=== PATIENT | female | born 1960 | race Caucasian/White ===

== ENCOUNTER 2018-10-31 18:18 | Inpatient (IN) | payer OTHER ==
--- OUTSIDE RECORDS SUMMARY | 2018-10-31 18:20 | XMS REPORT | Continuity of Care Document ---
:1960 Author Organization Interface Problems Problem Status Onset Classification Date Comments Source Date Reported INCISIONAL Active [facility] H[facility] Crohn's Active Problem 09/23/2016 [facility] disease [facility] Hernia, Active Problem 09/23/2016 [facility] incisional [facility] Medications Medication Details Route Status Patient Ordering Order Source Instructions Provider Date Hydromorphone 0.5 mg, Route: Inactive 09/21[facility] Radha IVP, Q5Min, 2015 Medical Dosing Weight Center 51.364, kg, PRN Pain Score 7-10, Start date: 09/20/16 18:30:00 CELLULAR EQUIPMENT REPAIRER, Duration: 4 doses or times, Stop date: Limited # of times Flumazenil 0.2 mg, Route: Inactive 09/21[facility] Radha IVP, PRN, Dosing 2015 Medical Weight 51.364, Center kg, PRN Benzodiazepine Reversal, Initial dose, Start date: 09/20/16 18:30:00 CELLULAR EQUIPMENT REPAIRER, Duration: 30 day, Stop date: 10/20/16 18:29:00 CELLULAR EQUIPMENT REPAIRER Albuterol 0.83 2.49 mg, Route: Inactive 09/21[facility] Radha MG/ML Inhalant NEB, Q20Min, 2015 Medical Solution Dosing Weight Center 51.364, kg, PRN Wheezing, Priority: STAT, Start date: 09/20/16 18:30:00 CELLULAR EQUIPMENT REPAIRER, Duration: 30 day, Stop date: 10/20/16 18:29:00 CELLULAR EQUIPMENT REPAIRER Naloxone 0.4 mg, Route: Inactive 09/21[facility] Radha IVP, Q2MIN, 2015 Medical Dosing Weight Center 51.364, kg, PRN Narcotic Reversal, Start date: 09/20/16 18:30:00 CELLULAR EQUIPMENT REPAIRER, Duration: 8 doses or times, Stop date: Limited # of times Promethazine 6.25 mg, Route: Inactive 09/21[facility] Radha IVPB, ONCE, 2015 Medical Dosing Weight Center 51.364, kg, PRN Nausea & Vomiting, Start date: 09/20/16 18:30:00 CELLULAR EQUIPMENT REPAIRER Ondansetron 4 mg, Route: Inactive [facility] IVP, ONCE, 2016 Medical Dosing Weight Center 51.364, kg, PRN Nausea & Vomiting, Start date: 09/20/16 18:30:00 CELLULAR EQUIPMENT REPAIRER Oxycodone 5 mg, Route: PO, Inactive [facility] Drug form: TAB, 2016 Medical Q4H, Dosing Center Weight 51.364, kg, PRN Pain Score 4-6, Start date: 09/20/16 18:30:00 CELLULAR EQUIPMENT REPAIRER, Duration: 30 day, Stop date: 10/20/16 18:29:00 CELLULAR EQUIPMENT REPAIRER Hydralazine 10 mg, Route: Inactive [facility] IVP, Q20Min, 2016 Medical Dosing Weight Center 51.364, kg, PRN Elevated BP, Start date: 09/20/16 18:30:00 CELLULAR EQUIPMENT REPAIRER, Duration: 2 doses or times, Stop date: Limited # of times Sodium Chloride 500 mL, Infuse Inactive [facility] 0.154 MEQ/ML Over: 20 2015 Medical Injectable minutes, Route: Center Solution IV, ONCE, Dosing Weight 51.364 kg, Start date: 09/20/16 18:30:00 CELLULAR EQUIPMENT REPAIRER, Stop date: 09/20/16 18:30:00 CELLULAR EQUIPMENT REPAIRER Acetaminophen 325 2 tab, PO, Q4H, Active [facility] MG / Hydrocodone PRN Pain Score 2016 Medical Bitartrate 5 MG 4-6, 0 Refill(s) Center Oral Tablet [[place] 5/325] Acetaminophen 325 2 tab, Route: No Longer [place] MG / Hydrocodone PO, Drug Form: Active 2016 Medical Bitartrate 5 MG TAB, Dosing Center Oral Tablet Weight 51.364, [[place] 5/325] kg, Q4H, PRN Pain Score 4-6, Start date: 09/20/16 17:58:00 CELLULAR EQUIPMENT REPAIRER, Duration: 30 day, Stop date: 10/20/16 17:57:00 CELLULAR EQUIPMENT REPAIRER Zofran 4 mg, 2 mL, Inactive [facility] Route: IVP, Drug 2016 Medical form: INJ, ONCE, Center Dosing Weight 51.364, kg, Start date: 09/20/16 17:58:00 CELLULAR EQUIPMENT REPAIRER, Stop date: 09/20/16 17:58:00 CSTNotes: (Same as: Zofran) MEDICATION WASTE Product Size: 4 mg Product Wasted: ___ mg Acetaminophen 325 1 tab, Route: No Longer Radha MG / Hydrocodone PO, Drug Form: Active 2015 Medical Bitartrate 5 MG TAB, Dosing Center Oral Tablet Weight 51.364, [[place] 5/325] kg, Q4H, PRN Pain Score 1-3, Start date: 09/20/16 17:57:00 CELLULAR EQUIPMENT REPAIRER, Duration: 30 day, Stop date: 10/20/16 17:56:00 CELLULAR EQUIPMENT REPAIRER bupivacaine 20 mL, Route: No Longer [place] liposome InFILtration(loc Active 2015 Medical al), Drug Form: Center INJ, ONCALL, Start date: 09/20/16 16:00:00 CELLULAR EQUIPMENT REPAIRER, Duration: 1 doses or timesNotes: (Same as: Exparel) NOT FOR IV use Postoperative analgesia: Infiltration (local): Dose is based on surgical site and volume required to cover the area (in general, the maximum total dose is 266 mg). Bunionectomy: 7 mL into the tissues surrounding the osteotomy and 1 mL into the subcutaneous tissue of the surgical site (total dose=8 mL [106 mg]) Hemorrhoidectomy : 30 mL (20 mL vial diluted with 10 mL NS) divided and administered as 6 injections of 5 mL each (total dose=30 mL [266 mg]) vancomycin 1 gm, Route: Inactive [place] IVPB, Drug form: 2015 Medical INJ, PRE OP, Center Priority: NOW, Start date: 09/20/16 14:44:00 CELLULAR EQUIPMENT REPAIRER, Duration: 1 doses or times, Stop date: 09/21/16 0:00:00 CSTNotes: TIME CRITICAL MEDICATION (Same As: Vancocin) Infusion rate 2001 mg: infuse over 2.5 hours MEDICATION WASTE Product Size: 1000 mg Product Wasted: ___ mg Ibuprofen 200 MG 400 mg=2 tab, Active Radha Oral Tablet PO, Q4H, PRN 2016 Medical [Advil] Pain, # 120 tab, Center 0 Refill(s) dexlansoprazole 60 mg=1 cap, PO, Active Radha 60 MG Enteric Daily, # 30 day, 2016 Medical Coated Capsule 1 Refill(s) Center [Dexilant] Dexilant PO, Daily, 0 Active 09/16/ [facility] Refill(s) [address] [place] [address] Pentasa 1,000 mg, PO, Active [facility] QID, 0 Refill(s) [address] [place] [address] Imuran Daily, 0 Active [facility] Refill(s) [address] [place] [address] Allergies, Adverse Reactions, Alerts Substance Category Reaction Severity Reaction Status Date Comments Source type Reported penicillins Assertion Drug Active [facility] Immunizations Immunization Date Given Site Status Last Updated Comments Source Results Order Name Results Value Reference Date Interpretation Comments Source Range BLOOD BANK Antibody Negative [facility] RESULTS Scrn 2016 [facility] (09/20/16 2:30 PM) [place] BLOOD BANK ABO/Rh O NEG [facility] RESULTS [address] [place] [address] Vital Signs Vital Sign Value Date Comments Source Respitory Rate 12 09/21/2016 [facility] Systolic (mm Hg) 125 09/21/2016 [facility] Diastolic (mm Hg) 58 09/21/2016 [facility] Respitory Rate 15 09/21/2016 [facility] Systolic (mm Hg) 119 09/21/2016 [facility] Diastolic (mm Hg) 57 09/21/2016 [facility] Systolic (mm Hg) 118 09/21/2016 [facility] Diastolic (mm Hg) 57 09/21/2016 [facility] Respitory Rate 12 09/21/2016 [facility] Heart Rate 62 09/20/2016 [facility] Heart Rate 65 09/16/2016 [facility] Height 154.94 cm 09/16/2016 [facility] Weight 51.364 09/16/2016 [facility] BMI Calculated 21.4 09/16/2016 [facility] Encounters Location Location Encounter Encounter Reason Attending ADM DC Status Source Details Type Number For Provider Date Date Visit [id number] Kostas Leon 09/20 09/21 [facility] [place] /[address] [facility] Procedures Procedure Code Date Perfomer Comments Source Resection<sup>1< [id number] of the colon [facility] /sup> 11/[address] [place] [address]
--- OUTSIDE RECORDS SUMMARY | 2018-10-31 18:21 | XMS REPORT | Summary of Care ---
:1960 Author Organization [facility] Address [address] [place], [place] [address]- Encounter [facility] Kanika(JONATHON) [id number] Date(s): 09/20/16 - 09/20/[address] [address]- [place] Discharge Disposition: Home or Self Care Attending Physician: Kostas Call MD Referring Physician: Kostas Call MD Vital Signs Most recent to oldest 1 2 3 [Reference Range]: Height 154.94 cm (09/16/16 10:41 AM) Blood Pressure [90-140/60-90 125/58 mmHg 119/57 mmHg 118/57 mmHg mmHg] (09/20/16 8:30 PM) (09/20/16 7:45 PM) (09/20/16 7:30 PM) Respiratory Rate [14-20 12 BRMIN 15 BRMIN 12 BRMIN BRMIN] *LOW* (09/20/16 7:45 PM) *LOW* (09/20/16 8:30 PM) (09/20/16 7:30 PM) Peripheral Pulse Rate 62 bpm 65 bpm [60-100 bpm] (09/20/16 2:04 PM) (09/16/16 10:41 AM) Weight 51.364 kg (09/16/16 10:41 AM) Body Mass Index 21.4 m2 (09/16/16 10:41 AM) Problem List Condition Effective Dates Status Health Status Informant Crohn's disease(Confirmed) Active Hernia, incisional(Confirmed) Active Allergies, Adverse Reactions, Alerts Substance Reaction Severity Status penicillins Active Medications Advil 200 mg oral tablet 400 mg=2 tab, PO, Q4H, PRN Pain, # 120 tab, 0 Refill(s) Start Date: 09/16/16 Stop Date: 09/26/16 Status: OrderedANES albuterol 0.083% inhalation solution 2.49 mg, Route: NEB, Q20Min, Dosing Weight 51.364, kg, PRN Wheezing, Priority: STAT, Start date: 09/20/16 18:30:00 NEURODIAGNOSTIC TECHNICIAN, Duration: 30 day, Stop date: 10/20/16 18:29:00 NEURODIAGNOSTIC TECHNICIAN Start Date: 09/20/16 Stop Date: 09/20/16 Status: DiscontinuedANES flumazenil 0.2 mg, Route: IVP, PRN, Dosing Weight 51.364, kg, PRN Benzodiazepine Reversal, Initial dose, Start date: 09/20/16 18:30:00 NEURODIAGNOSTIC TECHNICIAN, Duration: 30 day, Stop date: 18:29:00 NEURODIAGNOSTIC TECHNICIAN Start Date: 09/20/16 Stop Date: 09/20/16 Status: DiscontinuedANES hydrALAZINE 10 mg, Route: IVP, Q20Min, Dosing Weight 51.364, kg, PRN Elevated BP, Start date : 09/20/16 18:30:00 NEURODIAGNOSTIC TECHNICIAN, Duration: 2 doses or times, Stop date: Limited # of times Start Date: 09/20/16 Stop Date: 09/20/16 Status: DiscontinuedANES HYDROmorphone 0.5 mg, Route: IVP, Q5Min, Dosing Weight 51.364, kg, PRN Pain Score 7-10, Start date: 09/20/16 18:30:00 NEURODIAGNOSTIC TECHNICIAN, Duration: 4 doses or times, Stop date: Limited # of times Start Date: 09/20/16 Stop Date: 09/20/16 Status: CompletedANES naloxone 0.4 mg, Route: IVP, Q2MIN, Dosing Weight 51.364, kg, PRN Narcotic Reversal, Start date: 09/20/16 18:30:00 NEURODIAGNOSTIC TECHNICIAN, Duration: 8 doses or times, Stop date: Limited # of times Start Date: 09/20/16 Stop Date: 09/20/16 Status: DiscontinuedANES ondansetron 4 mg, Route: IVP, ONCE, Dosing Weight 51.364, kg, PRN Nausea & Vomiting, Start date: 09/20/16 18:30:00 NEURODIAGNOSTIC TECHNICIAN Start Date: 09/20/16 Stop Date: 09/20/16 Status: CompletedANES oxyCODONE 5 mg, Route: PO, Drug form: TAB, Q4H, Dosing Weight 51.364, kg, PRN Pain Score 4 -6, Start date: 09/20/16 18:30:00 NEURODIAGNOSTIC TECHNICIAN, Duration: 30 day, Stop date: 10/20/16 18: 29:00 NEURODIAGNOSTIC TECHNICIAN Start Date: 09/20/16 Stop Date: 09/20/16 Status: DiscontinuedANES oxyCODONE 10 mg, Route: PO, Drug form: TAB, Q4H, Dosing Weight 51.364, kg, PRN Pain Score 7-10, Start date: 09/20/16 18:30:00 NEURODIAGNOSTIC TECHNICIAN, Duration: 30 day, Stop date: 10/20/16 18:29:00 NEURODIAGNOSTIC TECHNICIAN Start Date: 09/20/16 Stop Date: 09/20/16 Status: DiscontinuedANES promethazine 6.25 mg, Route: IVPB, ONCE, Dosing Weight 51.364, kg, PRN Nausea & Vomiting , Start date: 09/20/16 18:30:00 NEURODIAGNOSTIC TECHNICIAN Start Date: 09/20/16 Stop Date: 09/20/16 Status: Discontinuedbupivacaine liposome 20 mL, Route: InFILtration(local), Drug Form: INJ, ONCALL, Start date: 09/20/16 16:00:00 NEURODIAGNOSTIC TECHNICIAN, Duration: 1 doses or times Notes: (Same as: Dengl) NOT FOR IV use Postoperative analgesia: Infiltration (local): Dose is based on surgical site and volume required to cover the area (in general, the maximum total dose is 266 mg).Bunionectomy: 7 mL into the tissues surrounding the osteotomy and 1 mL into the subcutaneous tissue of the surgical site (total dose=8 mL [106 mg])Hemorrhoidectomy: 30 mL ( 20 mL vial diluted with 10 mL NS) divided and administered as 6 injections of 5 mL each (total dose=30 mL [266 mg]) Start Date: 09/20/16 Stop Date: 09/21/16 Status: DiscontinuedDexilant PO, Daily, 0 Refill(s) Start Date: 09/16/16 Status: OrderedDexilant 60 mg oral delayed release capsule 60 mg=1 cap, PO, Daily, # 30 day, 1 Refill(s) Start Date: 09/16/16 Status: OrderedImuran Daily, 0 Refill(s) Start Date: 09/16/16 Status: OrderedNorco 5/325 oral tablet 2 tab, Route: PO, Drug Form: TAB, Dosing Weight 51.364, kg, Q4H, PRN Pain Score 4-6, Start date: 09/20/16 17:58:00 NEURODIAGNOSTIC TECHNICIAN, Duration: 30 day, Stop date: 10/20/16 17 :57:00 NEURODIAGNOSTIC TECHNICIAN Start Date: 09/20/16 Stop Date: 09/21/16 Status: DiscontinuedNorco 5/325 oral tablet 1 tab, Route: PO, Drug Form: TAB, Dosing Weight 51.364, kg, Q4H, PRN Pain Score 1-3, Start date: 09/20/16 17:57:00 NEURODIAGNOSTIC TECHNICIAN, Duration: 30 day, Stop date: 10/20/16 17 :56:00 NEURODIAGNOSTIC TECHNICIAN Start Date: 09/20/16 Stop Date: 09/21/16 Status: DiscontinuedNorco 5/325 oral tablet 2 tab, PO, Q4H, PRN Pain Score 4-6, 0 Refill(s) Start Date: 09/20/16 Status: OrderedPentasa 1,000 mg, PO, QID, 0 Refill(s) Start Date: 09/16/16 Status: OrderedSodium Chloride 0.9% (Bolus) IV 500 mL, Infuse Over: 20 minutes, Route: IV, ONCE, Dosing Weight 51.364 kg, Start date: 09/20/16 18:30:00 NEURODIAGNOSTIC TECHNICIAN, Stop date: 09/20/16 18:30:00 NEURODIAGNOSTIC TECHNICIAN Start Date: 09/20/16 Stop Date: 09/20/16 Status: Discontinuedvancomycin 1 gm, Route: IVPB, Drug form: INJ, PRE OP, Priority: NOW, Start date: 09/20/16 14:44:00 NEURODIAGNOSTIC TECHNICIAN, Duration: 1 doses or times, Stop date: 09/21/16 0:00:00 NEURODIAGNOSTIC TECHNICIAN Notes: TIME CRITICAL MEDICATION(Same As: Vancocin)Infusion rate< 1000 mg: infuse over 1 [id number] - 1500 mg: infuse over 1.5 [id number] - 2000 mg: infuse over 2 hours> 2001 mg: infuse over 2.5 hours MEDICATION WASTE Product Size: 1000 mgProduct Wasted: ___ mg Start Date: 09/20/16 Stop Date: 09/20/16 Status: CompletedZofran 4 mg, 2 mL, Route: IVP, Drug form: INJ, ONCE, Dosing Weight 51.364, kg, Start date: 09/20/16 17:58:00 NEURODIAGNOSTIC TECHNICIAN, Stop date: 09/20/16 17:58:00 NEURODIAGNOSTIC TECHNICIAN Notes: (Same as: Zofran) MEDICATION WASTE Product Size: 4 mgProduct Wasted: ___ mg Start Date: 09/20/16 Stop Date: 09/20/16 Status: Ordered Results BLOOD BANK RESULTS Most recent to oldest [Reference Range]: 1 ABO/Rh O NEG *Unknown* (09/20/16 2:30 PM) Antibody Scrn Negative (09/20/16 2:30 PM) Immunizations No data available for this section Procedures Procedure Date Related Diagnosis Body Site Resection1 1of the colon 11/2015 Social History Social History Type Response Smoking Status Never smoker; Exposure to Tobacco Smoke None; Cigarette Smoking Last 365 Days No; Reg Smoking Cessation Counseling No Assessment and Plan No data available for this section
[2018-10-31 19:14] LABS: Absolute Monocytes 0.5 K/uL (0.1-1.3); Basophils % 0.7 % (0-1.3); Eosinophils % 3.1 % (0-4.4); Hematocrit 39.4 % (36.0-45.0); MPV 8.6 fL (7.6-11.3); Monocytes % 7.8 % (3.3-12.3); RBC Red Blood Cell Count 4.28 M/uL (3.86-4.86)
[2018-10-31 19:15] LABS: Protime INR 1.02
[2018-10-31 19:28] LABS: ALT/SGPT 11 U/L (12-78); AST/SGOT 22 U/L (15-37); Albumin 3.9 g/dL (3.4-5.0); Alkaline Phosphatase 36 U/L (45-117); BUN Blood Urea Nitrogen 15 mg/dL (7-18); Bicarbonate 27 mmol/L (21-32); Bilirubin Direct < 0.1 mg/dL (0-0.2); Bilirubin Total 0.2 mg/dL (0.2-1.0); Glucose Level 104 mg/dL (74-106); Magnesium 2.3 mg/dL (1.8-2.4); NT PRO-BNP 2659 pg/mL (<125); Potassium 3.4 mmol/L (3.5-5.1); Protein, Total 7.5 g/dL (6.4-8.2); Sodium Level 141 mmol/L (136-145)
[2018-10-31 19:32] LABS: Troponin (Emerg Dept Use Only) 0.53 ng/mL (0.0-0.045)
[2018-10-31] MEDS ORDERED: ASPIRIN 81 MG CHEWABLE TABLET ONE (19:58)
[2018-10-31] MEDS ORDERED: POTASSIUM 25 MEQ EFFERV TAB ONE (19:58)
--- NOTE | 2018-10-31 19:58 | EDPHYS ---
Physician Documentation [facility] Name: Lola Elliott Age: 58 yrs Sex: Female : 1960 Arrival Date: 10/31/2018 Time: 18:19 Bed 5 Private MD: Praful Pardo ED Physician César Robert HPI: 10/31 19:00 This 58 yrs old Female presents to ER via Ambulatory with complaints of Chest pm1 Pain, Back Pain. 19:00 The patient or guardian reports chest pain that is located primarily in the mid-sternal pm1 area. Onset: 2 day(s) ago. The pain radiates to back. Associated signs and symptoms: Pertinent positives: shortness of breath, Pertinent negatives: abdominal pain, cough, dizziness, headache, nausea, palpitations, vomiting. The chest pain is described as sharp. Duration: The patient or guardian reports multiple episodes, the episodes last approximately 30 minute(s), with exertion. Modifying factors: the symptoms are aggravated by exertion. Modifying factors: the symptoms are aggravated by eating. The patient has not experienced similar symptoms in the past. The patient has not recently seen a physician, the patient's primary care provider is Dr. Pardo. Chest pain midsternal with radiation to mid back with exertion. Shortness of breath with exertion. Historical: - Allergies: 18:44 PENICILLINS; jl7 - Home Meds: 18:44 Pentasa Oral [Active]; Dexilant oral oral [Active]; jl7 - PMHx: 18:44 Crohn's; jl7 - Immunization history:: Adult Immunizations not up to date. - Social history:: Smoking status: Patient/guardian denies using tobacco. - Ebola Screening: : No symptoms or risks identified at this time. ROS: 19:00 Constitutional: Negative for fever, chills, and weight loss, Eyes: Negative for injury, pm1 pain, redness, and discharge, ENT: Negative for injury, pain, and discharge, Neck: Negative for injury, pain, and swelling. 19:00 Abdomen/GI: Negative for abdominal pain, nausea, vomiting, diarrhea, and constipation, Back: Negative for injury and pain, : Negative for injury, bleeding, discharge, and swelling, MS/Extremity: Negative for injury and deformity, Skin: Negative for injury, rash, and discoloration, Neuro: Negative for headache, weakness, numbness, tingling, and seizure. 19:00 Cardiovascular: Positive for chest pain, Negative for edema, orthopnea, palpitations. 19:00 Respiratory: Positive for shortness of breath, on exertion. Negative for cough, sputum production, wheezing. Exam: 19:00 Constitutional: This is a well developed, well nourished patient who is awake, alert, pm1 and in no acute distress. Head/Face: Normocephalic, atraumatic. Eyes: Pupils equal round and reactive to light, extra-ocular motions intact. Lids and lashes normal. Conjunctiva and sclera are non-icteric and not injected. Cornea within normal limits. Periorbital areas with no swelling, redness, or edema. ENT: Nares patent. No nasal discharge, no septal abnormalities noted. Tympanic membranes are normal and external auditory canals are clear. Oropharynx with no redness, swelling, or masses, exudates, or evidence of obstruction, uvula midline. Mucous membranes moist. Neck: Trachea midline, no thyromegaly or masses palpated, and no cervical lymphadenopathy. Supple, full range of motion without nuchal rigidity, or vertebral point tenderness. No Meningismus. Chest/axilla: Normal chest wall appearance and motion. Nontender with no deformity. No lesions are appreciated. Cardiovascular: Regular rate and rhythm with a normal S1 and S2. No gallops, murmurs, or rubs. Normal PMI, no JVD. No pulse deficits. Respiratory: Lungs have equal breath sounds bilaterally, clear to auscultation and percussion. No rales, rhonchi or wheezes noted. No increased work of breathing, no retractions or nasal flaring. Abdomen/GI: Soft, non-tender, with normal bowel sounds. No distension or tympany. No guarding or rebound. No evidence of tenderness throughout. Back: No spinal tenderness. No costovertebral tenderness. Full range of motion. Skin: Warm, dry with normal turgor. Normal color with no rashes, no lesions, and no evidence of cellulitis. MS/ Extremity: Pulses equal, no cyanosis. Neurovascular intact. Full, normal range of motion. 19:00 NSR, ST depression present V1 to V4 19:00 Neuro: Orientation: is normal, Motor: moves all fours. Vital Signs: 18:44 BP 113 / 75; Pulse 71; Resp 16 S; Temp 99.1(O); Pulse Ox 100% on R/A; Pain 0/10; jl7 19:24 BP 102 / 68; Pulse 81; Resp 18; Pulse Ox 99% ; ea 19:44 Weight 51.26 kg; ea 20:03 BP 106 / 76; Pulse 73; Resp 18; Pulse Ox 98% on R/A; ea 21:03 BP 128 / 81; Pulse 75; Resp 18; Pulse Ox 100% ; ea 21:51 Pain 0/10; ea 22:00 BP 116 / 71; Pulse 70; Resp 18; Pulse Ox 98% on R/A; ea MDM: 18:28 Patient medically screened. pm1 19:56 Data reviewed: vital signs. Data interpreted: Pulse oximetry: on room air is 99 %. pm1 Interpretation: normal. Counseling: I had a detailed discussion with the patient and/or guardian regarding: the historical points, exam findings, and any diagnostic results supporting the discharge/admit diagnosis, lab results, radiology results, the need for further work-up and treatment in the hospital. 19:58 ED course: 0/10 chest pain. pm1 20:20 Physician consultation: Robyn El MD was contacted at 20:15, regarding admission, pm1 patient's condition, and will see patient. 21:05 ED course: Patient reports chest pain. Will repeat EKG and administered nitro. pm1 21:30 ED course: Chest pain 0/10 from nitro x 1. pm1 10/31 18:39 Order name: Basic Metabolic Panel; Complete Time: 19:38 pm1 10/31 18:39 Order name: CBC with Diff; Complete Time: 19:38 pm1 10/31 18:39 Order name: LFT's; Complete Time: 19:38 pm1 10/31 18:39 Order name: Magnesium; Complete Time: 19:38 pm1 10/31 18:39 Order name: NT PRO-BNP; Complete Time: 19:38 pm1 10/31 18:39 Order name: PT-INR; Complete Time: 19:38 pm1 10/31 18:39 Order name: Troponin (emerg Dept Use Only); Complete Time: 19:38 pm1 10/31 21:06 Order name: CBC with Automated Diff EDMS 10/31 21:06 Order name: CBC with Automated Diff EDMS 10/31 21:06 Order name: Comprehensive Metabolic Panel EDMS 10/31 21:06 Order name: Comprehensive Metabolic Panel EDMS 10/31 21:06 Order name: Lipid Profile EDMS 10/31 21:06 Order name: Lipid Profile EDMS 10/31 21:06 Order name: Magnesium EDMS 10/31 18:39 Order name: XRAY Chest (1 view); Complete Time: 20:02 pm1 10/31 21:06 Order name: Echo with Doppler EDMS 10/31 21:06 Order name: Magnesium EDMS 10/31 21:06 Order name: Phosphorus EDMS 10/31 21:06 Order name: Phosphorus EDWI 10/31 21:06 Order name: NT PRO-BNP EDWI 10/31 21:06 Order name: NT PRO-BNP EDWI 10/31 21:06 Order name: Troponin I EDWI 10/31 21:06 Order name: Troponin I EDWI 10/31 21:06 Order name: Troponin I EDWI 10/31 18:39 Order name: EKG; Complete Time: 18:40 pm1 10/31 18:39 Order name: Cardiac monitoring; Complete Time: 18:48 pm1 10/31 18:39 Order name: EKG - Nurse/Tech; Complete Time: 18:48 pm1 10/31 18:39 Order name: IV Saline Lock; Complete Time: 18:48 pm1 10/31 18:39 Order name: Labs collected and sent; Complete Time: 18:48 pm1 10/31 18:39 Order name: O2 Per Protocol; Complete Time: 18:48 pm1 10/31 18:39 Order name: O2 Sat Monitoring; Complete Time: 18:48 pm1 10/31 21:06 Order name: CONS Physician Consult EDWI 10/31 21:06 Order name: Heart Healthy EDWI 10/31 21:07 Order name: EKG; Complete Time: 21:07 pm1 10/31 21:07 Order name: EKG - Nurse/Tech; Complete Time: 21:18 pm1 Administered Medications: 20:00 Drug: Aspirin Chewable Tablet 324 mg Route: PO; ea 20:30 Follow up: Response: No adverse reaction ea 20:01 Drug: Lovenox 1 mg/kg Route: Sub-Q; Site: left lower abdomen; ea 20:30 Follow up: Response: No adverse reaction ea 20: Drug: Potassium Effervescent Tablet 50 mEq Route: PO; ea 20:30 Follow up: Response: No adverse reaction ea 20: Drug: Metoprolol 25 mg Route: PO; ea 20:30 Follow up: Response: No adverse reaction ea 20: CANCELLED (Duplicate Order): Metoprolol 25 mg PO once ea 21:08 Drug: Nitroglycerin 0.4 mg Route: Sublingual; ea 21:51 Follow up: Pain 0/10 Adult; Response: No adverse reaction; Pain is decreased ea Disposition: 10/31/18 19:57 Hospitalization ordered by Robyn El for Inpatient Admission. Preliminary diagnosis is Non-ST elevation (NSTEMI) myocardial infarction. - Bed requested for Telemetry/MedSurg (Inpatient). - Status is Inpatient Admission. ea - Condition is Stable. - Problem is new. - Symptoms have improved. UTI on Admission? No Addendum: 11/12/2018 15:23 Co-signature as Attending Physician, César Robert MD Available for consultation at p s1 all times. . Signatures: Dispatcher [employer] EDMS Yaritza Townsend RN RN cg Chau Saavedra, WENDIE ELECTRICAL SYSTEMS DESIGNER pm1 Arline Maza RN RN jl7 [place] RN RN ea Singer, Phillip, MD MD ps1 Corrections: (The following items were deleted from the chart) 10/31 20: 20:00 Metoprolol 25 mg PO once ordered. ea ea 21:30 19:57 Hospitalization Ordered by Robyn lE MD for Inpatient Admission. Preliminary cg diagnosis is Non-ST elevation (NSTEMI) myocardial infarction. Bed requested for Telemetry/MedSurg (Inpatient). Status is Inpatient Admission. Condition is Stable. Problem is new. Symptoms have improved. UTI on Admission? No. pm1 22:23 21:30 10/31/2018 19:57 Hospitalization Ordered by Robyn El MD for Inpatient ea Admission. Preliminary diagnosis is Non-ST elevation (NSTEMI) myocardial infarction. Bed requested for Telemetry/MedSurg (Inpatient). Status is Inpatient Admission. Condition is Stable. Problem is new. Symptoms have improved. UTI on Admission? No. cg
--- NOTE | 2018-10-31 19:58 | ER ---
Nurse's Notes [facility] Name: Lola Elliott Age: 58 yrs Sex: Female : 1960 Arrival Date: 10/31/2018 Time: 18:19 Bed 5 Private MD: Praful Pardo Diagnosis: Non-ST elevation (NSTEMI) myocardial infarction Presentation: 10/31 18:41 Presenting complaint: Patient states: Chest pain radiating to back x 2 days, reports jl7 SOB, denies nausea. Transition of care: patient was not received from another setting of care. Onset of symptoms was October 30, 2018. Risk Assessment: Do you want to hurt yourself or someone else? Patient reports no desire to harm self or others. Initial Sepsis Screen: Does the patient meet any 2 criteria? No. Patient's initial sepsis screen is negative. Does the patient have a suspected source of infection? No. Patient's initial sepsis screen is negative. Care prior to arrival: None. 18:41 Method Of Arrival: Ambulatory jl7 18:41 Acuity: NATHAN 3 jl7 Triage Assessment: 18:44 General: Appears in no apparent distress. uncomfortable, Behavior is calm, cooperative, jl7 appropriate for age. Pain: Complains of pain in anterior aspect of right upper chest, anterior aspect of left upper chest and mid-sternal area Pain radiates to back Pain currently is 0 out of 10 on a pain scale. at worst was 10 out of 10 on a pain scale. Quality of pain is described as sharp, shooting, Pain began 2-3 days ago. Is intermittent. EENT: No signs and/or symptoms were reported regarding the EENT system. Neuro: Level of Consciousness is awake, alert, obeys commands, Oriented to person, place, time, situation. Cardiovascular: Heart tones present Patient's skin is warm and dry. Rhythm is sinus rhythm. Respiratory: Reports shortness of breath on exertion Airway is patent Respiratory effort is even, unlabored, Respiratory pattern is regular, symmetrical, Breath sounds are clear bilaterally. GI: No signs and/or symptoms were reported involving the gastrointestinal system. : No signs and/or symptoms were reported regarding the genitourinary system. Derm: Skin is pink, warm \T\ dry. Musculoskeletal: No signs and/or symptoms reported regarding the musculoskeletal system. Historical: - Allergies: 18:44 PENICILLINS; jl7 - Home Meds: 18:44 Pentasa Oral [Active]; Dexilant oral oral [Active]; jl7 - PMHx: 18:44 Crohn's; jl7 - Immunization history:: Adult Immunizations not up to date. - Social history:: Smoking status: Patient/guardian denies using tobacco. - Ebola Screening: : No symptoms or risks identified at this time. Screenin:47 Abuse screen: Denies threats or abuse. Denies injuries from another. Nutritional jl7 screening: No deficits noted. Tuberculosis screening: No symptoms or risk factors identified. Fall Risk IV access (20 points). Total Guevara Fall Scale indicates No Risk (0-24 pts). Assessment: 18:47 General: See triage assessment. jl7 19:21 General: Appears in no apparent distress. Behavior is calm, cooperative, appropriate ea for age. Pain: Denies pain. Neuro: Level of Consciousness is awake, alert, obeys commands, Oriented to person, place, time, situation. Cardiovascular: Patient's skin is warm and dry. Respiratory: Airway is patent Respiratory effort is even, unlabored, Respiratory pattern is regular, symmetrical. GI: No signs and/or symptoms were reported involving the gastrointestinal system. : No signs and/or symptoms were reported regarding the genitourinary system. EENT: No signs and/or symptoms were reported regarding the EENT system. Derm: Skin is pink, warm \T\ dry. 20:30 Reassessment: Patient and/or family updated on plan of care and expected duration. Pain ea level reassessed. Patient is alert, oriented x 3, equal unlabored respirations, skin warm/dry/pink. 21:15 Reassessment: Patient and/or family updated on plan of care and expected duration. Pain ea level reassessed. Pt complaining of chest pain, provider notified, medication ordered. 22:19 Reassessment: Patient and/or family updated on plan of care and expected duration. Pain ea level reassessed. Patient is alert, oriented x 3, equal unlabored respirations, skin warm/dry/pink. Pt taken to second floor via wheelchair per tech, pt tolerating well. Patient states feeling better. Vital Signs: 18:44 BP 113 / 75; Pulse 71; Resp 16 S; Temp 99.1(O); Pulse Ox 100% on R/A; Pain 0/10; jl7 19:24 BP 102 / 68; Pulse 81; Resp 18; Pulse Ox 99% ; ea 19:44 Weight 51.26 kg; ea 20:03 BP 106 / 76; Pulse 73; Resp 18; Pulse Ox 98% on R/A; ea 21:03 BP 128 / 81; Pulse 75; Resp 18; Pulse Ox 100% ; ea 21:51 Pain 0/10; ea 22:00 BP 116 / 71; Pulse 70; Resp 18; Pulse Ox 98% on R/A; ea ED Course: 18:19 Patient arrived in ED. mr 18:20 Praful Pardo MD is Private Physician. mr 18:28 Chau Saavedra NP is PHCP. pm1 18:28 César Robert MD is Attending Physician. pm1 18:40 Arline Maza RN is Primary Nurse. jl7 18:42 Triage completed. jl7 18:44 Arm band placed on right wrist. jl7 18:47 Patient has correct armband on for positive identification. Placed in gown. Bed in low jl7 position. Call light in reach. Side rails up X 1. monitoring analyst on. Pulse ox on. NIBP on. Warm blanket given. 18:47 Patient maintains SpO2 saturation greater than 95% on room air. jl7 18:55 Initial lab(s) drawn, by me, sent to lab. EKG done, by ED staff, reviewed by Chau Saavedra NP. Inserted saline lock: 22 gauge in left antecubital area, using aseptic technique. Blood collected. 19:22 XRAY Chest (1 view) In Process Unspecified. EDMS 19:57 Robyn El MD is Hospitalizing Provider. pm1 21:24 No provider procedures requiring assistance completed. Patient admitted, IV remains in ea place. Administered Medications: 20:00 Drug: Aspirin Chewable Tablet 324 mg Route: PO; ea 20:30 Follow up: Response: No adverse reaction ea 20:01 Drug: Lovenox 1 mg/kg Route: Sub-Q; Site: left lower abdomen; ea 20:30 Follow up: Response: No adverse reaction ea 20:01 Drug: Potassium Effervescent Tablet 50 mEq Route: PO; ea 20:30 Follow up: Response: No adverse reaction ea 20:01 Drug: Metoprolol 25 mg Route: PO; maryam 20:30 Follow up: Response: No adverse reaction ea 20:01 CANCELLED (Duplicate Order): Metoprolol 25 mg PO once ea 21:08 Drug: Nitroglycerin 0.4 mg Route: Sublingual; ea 21:51 Follow up: Pain 0/10 Adult; Response: No adverse reaction; Pain is decreased maryam Outcome: 19:57 Decision to Hospitalize by Provider. pm1 20:15 Instructed on the need for admit. ea 22:18 Admitted to Med/surg accompanied by tech, via wheelchair, with chart, Report called to maryam Womack RN 22:18 Condition: stable 22:23 Patient left the ED. ea Signatures: Dispatcher [employer] EDMS Bradford Arora jb1 Lea Moreira Patrick, WENDIE [employer] TRAFFIC CONTROLLER pm1 Arline Maza RN RN giorgio7 [place] RN RN ea
[2018-10-31] MEDS ORDERED: ENOXAPARIN 60 MG/0.6 ML SQ ONE (19:59)
--- NOTE | 2018-10-31 20:00 | RAD REPORT ---
EXAM DESCRIPTION: RAD - Chest Single View - 10/31/2018 7:21 pm CLINICAL HISTORY: Chest pain radiating to the back COMPARISON: November 2015 TECHNIQUE: AP portable chest image was obtained 1911 hours . FINDINGS: Lungs are clear. Heart and vasculature are normal. No measurable pleural effusion and no p neumothorax. No acute bony abnormality seen. No acute aortic findings suspected. IMPRESSION: No acute cardiopulmonary process. No significant change from comparison.
[2018-10-31] MEDS ORDERED: METOPROLOL TAR 25 MG TAB ONE (20:03)
[2018-10-31] MEDS ORDERED: ONDANSETRON 4 MG/2 ML VIAL IV PRN (20:57)
[2018-10-31] MEDS ORDERED: ACETAMINOPHEN 500 MG TAB PO PRN (20:57)
[2018-10-31] MEDS ORDERED: ALPRAZOLAM 0.25 MG TABLET PO PRN (20:57)
[2018-10-31] MEDS: METOPROLOL TAR 50 MG TAB PO SCH (21:00)
[2018-10-31] MEDS ORDERED: NITROGLYCERIN 0.4 MG/TAB SL ONE (21:13)
[2018-10-31] MEDS: ATORVASTATIN 20 MG TAB PO SCH (23:23)
[2018-11-01 02:41] LABS: Urine Appearance CLEAR; Urine Bilirubin NEGATIVE (NEG); Urine Blood NEGATIVE (NEG); Urine Color YELLOW; Urine Glucose NEGATIVE (NEG); Urine Protein NEGATIVE (NEG); Urine Urobilinogen 0.2 mg/dL (0.2-1.0)
[2018-11-01 03:10] LABS: Urine Microscopic Reflex NO UMIC
[2018-11-01 05:45] LABS: Absolute Lymphocytes (CBC) 1.7 K/uL (0.7-4.9); Absolute Monocytes 0.5 K/uL (0.1-1.3); Absolute Neutrophil 5.7 K/uL (1.8-8.0); Basophils % 0.3 % (0-1.3); Eosinophils % 2.8 % (0-4.4); Hematocrit 38.4 % (36.0-45.0); Lymphocytes % 20.8 % (15.3-44.8); MPV 7.9 fL (7.6-11.3); Monocytes % 5.8 % (3.3-12.3)
[2018-11-01 06:08] LABS: ALT/SGPT 10 U/L (12-78); AST/SGOT 16 U/L (15-37); Alkaline Phosphatase 30 U/L (45-117); BUN Blood Urea Nitrogen 16 mg/dL (7-18); Bicarbonate 27 mmol/L (21-32); Bilirubin Total 0.3 mg/dL (0.2-1.0); Glucose Level 90 mg/dL (74-106); Sodium Level 141 mmol/L (136-145)
[2018-11-01 06:09] LABS: Albumin 3.4 g/dL (3.4-5.0); HDL Cholesterol 54 mg/dL (40-60); LDL Cholesterol, Calculated 131 (<130); Magnesium 2.1 mg/dL (1.8-2.4); NT PRO-BNP 2521 pg/mL (<125); Phosphorus 3.6 mg/dL (2.5-4.9); Protein, Total 6.6 g/dL (6.4-8.2)
[2018-11-01] MEDS: MORPHINE 4 MG/ML SYR IV PRN (07:49)
--- NOTE | 2018-11-01 07:57 | P.HP ---
Certification for Inpatient Patient admitted to: Inpatient With expected LOS: >2 Midnights Patient will require the following post-hospital care: None Practitioner: I am a practitioner with admitting privileges, knowledge of patient current condition, hospital course, and medical plan of care. Services: Services provided to patient in accordance with Admission requirements found in Title 42 Section 412.3 of the Code of Federal Regulations Patient History Date of Service: 10/31/18 Reason for admission: Chest pain rule out acute coronary syndrome History of Present Illness: Patient is a very healthy 58-year-old female who only has a history of Crohn's disease. She takes very good care of herself and walks about 3 miles daily. She has never had any cardiac issues. She is Ali been in the hospital on 1 occasion and that was related to her Crohn's disease flaring. She required a partial colectomy. She has done fine since that time. Yesterday she states she was noticing that she was suddenly feeling more short of breath. She was also having chest pain. This chest pain felt like pressure. She decided a go see her GI doctor(uLlu) who told her she needed to go into the ER immediately. In the ER, her workup revealed that she had mildly elevated troponins. She also had an elevated BNP. She is given nitroglycerin in the ER and her chest pain improved. She has not had any chest pain since that time. Because of her symptomatology and her elevated troponins will go ahead and admit her to the hospital and treated with anti coagulation. Will get Cardiology consultation as well. Allergies Penicillins Allergy (Verified 10/31/18 22:00) Shortness of breath Home Medications: Dexlansoprazole [Kapidex] 1 cap PO DAILY 10/31/18 Linaclotide [Linzess] 1 cap PO DAILY 10/31/18 Mesalamine [Pentasa*] 4 cap PO DAILY 10/31/18 azaTHIOprine [Azathioprine] 2 tab PO DAILY 10/31/18 - Past Medical/Surgical History Has patient received pneumonia vaccine in the past: No Diabetic: No -: crohn's disease -: hernia sx -: Partial colectomy-3ft colon removed - Family History Father Family History: Reviewed- Non-Contributory - Social History Smoking Status: Never smoker Alcohol use: Yes CD- Drugs: No Caffeine use: No Place of Residence: Home Review of Systems 10-point ROS is otherwise unremarkable Physical Examination - Vital Signs Temperature: 97.3 F Blood Pressure: 98/58 Pulse: 67 Respirations: 18 Pulse Ox (%): 98 - Physical Exam General: Alert, In no apparent distress, Oriented x3 HEENT: Atraumatic, PERRLA, Mucous membr. moist/pink, EOMI, Sclerae nonicteric Neck: Supple, 2+ carotid pulse no bruit, No LAD, Without JVD or thyroid abnormality Respiratory: Clear to auscultation bilaterally, Normal air movement Cardiovascular: Regular rate/rhythm, Normal S1 S2, No murmurs Gastrointestinal: Normal bowel sounds, Soft and benign, Non-distended, No tenderness Musculoskeletal: No clubbing, No swelling, No tenderness Integumentary: No rashes Neurological: Normal gait, Normal speech, Normal strength at 5/5 x4 extr, Normal tone, Sensation intact, Cranial nerves 3-12 intact, Normal affect Lymphatics: No axilla or inguinal lymphadenopathy - Studies Laboratory Data (last 24 hrs) 10/31/18 18:45: PT 12.0, INR 1.02 10/31/18 18:45: WBC 6.8, Hgb 13.4, Hct 39.4, Plt Count 467 H 10/31/18 18:45: Sodium 141, Potassium 3.4 L, BUN 15, Creatinine 0.84, Glucose 104, Magnesium 2.3, Total Bilirubin 0.2, AST 22, ALT 11 L, Alkaline Phosphatase 36 L Assessment & Plan - Problems (Diagnosis) (1) Non-ST elevation (NSTEMI) myocardial infarction Current Visit: Yes Status: Acute (2) Elevated brain natriuretic peptide (BNP) level Current Visit: Yes Status: Acute (3) Elevated troponin Current Visit: Yes Status: Acute (4) History of Crohn's disease Current Visit: Yes Status: Acute - Plan 1. Serial troponins and EKG repeat in the morning 2. Cardiology consultation 3. Echocardiogram and further intervention as recommended per Cardiology 4. Anti-platelet therapy, anti coagulation, beta-dao, statin, and O2 as needed 5. IV morphine for pain 6. Nitro p.r.n. 7. NPO after midnight 8. GI and DVT prophylaxis Discharge Plan: Home Plan to discharge in: Greater than 2 days - Advance Directives Does patient have a Living Will: No Does patient have a Durable POA for Healthcare: No - Code Status/Comfort Care Code Status Assessed: Yes Code Status: Full Code Critical Care: No Time Spent Managing PTS Care (In Minutes): 50
[2018-11-01] MEDS: METOPROLOL TAR 50 MG TAB PO SCH ×2 (09:50→21:03)
[2018-11-01] MEDS: CLOPIDOGREL 75 MG TABLET PO SCH (09:51)
[2018-11-01] MEDS: ENOXAPARIN 60 MG/0.6 ML SQ SCH ×2 (09:52→21:03)
[2018-11-01] MEDS: ASPIRIN 325 MG TAB PO SCH (09:52)
--- NOTE | 2018-11-01 11:08 | P.PN ---
Subjective Date of Service: 11/01/18 Chief Complaint: Chest pain rule out acute coronary syndrome Subjective: No C/O voiced, Tolerating diet, Improving Patient seen and examined at bedside. No family at bedside. Chart reviewed and case discussed with nursing staff. Chest pain has resolved this morning. No new complaints or concerns Review of Systems 10-point ROS is otherwise unremarkable Physical Examination - Vital Signs Temperature: 97.9 F Blood Pressure: 112/66 Pulse: 68 Respirations: 14 Pulse Ox (%): 96 - Physical Exam General: Alert, In no apparent distress, Oriented x3 HEENT: Atraumatic, PERRLA, EOMI Neck: Supple, JVD not distended Respiratory: Clear to auscultation bilaterally, Normal air movement Cardiovascular: Regular rate/rhythm, Normal S1 S2 Gastrointestinal: Normal bowel sounds, No tenderness Musculoskeletal: No tenderness Integumentary: No rashes Neurological: Normal speech, Normal tone, Normal affect Lymphatics: No axilla or inguinal lymphadenopathy - Studies Laboratory Data (last 24 hrs) 10/31/18 18:45: PT 12.0, INR 1.02 10/31/18 18:45: WBC 6.8, Hgb 13.4, Hct 39.4, Plt Count 467 H 10/31/18 18:45: Sodium 141, Potassium 3.4 L, BUN 15, Creatinine 0.84, Glucose 104, Magnesium 2.3, Total Bilirubin 0.2, AST 22, ALT 11 L, Alkaline Phosphatase 36 L Assessment And Plan - Current Problems (Diagnosis) (1) Chest pain Current Visit: Yes Status: Acute Qualifiers: Chest pain type: unspecified Qualified Code(s): R07.9 - Chest pain, unspecified (2) Elevated brain natriuretic peptide (BNP) level Current Visit: Yes Status: Acute (3) Elevated troponin Current Visit: Yes Status: Acute (4) History of Crohn's disease Current Visit: Yes Status: Acute (5) Non-ST elevation (NSTEMI) myocardial infarction Current Visit: Yes Status: Acute - Plan 1. Serial troponins trending down 2. Cardiology consultation, pending 3. Echocardiogram and further intervention as recommended per Cardiology 4. Anti-platelet therapy, anti coagulation, beta-dao, statin, and O2 as needed 5. IV morphine for pain 6. Nitro p.r.n. DVT prophylaxis: Lovenox GI prophylaxis: Not needed Diet: Heart healthy, NPO after midnight Disposition: Pending symptomatic improvement and cardiology consultation.
--- NOTE | 2018-11-01 17:27 | EKG ---
Test Date: 2018-11-01 Test Time: 07:49:35 Grounds Person: MEASUREMENT RESULTS: Intervals: Rate: 60 ND: 152 QRSD: 70 QT: 534 QTc: 534 [place]: P: 47 ND: 152 QRS: 49 T: 222 INTERPRETIVE STATEMENTS: Normal sinus rhythm ST & Marked T wave abnormality, consider anterolateral ischemia Prolonged QT Abnormal ECG Compared to ECG 10/31/2018 21:12:26 Possible ischemia now present Prolonged QT interval now present T-wave abnormality still present Electronically Signed On 11-01-18 17:17:54 ENGINEERING PRODUCTION LIAISON by Bebeto Lockett
--- NOTE | 2018-11-01 17:28 | EKG ---
Test Date: 2018-10-31 Test Time: 21:12:26 Welder Tech: ARLET MEASUREMENT RESULTS: Intervals: Rate: 85 SD: 168 QRSD: 68 QT: 418 QTc: 497 [place]: P: 66 SD: 168 QRS: 39 T: 77 INTERPRETIVE STATEMENTS: Normal sinus rhythm Nonspecific T wave abnormality Abnormal ECG Compared to ECG 10/31/2018 18:33:41 Possible ischemia no longer present Prolonged QT interval no longer present T-wave abnormality still present Electronically Signed On 11-01-18 17:18:06 STOCK CONTROL CLERK by Bebeto Lockett
--- NOTE | 2018-11-01 17:28 | EKG ---
Test Date: 2018-10-31 Test Time: 18:33:41 Conveyor Monitor: JUAN F MEASUREMENT RESULTS: Intervals: Rate: 76 PA: 160 QRSD: 82 QT: 444 QTc: 499 [place]: P: 53 PA: 160 QRS: 43 T: 154 INTERPRETIVE STATEMENTS: Normal sinus rhythm T wave abnormality, consider anterolateral ischemia Prolonged QT Abnormal ECG No previous ECG available for comparison Electronically Signed On 11-01-18 17:18:11 UNIVERSITY DEMONSTRATOR by Bebeto Lockett
[2018-11-01] MEDS: ATORVASTATIN 20 MG TAB PO SCH (21:03)
--- NOTE | 2018-11-02 02:31 | CON ---
Date of Consultation: 11/01/[address] Foy's service on 11/01/2018. I saw the patient on 11/01/2018. Reason For Consultation: Non-ST elevation myocardial infarction. History Of Present Illness: Ms. Elliott is a 58-year-old woman with history of Crohn disease only. No previous cardiac history. Came in with exertional chest pain, some nausea and shortness of breath. No diaphoresis. Denied PND, orthopnea, pedal edema, palpitations, or syncope. EKG showed nonspecif ic changes but her troponin was 0.53. She has an LDL of 131, otherwise normal blood work. BNP was 2 521. She is asymptomatic now. Past Medical History: Crohn disease. Medications: Pentasa and Dexilant. Review of Systems: Negative. Social History: Negative. Family History: Noncontributory. Physical Examination: Vital Signs: Stable, afebrile. HEENT: Negative. Neck: Supple without any bruit, lymphadenopathy, JVD, or thyromegaly. Chest: Clear to auscultation and percussion. Cardiac: Revealed a regular rhythm and rate without any murmurs, gallops, or rubs. Abdomen: Benign. Extremities: Revealed no clubbing, cyanosis, or edema. Diagnostic Data: As stated earlier. Impression And Plan: Non-ST elevation myocardial infarction. No EKG changes. The patient needs to b e on aspirin, statin, beta-blockers. She needs to have nitroglycerin p.r.n. She can be observed for another 24 hours and hopefully send her home. She was instructed to limit her physical activities. We will call her early next week to get her set up for a heart catheterization. She understands the risk and the benefit of the procedure. She agrees to proceed. TOSHIA/LEXI Voice ID: [id number] Report ID: [id number]
[2018-11-02] MEDS ORDERED: NITROGLYCERIN 0.4 MG/TAB SL ONE ×2 (05:47→06:01)
--- NOTE | 2018-11-02 06:59 | P.PN ---
Date of Service: 11/02/18 The patient start complaining of pressure like chest pain at about 5:30 AM, 8/ 10 of intensity, EKG shows T wave pseudo-normalization in V2-V3. Pain improved with Nitro SL. Continue Full anticoagulation, ASA, statins, plavix, beta dao. Will keep her NPO for potential cardiac work up. Dr Lockett was notified by charge nurse.
[2018-11-02] MEDS: MORPHINE 4 MG/ML SYR IV PRN (07:24)
--- NOTE | 2018-11-02 07:54 | EKG ---
Test Date: 2018-11-02 Test Time: 05:31:33 Rib Cutter: HB MEASUREMENT RESULTS: Intervals: Rate: 62 MA: 174 QRSD: 82 QT: 486 QTc: 493 [place]: P: 57 MA: 174 QRS: 64 T: 249 INTERPRETIVE STATEMENTS: Normal sinus rhythm Septal infarct, age undetermined ST & T wave abnormality, consider inferolateral ischemia Abnormal ECG Compared to ECG 11/01/2018 07:49:35 Myocardial infarct finding now present ST (T wave) deviation now present T-wave abnormality no longer present Prolonged QT interval no longer present Possible ischemia still present Electronically Signed On 11-02-18 07:53:42 TRAFFIC RECORDER by Bebeto Lockett
[2018-11-02] MEDS: ENOXAPARIN 60 MG/0.6 ML SQ SCH (09:00)
[2018-11-02] MEDS: CLOPIDOGREL 75 MG TABLET PO SCH (09:00)
[2018-11-02] MEDS: METOPROLOL TAR 50 MG TAB PO SCH (09:09)
[2018-11-02] MEDS: ASPIRIN 325 MG TAB PO SCH (09:10)
--- NOTE | 2018-11-02 14:15 | P.DS ---
Admission Date: 10/31/18 Discharge Date: 11/02/18 Disposition: TRANSFER TO [facility] Reason for Admission: Chest pain rule out acute coronary syndrome - Problems (1) Chest pain Onset Date: 11/01/18 Status: Acute Qualifiers: Chest pain type: unspecified Qualified Code(s): R07.9 - Chest pain, unspecified (2) Elevated brain natriuretic peptide (BNP) level Onset Date: 11/01/18 Status: Acute (3) Elevated troponin Onset Date: 11/01/18 Status: Acute (4) History of Crohn's disease Onset Date: 11/01/18 Status: Acute (5) Non-ST elevation (NSTEMI) myocardial infarction Onset Date: 11/01/18 Status: Acute Brief History of Present Illness: Patient is a very healthy 58-year-old female who only has a history of Crohn's disease. She takes very good care of herself and walks about 3 miles daily. She has never had any cardiac issues. She is Ali been in the hospital on 1 occasion and that was related to her Crohn's disease flaring. She required a partial colectomy. She has done fine since that time. Yesterday she states she was noticing that she was suddenly feeling more short of breath. She was also having chest pain. This chest pain felt like pressure. She decided a go see her GI doctor(Lulu) who told her she needed to go into the ER immediately. In the ER, her workup revealed that she had mildly elevated troponins. She also had an elevated BNP. She is given nitroglycerin in the ER and her chest pain improved. She has not had any chest pain since that time. Because of her symptomatology and her elevated troponins will go ahead and admit her to the hospital and treated with anti coagulation. Will get Cardiology consultation as well. Allergies Hospital Course: Patient was admitted for non Stamey and chest pain. IV fluids were started, aspirin, statin, Plavix, beta-blockers were started on patient. Morphine and nitro ordered for pain control. Cardiology was consulted. Initially, Cardiology recommended outpatient cath. Patient continued to have pressure- like chest pain overnight,8/10 intensity, EKG with T-wave pseudonormalization in V2 and V3. Pain did improve with nitro though it did return a few hr later. Cardiology was notified and per cardiology recommendations, patient was transferred to [facility] in [place] for cardiac catheterization today as he did not have the resources available today. Vital Signs/Physical Exam: Temp Pulse Resp BP Pulse Ox 97.9 F 56 16 94/57 L 100 11/02/18 12:00 11/02/18 12:00 11/02/18 12:00 11/02/18 12:00 11/02/18 12:00 General: Alert, In no apparent distress, Oriented x3 HEENT: Atraumatic, PERRLA, EOMI Neck: Supple, JVD not distended Respiratory: Clear to auscultation bilaterally, Normal air movement Cardiovascular: Regular rate/rhythm, Normal S1 S2 Gastrointestinal: Normal bowel sounds, No tenderness Musculoskeletal: No tenderness Integumentary: No rashes Neurological: Normal speech, Normal tone, Normal affect Lymphatics: No axilla or inguinal lymphadenopathy Laboratory Data at Discharge: WBC 8.1 K/uL (4.3-10.9) D 11/01/18 05:24 Hgb 13.0 g/dL (12.0-15.0) 11/01/18 05:24 Hct 38.4 % (36.0-45.0) 11/01/18 05:24 Plt Count 415 K/uL (152-406) H 11/01/18 05:24 PT 12.0 SECONDS (9.5-12.5) 10/31/18 18:45 INR 1.02 10/31/18 18:45 Sodium 141 mmol/L (136-145) 11/01/18 05:24 Potassium 4.0 mmol/L (3.5-5.1) 11/01/18 05:24 BUN 16 mg/dL (7-18) 11/01/18 05:24 Creatinine 0.66 mg/dL (0.55-1.3) 11/01/18 05:24 Glucose 90 mg/dL (74-106) 11/01/18 05:24 Phosphorus 3.6 mg/dL (2.5-4.9) 11/01/18 05:24 Magnesium 2.1 mg/dL (1.8-2.4) 11/01/18 05:24 Total Bilirubin 0.3 mg/dL (0.2-1.0) 11/01/18 05:24 AST 16 U/L (15-37) 11/01/18 05:24 ALT 10 U/L (12-78) L 11/01/18 05:24 Alkaline Phosphatase 30 U/L (45-117) L 11/01/18 05:24 Troponin I 0.27 ng/mL (0.0-0.045) H 11/01/18 05:24 Triglycerides 70 mg/dL (<150) 11/01/18 05:24 Cholesterol 199 mg/dL (<200) 11/01/18 05:24 HDL Cholesterol 54 mg/dL (40-60) 11/01/18 05:24 Cholesterol/HDL Ratio 3.69 11/01/18 05:24 Home Medications: Dexlansoprazole [Kapidex] 1 cap PO DAILY 10/31/18 Linaclotide [Linzess] 1 cap PO DAILY 10/31/18 Mesalamine [Pentasa*] 4 cap PO DAILY 10/31/18 azaTHIOprine [Azathioprine] 2 tab PO DAILY 10/31/18 ALPRAZolam [Xanax*] 0.25 mg PO TIDP PRN tab 11/02/18 Aspirin Tab [Zion Aspirin*] 325 mg PO DAILY tab 11/02/18 Atorvastatin Calcium [Lipitor*] 40 mg PO BEDTIME tab 11/02/18 Clopidogrel Bisulfate [Plavix*] 75 mg PO DAILY tablet 11/02/18 Enoxaparin Sodium [Lovenox 60 MG INJ*] 50 mg SQ Q12H syr 11/02/18 Metoprolol Tartrate [Lopressor*] 50 mg PO BID tab 11/02/18 Morphine [Morphine Sulfate*] 4 mg IV Q4HP PRN syr 11/02/18 Ondansetron [Zofran*] 4 mg IV Q6HP PRN vial 11/02/18 Pharmacy Consult 1 ea XX DAILYPRN PRN each 11/02/18 Followup: Bebeto Lockett MD [ACTIVE - CAN ADMIT] - Physician Review: Patient Assessed, Agree with Above Assessment and Plan Time spent managing pt's care (in minutes): 55
--- NOTE | 2018-11-02 14:46 | EKG ---
Test Date: 2018-11-02 Test Time: 06:27:24 Semiautomatic Stitcher Operator: RT MEASUREMENT RESULTS: Intervals: Rate: 65 [place]: 176 QRSD: 80 QT: 488 QTc: 507 [place]: P: 58 [place]: 176 QRS: 51 T: 223 INTERPRETIVE STATEMENTS: Normal sinus rhythm T wave abnormality, consider inferior ischemia T wave abnormality, consider anterolateral ischemia Prolonged QT Abnormal ECG Compared to ECG 11/02/2018 05:31:33 T-wave abnormality now present Prolonged QT interval now present Myocardial infarct finding no longer present ST (T wave) deviation no longer present Possible ischemia still present Electronically Signed On 11-02-18 14:44:19 MEDICAL MASSAGE THERAPIST by Bebeto Lockett
--- NOTE | 2018-11-02 19:31 | PN ---
Date of Progress Note: 11/02/2018 Subjective: Mrs. Elliott was seen yesterday on 11/01/2018 with a non-ST elevation myocardial infarctio n. She had been pain free since admission, on beta-blockers, aspirin, statin, and Lovenox. 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 EKG showed T-wave inversion laterally. C hest pain lasted approximately an hour, was relieved with nitroglycerin. The patient continues to be on aspirin, beta blockers, Lovenox, and statin. The case was discussed with her in detail. I felt very uncomfortable sending Mrs. Elliott home. The patient was recommended to be [facility] She will be transferred today to Dr. Agusto Olson for a heart catheterization with p ossible intervention. She understands the risk and the benefit of the procedure. She agreed to proc eed. I discussed the case personally with Dr. Olson. The patient will get clear liquid breakfas t and then stays n.p.o. after that. Case was discussed with Dr. Foy. TOSHIA/LEXI Voice ID: [id number] Report ID: [id number]
== END 2018-11-02 13:07 | disposition short-term general hospital (02) | DRG 281 ==
LOC: ER 18:18 → ERHOLD 20:58 → 2ND 22:08
PROVIDERS: ADMIT Hospitalist; ATTEND Family Medicine
DX: I21.4 Non-ST elevation (NSTEMI) myocardial infarction (principal); K50.90 Crohn's disease, unspecified, without complications; R07.9 Chest pain, unspecified; R79.89 Other specified abnormal findings of blood chemistry; Z88.0 Allergy status to penicillin; Z90.49 Acquired absence of other specified parts of digestive tract
CPT/HCPCS: 36415; 71045; 80048; 80053; 80061; 80076; 81003; 83735; 83880; 84100; 84484; 85025; 85610; 93005; 96372; 99285; J1650

== ENCOUNTER 2019-03-10 18:21 | Emergency (ER) | payer OTHER ==
--- OUTSIDE RECORDS SUMMARY | 2019-03-10 18:23 | XMS REPORT | Clinical Summary ---
:[address] [facility] Address [address] [place] [address] Care Team Providers Name Role Phone Unavailable Primary Care Provider Unavailable Allergies Active Allergy Reactions Severity Noted Date Comments Penicillins Swelling 11/02/2018 Medications Medication Sig Dispensed Refills Start Date End Date Status azaTHIOprine (IMURAN) Take 100 mg by 0 Active 50 mg tablet mouth daily. mesalamine (PENTASA) Take 2,000 mg 0 Active 500 MG CR capsule by mouth daily. dexlansoprazole 60 mg Take 60 mg by 0 Active capsule mouth daily. linaclotide 145 mcg Cap Take 145 mcg 0 Active by mouth daily. aspirin 81 MG chewable Take 1 tablet 30 tablet 11 11/04/2018 11/04/2019 Active tablet (81 mg total) by mouth daily. atorvastatin (LIPITOR) Take 1 tablet 30 tablet 0 11/03/2018 11/03/2019 Active 80 MG tablet (80 mg total) by mouth nightly. metoprolol (LOPRESSOR) Take 1 tablet 60 tablet 0 11/03/2018 11/03/2019 Active 25 MG tablet (25 mg total) by mouth 2 (two) times daily. ticagrelor (BRILINTA) Take 1 tablet 60 tablet 0 11/03/2018 Active 90 mg Tab tablet (90 mg total) by mouth 2 (two) times daily. HYDROcodone-acetaminoph Take 1 tablet 20 tablet 0 11/03/2018 11/13/2018 en (NORCO 5-325) 5-325 by mouth every mg per tablet 4 (four) hours as needed for up to 10 days. Max Daily Amount: 6 tablets Active Problems Problem Noted Date Hematoma 11/06/2018 Crohn's colitis 11/03/2018 HLD (hyperlipidemia) 11/03/2018 GERD (gastroesophageal reflux disease) 11/03/2018 NSTEMI (non-ST elevated myocardial infarction) 11/02/2018 Encounters Date Type Specialty Care Team Description 11/02/2018 Surgery Pauline Olson CATH & PCI Agusot Cortes MD 11/02/2018 - Hospital Encounter Cardiology [facility] Crohn's disease of 11/05/2018 Agusto Cortes colon with MD complication (HCC) 11/02/2018 Orders Only General Internal Medicine 11/02/2018 Travel after 03/09/2018 Social History Tobacco Use Types Packs/Day Years Used Date Never Assessed Sex Assigned at Date Recorded Not on file Job Start Date Occupation Industry Not on file Not on file Not on file Travel History Travel Start Travel End No recent travel history available. Last Filed Vital Signs Vital Sign Reading Time Taken Blood Pressure 117/63 11/05/2018 12:41 PM [employer] Pulse 103 11/05/2018 12:41 PM [employer] Temperature 36.3 C (97.4 F) 11/05/2018 12:41 PM [employer] Respiratory Rate 18 11/05/2018 12:41 PM [employer] Oxygen Saturation 100% 11/05/2018 12:41 PM [employer] Inhaled Oxygen Concentration - - Weight 49.4 kg (109 lb) 11/03/2018 7:30 AM [employer] Height 154.9 cm (5' 1") 11/02/2018 2:40 PM [employer] Body Mass Index 20.6 11/03/2018 7:30 AM [employer] Plan of Treatment Not on file Implants Implanted Type Area Fibre Composite Technician Device Shelf Model / Identifier Expiration Serial / Date Lot Synergy Cardiovascular N/A: [place] [id number] 06/07/2020 [id number] / Implanted: Qty: 1 on 11/02/2018 by Agusto Olson MD [employer] / [id number] Procedures Procedure Name Priority Date/Time Associated Comments Diagnosis VASCULAR DIAGRAM -SCAN 12/31/2018 4:41 PM [employer] VASCULAR DIAGRAM -SCAN 12/31/2018 4:41 PM [employer] VASCULAR DIAGRAM -SCAN 12/08/2018 8:51 AM [employer] RHYTHM STRIP - SCAN 11/20/2018 3:20 PM [employer] CARDIAC CATH REPORT - 11/20/2018 3:20 SCAN PM [employer] CARDIAC CATH REPORT - 11/13/2018 5:41 SCAN PM [employer] CBC W/PLT COUNT & AUTO STAT 11/05/2018 12:17 Results for this DIFFERENTIAL PM [employer] procedure are in the results section. CBC W/PLT COUNT & AUTO STAT 11/05/2018 12:17 Results for this DIFFERENTIAL PM [employer] procedure are in the results section. ECHOCARDIOGRAM REPORT - 11/04/2018 9:30 SCAN AM [employer] PROTHROMBIN TIME/INR STAT 11/04/2018 9:08 Results for this AM [employer] procedure are in the results section. CBC W/PLT COUNT & AUTO STAT 11/04/2018 5:27 Results for this DIFFERENTIAL AM [employer] procedure are in the results section. CBC W/PLT COUNT & AUTO STAT 11/04/2018 5:27 Results for this DIFFERENTIAL AM [employer] procedure are in the results section. CBC W/PLT COUNT & AUTO Routine 11/03/2018 9:01 Results for this DIFFERENTIAL PM [employer] procedure are in the results section. CBC W/PLT COUNT & AUTO Routine 11/03/2018 9:01 Results for this DIFFERENTIAL PM [employer] procedure are in the results section. TRANSFUSION SERVICE 11/03/2018 6:00 REPORT - SCAN PM [employer] ECG 12-LEAD Routine 11/03/2018 1:13 PM [employer] Procedure Note - Interface, External Ris In - 11/03/2018 1:16 PM [employer] Ventricular Rate 69 BPM Atrial Rate 69 BPM P-R Interval 174 ms QRS Duration 88 ms Q-T Interval 454 ms QTC Calculation(Bazett) 486 ms P [place] 59 degrees R [place] 58 degrees T [place] 252 degrees Normal sinus rhythm ST & Marked T wave abnormality, consider anterolateral ischemia Prolonged QT Abnormal ECG When compared with ECG of 02-NOV-2018 15:21, No significant change was found ECG 12-LEAD Routine 11/03/2018 1:13 Results for this PM [employer] procedure are in the results section. 2D ECHO W/ DOPPLER MICHAEL 11/03/2018 11:20 Results for this (CW/PW/COLOR) AM [employer] procedure are in the results section. ARTERIAL DOPPLER LEG, Routine 11/03/2018 10:44 Results for this RIGHT AM [employer] procedure are in the results section. CBC W/PLT COUNT & Routine 11/03/2018 4:24 Results for this AUTO DIFFERENTIAL AM [employer] procedure are in the results section. MAGNESIUM Routine 11/03/2018 4:24 Results for this AM [employer] procedure are in the results section. BASIC METABOLIC PANEL Routine 11/03/2018 4:24 Results for this (7) AM [employer] procedure are in the results section. CBC W/PLT COUNT & Routine 11/03/2018 4:24 Results for this AUTO DIFFERENTIAL AM [employer] procedure are in the results section. TROPONIN I STAT 11/03/2018 4:24 Results for this AM [employer] procedure are in the results section. POCT-ACT Routine 11/02/2018 11:38 Results for this PM [employer] procedure are in the results section. TROPONIN I STAT 11/02/2018 10:22 Results for this PM [employer] procedure are in the results section. POCT-ACT Routine 11/02/2018 10:16 Results for this PM [employer] procedure are in the results section. POCT-ACT Routine 11/02/2018 9:16 Results for this PM [employer] procedure are in the results section. POCT-ACT Routine 11/02/2018 5:38 Results for this PM [employer] procedure are in the results section. POCT-ACT Routine 11/02/2018 5:13 Results for this PM [employer] procedure are in the results section. TYPE AND SCREEN, Routine 11/02/2018 4:06 Results for this AUTOMATED PM [employer] procedure are in the results section. HEMOGLOBIN A1C AP Routine 11/02/2018 4:06 Results for this PM [employer] procedure are in the results section. LIPID PANEL Routine 11/02/2018 4:06 Results for this PM [employer] procedure are in the results section. APTT Routine 11/02/2018 4:06 Results for this PM [employer] procedure are in the results section. PROTHROMBIN TIME/INR Routine 11/02/2018 4:06 Results for this PM [employer] procedure are in the results section. B-TYPE NATRIURETIC Routine 11/02/2018 4:06 Results for this FACTOR (BNP) PM [employer] procedure are in the results section. TROPONIN I STAT 11/02/2018 4:06 Results for this PM [employer] procedure are in the results section. TSH/FREE T4 IF Routine 11/02/2018 4:06 Results for this INDICATED PM [employer] procedure are in the results section. MAGNESIUM Routine 11/02/2018 4:06 Results for this PM [employer] procedure are in the results section. COMPREHENSIVE Routine 11/02/2018 4:06 Results for this METABOLIC PANEL PM [employer] procedure are in the results section. L CATH & PCI 11/02/2018 4:00 Non-STEMI (non-ST PM [employer] elevated myocardial infarction) (HCC) ECG 12-LEAD Routine 11/02/2018 3:21 PM [employer] Procedure Note - Interface, External Ris In - 11/02/2018 3:29 PM [employer] Ventricular Rate 57 BPM Atrial Rate 57 BPM P-R Interval 172 ms QRS Duration 86 ms Q-T Interval 504 ms QTC Calculation(Bazett) 490 ms P [place] 51 degrees R [place] 50 degrees T [place] [address] & T wave abnormality, consider inferior ischemia ST & T wave abnormality, consider anterolateral ischemia Prolonged QT Abnormal ECG No previous ECGs available ECG 12-LEAD STAT 11/02/2018 3:21 PM [employer] after 03/09/2018 Results VASCULAR DIAGRAM -SCAN (12/31/2018 4:41 PM [employer])Only the most recent of3 resultswithin the time period is included. Narrative Performed At RHYTHM STRIP - SCAN (11/20/2018 3:20 PM [employer]) Narrative Performed At CARDIAC CATH REPORT - SCAN (11/20/2018 3:20 PM [employer]) Narrative Performed At CARDIAC CATH REPORT - SCAN (11/13/2018 5:41 PM [employer]) Narrative Performed At CBC with platelet count + automated diff (11/05/2018 12:17 PM [employer])Only the most recent of4 resultswithin the time period is included. WBC 11.4 (H) 3.5 - 10.5 K/L [facility] RBC 3.20 (L) 3.93 - 5.22 M/L [facility] Hemoglobin 9.8 (L) 11.2 - 15.7 GM/DL [facility] Hematocrit 31.1 (L) 34.1 - 44.9 % [facility] MCV 97.2 (H) 79.4 - 94.8 fL [facility] MCH 30.6 25.6 - 32.2 pg [facility] MCHC 31.5 (L) 32.2 - 35.5 GM/DL [facility] RDW 14.9 (H) 11.7 - 14.4 % [facility] Platelets 410 150 - 450 K/CU MM [facility] MPV 9.9 9.4 - 12.3 fL [facility] nRBC 0 0 - 0 /100 WBC [facility] % Neutros 83 % [facility] % Lymphs 10 % [facility] % Monos 5 % [facility] % Eos 1 % [facility] % Baso 0 % [facility] # Neutros 9.42 (H) 1.56 - 6.13 K/L [facility] # Lymphs 1.14 (L) 1.18 - 3.74 K/L [facility] # Monos 0.62 (H) 0.24 - 0.36 K/L [facility] # Eos 0.09 0.04 - 0.36 K/L [facility] # Baso 0.03 0.01 - 0.08 K/L [facility] Immature Granulocytes-Relative 1 0 - 1 % [facility] Specimen Blood Performing Organization Address City/State/Zipcode Phone Number [facility] [address] [place] [address] CENTER ECHOCARDIOGRAM REPORT - SCAN (11/04/2018 9:30 AM [employer]) Narrative Performed At Prothrombin time/INR (11/04/2018 9:08 AM [employer])Only the most recent of2 resultswithin the time period is included. Protime 14.8 (H) 11.7 - 14.7 seconds [facility] INR 1.2 <=5.9 [facility] Specimen Blood Narrative Performed At RECOMMENDED COUMADIN/WARFARIN INR THERAPY [facility] RANGES STANDARD DOSE: 2.0 - 3.0 Includes: PROPHYLAXIS for venous thrombosis, systemic embolization; TREATMENT for venous thrombosis and/or pulmonary embolus. HIGH RISK: Target INR is 2.5-3.5 for patients with mechanical heart valves. Performing Organization Address City/State/[facility] Phone Number [facility] [address] [place] [address] CENTER TRANSFUSION SERVICE REPORT - SCAN (11/03/2018 6:00 PM [employer]) Narrative Performed At ECG 12 lead (11/03/2018 1:13 PM [employer])Only the most recent of2 resultswithin the time period is included. Specimen Narrative Performed At Ventricular Rate 69 BPM GE MUSE Atrial Rate 69 BPM P-R Interval 174 ms QRS Duration 88 ms Q-T Interval 454 ms QTC Calculation(Bazett) 486 ms P [place] 59 degrees R [place] 58 degrees T [place] 252 degrees Normal sinus rhythm ST & Marked T wave abnormality, consider anterolateral ischemia Prolonged QT Abnormal ECG When compared with ECG of 02-NOV-2018 15:21, No significant change was found Confirmed by MD BERNARDO JOSEPH P ([id number]) on 11/04/2018 6:58:00 AM Procedure Note Interface, External Ris In - 11/04/2018 6:58 AM [employer] Ventricular Rate 69 BPM Atrial Rate 69 BPM P-R Interval 174 ms QRS Duration 88 ms Q-T Interval 454 ms QTC Calculation(Bazett) 486 ms P [place] 59 degrees R [place] 58 degrees T [place] 252 degrees Normal sinus rhythm ST & Marked T wave abnormality, consider anterolateral ischemia Prolonged QT Abnormal ECG When compared with ECG of 02-NOV-2018 15:21, No significant change was found Confirmed by MD BERNARDO JOSEPH P ([id number]) on 11/04/2018 6:58:00 AM Performing Organization Address [facility] Center[facility] Phone Number [employer] Transthoracic 2D echo w/ doppler (cw/pw/color) (11/03/2018 11:20 AM [employer]) Ejection Fraction [facility] Specimen Narrative Performed At Transthoracic Echocardiography Report (TTE) [facility] Demographics Patient NameGLENN, LOLA Date of Study11/03/2018 MOUNIKA Gender Female Visit [id number] Race Unknown [id number] Number Date of 1960 Steven Akins Physician Age 58 year(s) SonographerJane Velazquez RDCS [employer] Workerfrancesca Thomas Interpreting Herminia May, PhysicianMD Procedure Type of Study TTE procedure:2DECHO W DOPPLER(CW/PW/COLOR) (Pending Discharge) Indications:Evaluation of LV Function Post AMI. Clinical History NSTEMI, Hyperlipidemia, Shortness of breath, Chest pain, Abnormal EKG, Elevated troponin HGB 11.7 HCT 37.9 % Height: 61 inches Weight: 49.44 kg (109 lbs) BSA: 1.46 m^2 BMI: 20.6 kg/m^2 HR: 72 bpm BP: 105/56 mmHg Summary 1. The following segment(s) appear hypokinetic: apical anterior . The other segments contract normally. LVEF by Colin's method of disk assessment is normal (55-60%) . 2. Grade 1 diastolic dysfunction (impaired relaxation and low-normal LA pressure) 3. Estimated peak systolic PA pressure is 20-25 mmHg Previous Study No prior exam available for comparison. Signature Findings Technical Quality: Technically adequate exam. Left Ventricle The left ventricle is chamber size (by PSLAX di mension) is normal (female - LVIDd 3.8-5.2cm) . No rmal LV wall thickness. The following segment(s) ap pear hypokinetic: apical anterior . The other se gments contract normally. LVEF by Colin's me thod of disk assessment is normal (55-60%) . The LV EF was measured using Colin's bi-plane method of disk . Grade 1 diastolic dysfunction (impaired re laxation and low-normal LA pressure). Normal (c ardiac index 2-3 L/min/m2) cardiac output state at rest is noted. Left AtriumLA size is normal (16-34 ml/m2) . Right VentricleThe right ventricular chamber size and systolic fu nction are within normal limits. Right Atrium RA cavity size is normal . Aortic Valve Mild AoV cusp thickening. Ao V cusp mobility is normal . No evidence of aortic stenosis. Mitral Valve Mild MV leaflet thickening. Tricuspid ValveA trace of tricuspid regurgitation. Es timated peak systolic PA pressure is 20-25 mmHg . Pulmonic Valve Normal PV structure and function by limited views an d Doppler. AortaAortic root size (SInus of Valsalva diameter) is no rmal . PericardiumNo significant pericardial effusion is visualized. IVC/SVC/PA/PV/PleuralThe right upper pulmonary vein (RUPV) is normal . Th e estimated RA pressure by IVC dynamics 0-5mmHg . Chambers/Structures Left Atrium LA Volume: 28.22 ml LA Area: 12.84 cm^2 LA Vol. Index: 19 ml/m^2 Left Ventricle LVIDd: 4.48 cm LV Septum Diastolic: 0.85 cm LV PW Diastolic: 0.83 cm LVEDV Colin's:78.34 ml LVESV Colin's:31.68 ml LVEF Colin's: 59.6 %LVEDV I: 54 ml/m^2 LVESVI: 22 ml/m^2 LVOT Diameter: 1.98 cm Right Atrium RA Vol. (Sngl Plane): 23.47 ml Right Ventricle TAPSE: 1.76 cm Aorta Ao Root S of Janell.: 2.88 cm Doppler/Quantitative Measurements Mitral Valve MV Peak E-Wave: 0.47 m/sMV Peak A-Wave: 0.61 m/s E/A Ratio: 0.78 Peak Gradient: 0.9 mmHg Deceleration Time: 246.6 msec MV Bertrand. Peak: Tissue Doppler E' Lateral Velocity: 0.09 m/s E/E': 5.33 Aortic Valve Peak Velocity: 1.13 m/sMean Velocity: 0.83 m/s Peak Gradient: 5.1 mmHgMean Gradient: 3.04 mmHg AV Area (continuity): 2.51 cm^2 AV VTI: 22.35 cm AV DVI: 0.82 LVOT Peak Velocity: 0.94 m/s Peak Gradient: 3.62 mmHg Mean Velocity: 0.68 m/s Mean Gradient: 2.11 mmHg LVOT Diameter: 1.98 cmLVOT VTI: 18.23 cm LVOT Area: 3.08 cm^2LVOT SV:56.1 ml LVOT CO: 4.04 l/min LVOT CI: 2.77 l/min/m^2 Tricuspid Valve TR Velocity: 2.18 m/s TR Gradient: 19.02 mmHg Procedure Note Interface, External Ris In - 11/04/2018 8:39 AM [employer] Transthoracic Echocardiography Report (TTE) Demographics Patient Name LOLA OSCAR Date of Study 11/03/2018 MOUNIKA Gender Female Visit Number [id number] Race Unknown Room Number C620 Number Date of 1960 Referring Georges Akins Physician Age 58 year(s) [employer] Jane Velazquez, [facility] Vegetable Harvest Worker Brigida Thomas Interpreting Physician JHONATAN Roth Procedure Type of Study TTE procedure:2DECHO W DOPPLER(CW/PW/COLOR) (Pending Discharge) Indications:Evaluation of LV Function Post AMI. Clinical History NSTEMI, Hyperlipidemia, Shortness of breath, Chest pain, Abnormal EKG, Elevated troponin HGB 11.7 HCT 37.9 % Height: 61 inches Weight: 49.44 kg (109 lbs) BSA: 1.46 m^2 BMI: 20.6 kg/m^2 HR: 72 bpm BP: 105/56 mmHg Summary 1. The following segment(s) appear hypokinetic: apical anterior . The other segments contract normally. LVEF by Colin's method of disk assessment is normal (55-60%) . 2. Grade 1 diastolic dysfunction (impaired relaxation and low-normal LA pressure) 3. Estimated peak systolic PA pressure is 20-25 mmHg Previous Study No prior exam available for comparison. Signature Findings Technical Quality: Technically adequate exam. Left Ventricle The left ventricle is chamber size (by PSLAX dimension) is normal (female - LVIDd 3.8-5.2cm) . Normal LV wall thickness. The following segment(s) appear hypokinetic: apical anterior . The other segments contract normally. LVEF by Colin's method of disk assessment is normal (55-60%) . The LVEF was measured using Colin's bi-plane method of disk . Grade 1 diastolic dysfunction (impaired relaxation and low-normal LA pressure). Normal (cardiac index 2-3 L/min/m2) cardiac output state at rest is noted. Left Atrium LA size is normal (16-34 ml/m2) . Right Ventricle The right ventricular chamber size and systolic function are within normal limits. Right Atrium RA cavity size is normal . Aortic Valve Mild AoV cusp thickening. AoV cusp mobility is normal . No evidence of aortic stenosis. Mitral Valve Mild MV leaflet thickening. Tricuspid Valve A trace of tricuspid regurgitation. Estimated peak systolic PA pressure is 20-25 mmHg . Pulmonic Valve Normal PV structure and function by limited views and Doppler. Aorta Aortic root size (SInus of Valsalva diameter) is normal . Pericardium No significant pericardial effusion is visualized. IVC/SVC/PA/PV/Pleural The right upper pulmonary vein (RUPV) is normal . The estimated RA pressure by IVC dynamics 0-5mmHg . Chambers/Structures Left Atrium LA Volume: 28.22 ml LA Area: 12.84 cm^2 LA Vol. Index: 19 ml/m^2 Left Ventricle LVIDd: 4.48 cm LV Septum Diastolic: 0.85 cm LV PW Diastolic: 0.83 cm LVEDV Colin's:78.34 ml LVESV Colin's:31.68 ml LVEF Colin's: 59.6 % LVEDVI: 54 ml/m^2 LVESVI: 22 ml/m^2 LVOT Diameter: 1.98 cm Right Atrium RA Vol. (Sngl Plane): 23.47 ml Right Ventricle TAPSE: 1.76 cm Aorta Ao Root S of Janell.: 2.88 cm Doppler/Quantitative Measurements Mitral Valve MV Peak E-Wave: 0.47 m/s MV Peak A-Wave: 0.61 m/s E/A Ratio: 0.78 Peak Gradient: 0.9 mmHg Deceleration Time: 246.6 msec MV Bertrand. Peak: Tissue Doppler E' Lateral Velocity: 0.09 m/s E/E': 5.33 Aortic Valve Peak Velocity: 1.13 m/s Mean Velocity: 0.83 m/s Peak Gradient: 5.1 mmHg Mean Gradient: 3.04 mmHg AV Area (continuity): 2.51 cm^2 AV VTI: 22.35 cm AV DVI: 0.82 LVOT Peak Velocity: 0.94 m/s Peak Gradient: 3.62 mmHg Mean Velocity: 0.68 m/s Mean Gradient: 2.11 mmHg LVOT Diameter: 1.98 cm LVOT VTI: 18.23 cm LVOT Area: 3.08 cm^2 LVOT SV:56.1 ml LVOT CO: 4.04 l/min LVOT CI: 2.77 l/min/m^2 Tricuspid Valve TR Velocity: 2.18 m/s TR Gradient: 19.02 mmHg Performing Organization Address City/State/Zipcode Phone Number [facility] Arterial doppler leg, right (11/03/2018 10:44 AM [employer]) Ejection Fraction [facility] Specimen Impressions Performed At Right Impression [facility] 1. 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 with the following dimensions 4.5 cm x 2.1 cm x 4.2 cm with partial thrombus. 2. There is no hematoma visualized. 3. There is no venous obstruction or arteriovenous fistula visualized. 4. The common femoral artery flow is triphasic with a velocity of 162 cm/sec. (within normal range). Left Impression Not ordered. Conclusions Summary Duplex imaging of the right groin area was performed. The vessels were adequately visualized. There was no evidence of a venous obstruction or arteriovenous fistula in the right groin area. There was a pseudoaneurysm with partial thrombus. Signature Velocities are measured in cm/s ; Diameters are measured in cm Narrative Performed At PV LAB - Pseudoaneurysm Survey [facility] MKCKESSON [facility] Demographics Patient Name LOLA OSCAR Date of Study 11/03/2018 MOUNIKA [id number] Age 58 Visit Number [id number] GenderFemale Accession Number [id number] Date of 1960 Steven ISRAEL CamakRoom Number 1439 Physician SonographGeorge Stephenson.InterpretingElisa Carmen RVT, ARS Physician Procedure Type of Study: Pseudoaneurysm: PSEUDOANEURYSM, GROIN DOPPLER RIGHT. Indications for Study:Pseudoaneurysm. Patient Status:Routine. Study Location:Vascular Lab. Technical Quality:Adequate visualization. - Results were reported to:Georges on 11/03/2018 at 10:50.. Risk Factors History of Disease + + + + !Diagnosis !Date !Comments ! + + + + !Other ! !hld! + + + + Procedure Note Interface, External Ris In - 11/03/2018 2:06 PM [employer] PV LAB - Pseudoaneurysm Survey Demographics Patient Name LOLA OSCAR Date of Study 11/03/2018 MOUNIKA Age 58 Visit Number [id number] Gender Female Accession Number [id number] Date of 1960 Referring Georges Akins Room Number 1430 Physician [employer] Jason Stephenson. Interpreting Elisa Carmen, RVT, ARDMS Physician Procedure Type of Study: Pseudoaneurysm: PSEUDOANEURYSM, GROIN DOPPLER RIGHT. Indications for Study:Pseudoaneurysm. Patient Status:Routine. Study Location:Vascular Lab. Technical Quality:Adequate visualization. - Results were reported to:Georges on 11/03/2018 at 10:50.. Risk Factors History of Disease + + + + !Diagnosis !Date !Comments ! + + + + !Other ! !hld ! + + + + Impressions Right Impression 1. 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 with the following dimensions 4.5 cm x 2.1 cm x 4.2 cm with partial thrombus. 2. There is no hematoma visualized. 3. There is no venous obstruction or arteriovenous fistula visualized. 4. The common femoral artery flow is triphasic with a velocity of 162 cm/sec. (within normal range). Left Impression Not ordered. Conclusions Summary Duplex imaging of the right groin area was performed. The vessels were adequately visualized. There was no evidence of a venous obstruction or arteriovenous fistula in the right groin area. There was a pseudoaneurysm with partial thrombus. Signature Velocities are measured in cm/s ; Diameters are measured in cm Performing Organization Address City/[facility] Cent[facility] Phone Number [facility] MK[facility] CP[facility] Troponin I (11/03/2018 4:24 AM [employer])Only the most recent of3 resultswithin the time period is included. Troponin I 0.06 (H) 0.00 - 0.03 ng/mL [facility] Specimen Blood Narrative Performed At Troponin I (TnI) levels must be interpreted [facility] in the context of the presenting symptoms and the clinical findings. Elevated TnI levels indicate myocardial damage, but are not specific for ischemic heart disease. Elevated TnI levels are seen in patients with other cardiac conditions (including myocarditis and congestive heart failure), and slight TnI elevations occur in patients with other conditions, including sepsis, renal failure, acidosis, acute neurological disease, and persistent tachyarrhythmia. Performing Organization Address City/State/Zipcode Phone Number [facility] [address] [place] [address] CENTER Magnesium (11/03/2018 4:24 AM [employer])Only the most recent of2 resultswithin the time period is included. Magnesium 1.9 1.6 - 2.6 mg/dL [facility] Specimen Blood Performing Organization Address City/[facility] Centercode Phone Number [address] [address] [place] Basic Metabolic Panel (11/03/2018 4:24 AM [employer]) Sodium 141 136 - 145 meq/L [facility] Potassium 4.0 3.5 - 5.1 meq/L [facility] Chloride 111 (H) 98 - 107 meq/L [facility] CO2 24 22 - 29 meq/L [facility] BUN 11 7 - 21 mg/dL [facility] Creatinine 0.66 0.57 - 1.25 mg/dL [facility] Glucose 91 70 - 105 mg/dL [facility] Calcium 8.8 8.4 - 10.2 mg/dL [facility] EGFR 92Comment: ESTIMATED GFR IS mL/min/1.73 sq m [facility] NOT ACCURATE CREATININE [facility] CENTER CLEARANCE IN PREDICTING GLOMERULAR FILTRATION RATE. ESTIMATED GFR IS NOT APPLICABLE FOR DIALYSIS PATIENTS. Specimen Blood Performing Organization Address [facility] Centercode Phone Number [address] [address] [phone] CENTER POC ACTIVATED CLOTTING TIME (11/02/2018 11:38 PM [employer])Only the most recent of5 resultswithin the time period is included. Activated Clotting Time 142Comment: TESTED AT sec [facility] [address] [place] [id number] Specimen Blood Performing Organization Address City/[facility]/Zipcode Phone Number [address] [address] CENTER Type and screen, automated (11/02/2018 4:06 PM [employer]) ABO/RH AUTOMATED (BEAKER) O NEGATIVE [facility] Ab Scrn NEGATIVE [facility] Specimen Blood Performing Organization Address City/[facility] Centercode Phone Number [address] [address] TSH/T4 if indicated (11/02/2018 4:06 PM [employer]) TSH 1.01 0.35 - 4.94 uIU/mL [facility] Specimen Blood Performing Organization Address City/[facility] Centercoal Phone Number [address] [address] CENTER aPTT (11/02/2018 4:06 PM [employer]) PTT 35.6 22.5 - 36.0 seconds [facility] Specimen Blood Performing Organization Address City/[facility]coal Phone Number [address] [address] [place] B-type natriuretic peptide (11/02/2018 4:06 PM [employer]) BNP 92 0 - 100 pg/mL [facility] Specimen Blood Performing Organization Address [facility] Center[facility] Phone Number [address] [address] [phone] [place] Hemoglobin A1c (11/02/2018 4:06 PM [employer]) Hemoglobin A1C 5.9 4.3 - 6.1 % [facility] Specimen Blood Performing Organization Address [facility] Centercode Phone Number [address] [address] CENTER Lipid panel (11/02/2018 4:06 PM [employer]) Triglycerides 96 mg/dL [facility] Cholesterol 188 mg/dL [facility] HDL 53 mg/dL [facility] LDL Calculated 116 mg/dL [facility] Specimen Blood Narrative Performed At Triglyceride Reference Range: [facility] Low Risk <150 [id number] High Risk 200-499 Very High Risk>=500 Cholesterol Reference Range: Low Risk <200 [id number] High Risk>240 HDL Cholesterol Reference Range: Low Risk >=60 High Risk <40 LDL Cholesterol Reference Range: Optimal<100 Near [id number] Very High >=190 Performing Organization Address City/State/Zipcode Phone Number [facility] [address] [place] [address] CENTER Comprehensive metabolic panel (11/02/2018 4:06 PM [employer]) Protein, Total 6.7 6.0 - 8.3 gm/dL [facility] Albumin 4.0 3.5 - 5.0 g/dL [facility] Alkaline Phosphatase 23 (L) 40 - 150 U/L [facility] Total Bilirubin 0.6 0.2 - 1.2 mg/dL [facility] Sodium 141 136 - 145 meq/L [facility] Potassium 3.8 3.5 - 5.1 meq/L [facility] Chloride 106 98 - 107 meq/L [facility] CO2 28 22 - 29 meq/L [facility] BUN 11 7 - 21 mg/dL [facility] Creatinine 0.68 0.57 - 1.25 mg/dL [facility] Glucose 87 70 - 105 mg/dL [facility] Calcium 9.3 8.4 - 10.2 mg/dL [facility] AST 18 5 - 34 U/L [facility] ALT <6 (L) 6 - 55 U/L [facility] EGFR 89Comment: ESTIMATED GFR mL/min/1.73 sq m IS NOT ACCURATE [facility] CREATININE CLEARANCE IN PREDICTING GLOMERULAR FILTRATION RATE. ESTIMATED GFR IS NOT APPLICABLE FOR DIALYSIS PATIENTS. Specimen Blood Performing Organization Address City/State/Zipcode Phone Number [facility] [address] [place] [address] CENTER after 03/09/2018 Insurance Payer Benefit Plan / Group Subscriber ID Type Phone Address [employer] - [employer] C[employer] HMO/POS/OPEN ACCESS xxxxxxxxxxx HMO/POS Advance Directives For more information, please contact:[address] [phone] Code Status Date Activated Date Inactivated Comments Full Code 11/02/2018 2:51 PM This code status was determined by: Patient
--- OUTSIDE RECORDS SUMMARY | 2019-03-10 18:24 | XMS REPORT | Continuity of Care Document ---
:1960 Author Organization Interface Problems Problem Status Onset Classification Date Comments Source Date Reported INCISIONAL Active [facility] HERNIA [facility] Crohn's Active Problem 09/23/2016 [facility] disease [facility] Hernia, Active Problem 09/23/2016 [facility] incisional [facility] Medications Medication Details Route Status Patient Ordering Order Source Instructions Provider Date Hydromorphone 0.5 mg, Route: Inactive 09/21[facility] Radha IVP, Q5Min, 2015 Medical Dosing Weight Center 51.364, kg, PRN Pain Score 7-10, Start date: 09/20/16 18:30:00 [employer], Duration: 4 doses or times, Stop date: Limited # of times Flumazenil 0.2 mg, Route: Inactive 09/21[facility] Radha IVP, PRN, Dosing 2015 Medical Weight 51.364, Center kg, PRN Benzodiazepine Reversal, Initial dose, Start date: 09/20/16 18:30:00 [employer], Duration: 30 day, Stop date: 10/20/16 18:29:00 [employer] Albuterol 0.83 2.49 mg, Route: Inactive 09/21[facility] Radha MG/ML Inhalant NEB, Q20Min, 2015 Medical Solution Dosing Weight Center 51.364, kg, PRN Wheezing, Priority: STAT, Start date: 09/20/16 18:30:00 [employer], Duration: 30 day, Stop date: 10/20/16 18:29:00 [employer] Naloxone 0.4 mg, Route: Inactive 09/21[facility] Radha IVP, Q2MIN, 2015 Medical Dosing Weight Center 51.364, kg, PRN Narcotic Reversal, Start date: 09/20/16 18:30:00 [employer], Duration: 8 doses or times, Stop date: Limited # of times Promethazine 6.25 mg, Route: Inactive 09/21[facility] Radha IVPB, ONCE, 2015 Medical Dosing Weight Center 51.364, kg, PRN Nausea & Vomiting, Start date: 09/20/16 18:30:00 [employer] Ondansetron 4 mg, Route: Inactive [facility] IVP, ONCE, 2016 Medical Dosing Weight Center 51.364, kg, PRN Nausea & Vomiting, Start date: 09/20/16 18:30:00 [employer] Oxycodone 5 mg, Route: PO, Inactive [facility] Drug form: TAB, 2016 Medical Q4H, Dosing Center Weight 51.364, kg, PRN Pain Score 4-6, Start date: 09/20/16 18:30:00 [employer], Duration: 30 day, Stop date: 10/20/16 18:29:00 [employer] Hydralazine 10 mg, Route: Inactive [facility] IVP, Q20Min, 2016 Medical Dosing Weight Center 51.364, kg, PRN Elevated BP, Start date: 09/20/16 18:30:00 [employer], Duration: 2 doses or times, Stop date: Limited # of times Sodium Chloride 500 mL, Infuse Inactive [facility] 0.154 MEQ/ML Over: 20 2015 Medical Injectable minutes, Route: Center Solution IV, ONCE, Dosing Weight 51.364 kg, Start date: 09/20/16 18:30:00 [employer], Stop date: 09/20/16 18:30:00 [employer] Acetaminophen 325 2 tab, PO, Q4H, Active [facility] MG / Hydrocodone PRN Pain Score 2016 Medical Bitartrate 5 MG 4-6, 0 Refill(s) Center Oral Tablet [Orient 5/325] Acetaminophen 325 2 tab, Route: No Longer [place] MG / Hydrocodone PO, Drug Form: Active 2016 Medical Bitartrate 5 MG TAB, Dosing Center Oral Tablet Weight 51.364, [Orient 5/325] kg, Q4H, PRN Pain Score 4-6, Start date: 09/20/16 17:58:00 [employer], Duration: 30 day, Stop date: 10/20/16 17:57:00 [employer] Zofran 4 mg, 2 mL, Inactive [facility] Route: IVP, Drug 2016 Medical form: INJ, ONCE, Center Dosing Weight 51.364, kg, Start date: 09/20/16 17:58:00 [employer], Stop date: 09/20/16 17:58:00 CSTNotes: (Same as: Zofran) MEDICATION WASTE Product Size: 4 mg Product Wasted: ___ mg Acetaminophen 325 1 tab, Route: No Longer Radha MG / Hydrocodone PO, Drug Form: Active 2015 Medical Bitartrate 5 MG TAB, Dosing Center Oral Tablet Weight 51.364, [Orient 5/325] kg, Q4H, PRN Pain Score 1-3, Start date: 09/20/16 17:57:00 [employer], Duration: 30 day, Stop date: 10/20/16 17:56:00 [employer] bupivacaine 20 mL, Route: No Longer [place] liposome InFILtration(loc Active 2015 Medical al), Drug Form: Center INJ, ONCALL, Start date: 09/20/16 16:00:00 [employer], Duration: 1 doses or timesNotes: (Same as: [...] [266 mg]) vancomycin 1 gm, Route: Inactive [place] IVPB, Drug form: 2015 Medical INJ, PRE OP, Center Priority: NOW, Start date: 09/20/16 14:44:00 [employer], Duration: 1 doses or times, Stop date: [...] [Dexilant] Dexilant PO, Daily, 0 Active 09/16/ [facility] Refill(s) [address] [place] [address] Pentasa 1,000 mg, PO, Active [facility] QID, 0 Refill(s) [address] [place] [address] Imuran Daily, 0 Active [facility] Refill(s) [address] [place] [address] Allergies, Adverse Reactions, Alerts Substance Category Reaction Severity Reaction Status Date Comments Source type Reported penicillins Assertion Drug Active [facility] Immunizations Immunization Date Given Site Status Last Updated Comments Source Results Order Name Results Value Reference Date Interpretation Comments Source Range BLOOD BANK Antibody Negative [facility] RESULTS Scrn 2016 [facility] (09/20/16 2:30 PM) [place] BLOOD BANK ABO/Rh O NEG [facility] RESULTS [address] [place] [address] Vital Signs Vital Sign Value Date Comments Source Respitory Rate 12 09/21/2016 [facility] Systolic (mm Hg) 125 09/21/2016 [facility] Diastolic (mm Hg) 58 09/21/2016 [facility] Respitory Rate 15 09/21/2016 [facility] Systolic (mm Hg) 119 09/21/2016 [facility] Diastolic (mm Hg) 57 09/21/2016 [facility] Systolic (mm Hg) 118 09/21/2016 [facility] Diastolic (mm Hg) 57 09/21/2016 [facility] Respitory Rate 12 09/21/2016 [facility] Heart Rate 62 09/20/2016 [facility] Heart Rate 65 09/16/2016 [facility] Height 154.94 cm 09/16/2016 [facility] Weight 51.364 09/16/2016 [facility] BMI Calculated 21.4 09/16/2016 [facility] Encounters Location Location Encounter Encounter Reason Attending ADM DC Status Source Details Type Number For Provider Date Date Visit [id number] Kostas Leon 09/20 09/21 [facility] [place] [facility] [place] /2015 [facility] Procedures Procedure Code Date Perfomer Comments Source Resection<sup>1< [id number] of the colon [facility] /sup> 11/[address] [place] [address]
--- OUTSIDE RECORDS SUMMARY | 2019-03-10 18:24 | XMS REPORT ---
:1960 [facility] Prasanna Foote [address] [place] [id number] Care Team Providers Name Role Phone YUNI BIANCHI Unavailable Unavailable Problems This patient has no known problems. Allergies, Adverse Reactions, Alerts This patient has no known allergies or adverse reactions. Medications This patient has no known medications. Results Test Description Test Time Test Comments Text Results Atomic Results Result Comments CBC W/PLT COUNT & AUTO DIFFERENTIAL 2018-11-05 12:28:00 Test Item Value Reference Range Comments WHITE BLOOD CELL COUNT (BEAKER) (test pmyu=168) 11.4 K/ L 3.5-10.5 RED BLOOD CELL COUNT (BEAKER) (test resw=219) 3.20 M/ L 3.93-5.22 HEMOGLOBIN (BEAKER) (test eabj=599) 9.8 GM/DL 11.2-15.7 HEMATOCRIT (BEAKER) (test fhzs=584) 31.1 % 34.1-44.9 MEAN CORPUSCULAR VOLUME (BEAKER) (test fuoa=935) 97.2 fL 79.4-94.8 MEAN CORPUSCULAR HEMOGLOBIN (BEAKER) (test udvb=948) 30.6 pg 25.6-32.2 MEAN CORPUSCULAR HEMOGLOBIN CONC (BEAKER) (test siub=519) 31.5 GM/DL 32.2- 35.5 RED CELL DISTRIBUTION WIDTH (BEAKER) (test qezc=838) 14.9 % 11.7-14.4 PLATELET COUNT (BEAKER) (test dygw=191) 410 K/CU MM 150-450 MEAN PLATELET VOLUME (BEAKER) (test aejt=371) 9.9 fL 9.4-12.3 NUCLEATED RED BLOOD CELLS (BEAKER) (test fwxd=952) 0 /100 WBC 0-0 NEUTROPHILS RELATIVE PERCENT (BEAKER) (test zkcu=496) 83 % LYMPHOCYTES RELATIVE PERCENT (BEAKER) (test bkma=498) 10 % MONOCYTES RELATIVE PERCENT (BEAKER) (test cbpg=216) 5 % EOSINOPHILS RELATIVE PERCENT (BEAKER) (test tzub=620) 1 % BASOPHILS RELATIVE PERCENT (BEAKER) (test lnzr=849) 0 % NEUTROPHILS ABSOLUTE COUNT (BEAKER) (test jfdu=820) 9.42 K/ L 1.56-6.13 LYMPHOCYTES ABSOLUTE COUNT (BEAKER) (test cciu=841) 1.14 K/ L 1.18-3.74 MONOCYTES ABSOLUTE COUNT (BEAKER) (test uedm=320) 0.62 K/ L 0.24-0.36 EOSINOPHILS ABSOLUTE COUNT (BEAKER) (test ueuz=948) 0.09 K/ L 0.04-0.36 BASOPHILS ABSOLUTE COUNT (BEAKER) (test gedo=277) 0.03 K/ L 0.01-0.08 IMMATURE GRANULOCYTES-RELATIVE PERCENT (BEAKER) (test 1 % 0-1 kori=2910) PROTHROMBIN TIME/[id number] 09:30:00 Test Item Value Reference Range Comments PROTIME (BEAKER) (test zqbv=777) 14.8 seconds 11.7-14.7 INR (BEAKER) (test xysd=397) 1.2 <=5.9 RECOMMENDED COUMADIN/WARFARIN INR THERAPY RANGESSTANDARD DOSE: 2.0 - 3.0 Includes: PROPHYLAXIS forvenous thrombosis, systemic embolization; TREATMENT for venous thrombosis and/or pulmonary embolus.HIGH RISK: Target INR is 2.5-3.5 for patients with mechanical heart valves.CBC W/PLT COUNT & AUTO [id number] 05:58:00 Test Item Value Reference Range Comments WHITE BLOOD CELL COUNT (BEAKER) (test jjpc=223) 12.4 K/ L 3.5-10.5 RED BLOOD CELL COUNT (BEAKER) (test dkwj=282) 3.11 M/ L 3.93-5.22 HEMOGLOBIN (BEAKER) (test yaoq=969) 9.3 GM/DL 11.2-15.7 HEMATOCRIT (BEAKER) (test pjhg=182) 29.6 % 34.1-44.9 MEAN CORPUSCULAR VOLUME (BEAKER) (test snze=924) 95.2 fL 79.4-94.8 MEAN CORPUSCULAR HEMOGLOBIN (BEAKER) (test 29.9 pg 25.6-32.2 vypx=669) MEAN CORPUSCULAR HEMOGLOBIN CONC (BEAKER) (test 31.4 GM/DL 32.2-35.5 nirh=621) RED CELL DISTRIBUTION WIDTH (BEAKER) (test 14.9 % 11.7-14.4 rdqb=282) PLATELET COUNT (BEAKER) (test yqdh=465) 324 K/CU MM 150-450 MEAN PLATELET VOLUME (BEAKER) (test yqpt=072) 9.6 fL 9.4-12.3 NUCLEATED RED BLOOD CELLS (BEAKER) (test 0 /100 WBC 0-0 hcrn=787) NEUTROPHILS RELATIVE PERCENT (BEAKER) (test 90 % ozxw=389) LYMPHOCYTES RELATIVE PERCENT (BEAKER) (test 5 % xdmf=497) MONOCYTES RELATIVE PERCENT (BEAKER) (test 4 % fxwr=532) EOSINOPHILS RELATIVE PERCENT (BEAKER) (test 0 % imnw=208) BASOPHILS RELATIVE PERCENT (BEAKER) (test 0 % iawl=426) NEUTROPHILS ABSOLUTE COUNT (BEAKER) (test 11.22 K/ L 1.56-6.13 yhce=292) LYMPHOCYTES ABSOLUTE COUNT (BEAKER) (test 0.60 K/ L 1.18-3.74 cjis=287) MONOCYTES ABSOLUTE COUNT (BEAKER) (test 0.51 K/ L 0.24-0.36 nqef=005) EOSINOPHILS ABSOLUTE COUNT (BEAKER) (test 0.02 K/ L 0.04-0.36 pfue=644) BASOPHILS ABSOLUTE COUNT (BEAKER) (test 0.02 K/ L 0.01-0.08 qolq=593) IMMATURE GRANULOCYTES-RELATIVE PERCENT (BEAKER) 1 % 0-1 (test coxo=3679) CBC W/PLT COUNT & AUTO [id number] 21:19:00 Test Item Value Reference Range Comments WHITE BLOOD CELL COUNT (BEAKER) (test ezks=670) 8.7 K/ L 3.5-10.5 RED BLOOD CELL COUNT (BEAKER) (test npta=904) 3.21 M/ L 3.93-5.22 HEMOGLOBIN (BEAKER) (test rtpx=943) 9.6 GM/DL 11.2-15.7 HEMATOCRIT (BEAKER) (test epue=270) 31.1 % 34.1-44.9 MEAN CORPUSCULAR VOLUME (BEAKER) (test ofeg=165) 96.9 fL 79.4-94.8 MEAN CORPUSCULAR HEMOGLOBIN (BEAKER) (test 29.9 pg 25.6-32.2 rzel=667) MEAN CORPUSCULAR HEMOGLOBIN CONC (BEAKER) (test 30.9 GM/DL 32.2-35.5 ehbi=584) RED CELL DISTRIBUTION WIDTH (BEAKER) (test 14.7 % 11.7-14.4 qpph=735) PLATELET COUNT (BEAKER) (test jpwq=782) 378 K/CU MM 150-450 MEAN PLATELET VOLUME (BEAKER) (test qtvd=255) 9.7 fL 9.4-12.3 NUCLEATED RED BLOOD CELLS (BEAKER) (test 0 /100 WBC 0-0 eaxa=919) NEUTROPHILS RELATIVE PERCENT (BEAKER) (test 69 % nqyk=122) LYMPHOCYTES RELATIVE PERCENT (BEAKER) (test 19 % gxdl=919) MONOCYTES RELATIVE PERCENT (BEAKER) (test 8 % xslw=724) EOSINOPHILS RELATIVE PERCENT (BEAKER) (test 2 % csza=848) BASOPHILS RELATIVE PERCENT (BEAKER) (test 0 % gkhc=887) NEUTROPHILS ABSOLUTE COUNT (BEAKER) (test 6.03 K/ L 1.56-6.13 nncr=252) LYMPHOCYTES ABSOLUTE COUNT (BEAKER) (test 1.69 K/ L 1.18-3.74 gpwe=399) MONOCYTES ABSOLUTE COUNT (BEAKER) (test 0.72 K/ L 0.24-0.36 reee=353) EOSINOPHILS ABSOLUTE COUNT (BEAKER) (test 0.19 K/ L 0.04-0.36 btsc=855) BASOPHILS ABSOLUTE COUNT (BEAKER) (test 0.02 K/ L 0.01-0.08 aqte=155) IMMATURE GRANULOCYTES-RELATIVE PERCENT (BEAKER) 1 % 0-1 (test znke=9026) HEMOGLOBIN [id number] 07:37:00 Test Item Value Reference Range Comments HEMOGLOBIN A1C (BEAKER) (test ehjn=825) 5.9 % 4.3-6.1 TROPONIN [id number] 05:16:00 Test Item Value Reference Range Comments TROPONIN I (BEAKER) (test jtlr=079) 0.06 ng/mL 0.00-0.03 Troponin I (TnI) levels must be interpreted in the context of the presenting symptoms and the clinical findings. Elevated TnI levels indicate myocardial damage, but are not specific for ischemic heart disease. Elevated TnI levels are seen in patients with other cardiac conditions (including myocarditis and congestive heart failure), and slight TnI elevations occur in patients with other conditions, including sepsis, renal failure, acidosis, acute neurological disease, and persistent tachyarrhythmia.[id number] 05:07:00 Test Item Value Reference Range Comments MAGNESIUM (BEAKER) (test bqdb=752) 1.9 mg/dL 1.6-2.6 BASIC METABOLIC [id number] 05:07:00 Test Item Value Reference Range Comments SODIUM (BEAKER) (test 141 meq/L 136-145 qkli=893) POTASSIUM (BEAKER) (test 4.0 meq/L 3.5-5.1 hven=682) CHLORIDE (BEAKER) (test 111 meq/L 98-107 mcjh=620) CO2 (BEAKER) (test 24 meq/L 22-29 frxd=261) BLOOD UREA NITROGEN 11 mg/dL 7-21 (BEAKER) (test zekc=213) CREATININE (BEAKER) (test 0.66 mg/dL 0.57-1.25 adhq=351) GLUCOSE RANDOM (BEAKER) 91 mg/dL 70-105 (test khci=345) CALCIUM (BEAKER) (test 8.8 mg/dL 8.4-10.2 rwgg=442) EGFR (BEAKER) (test 92 mL/min/1.73 sq m ESTIMATED GFR IS NOT oxet=3355) ACCURATE CREATININE CLEARANCE IN PREDICTING GLOMERULAR FILTRATION RATE. ESTIMATED GFR IS NOT APPLICABLE FOR DIALYSIS PATIENTS. CBC W/PLT COUNT & AUTO [id number] 04:51:00 Test Item Value Reference Range Comments WHITE BLOOD CELL COUNT (BEAKER) (test jafz=434) 7.6 K/ L 3.5-10.5 RED BLOOD CELL COUNT (BEAKER) (test xdsw=799) 3.92 M/ L 3.93-5.22 HEMOGLOBIN (BEAKER) (test scqi=727) 11.7 GM/DL 11.2-15.7 HEMATOCRIT (BEAKER) (test sllg=123) 37.9 % 34.1-44.9 MEAN CORPUSCULAR VOLUME (BEAKER) (test owzp=687) 96.7 fL 79.4-94.8 MEAN CORPUSCULAR HEMOGLOBIN (BEAKER) (test 29.8 pg 25.6-32.2 tajq=492) MEAN CORPUSCULAR HEMOGLOBIN CONC (BEAKER) (test 30.9 GM/DL 32.2-35.5 wdvs=637) RED CELL DISTRIBUTION WIDTH (BEAKER) (test 15.0 % 11.7-14.4 scgy=329) PLATELET COUNT (BEAKER) (test bdbu=398) 415 K/CU MM 150-450 MEAN PLATELET VOLUME (BEAKER) (test jfaq=600) 9.7 fL 9.4-12.3 NUCLEATED RED BLOOD CELLS (BEAKER) (test 0 /100 WBC 0-0 qsxi=942) NEUTROPHILS RELATIVE PERCENT (BEAKER) (test 69 % vwqw=794) LYMPHOCYTES RELATIVE PERCENT (BEAKER) (test 20 % wlcv=929) MONOCYTES RELATIVE PERCENT (BEAKER) (test 7 % sqpj=695) EOSINOPHILS RELATIVE PERCENT (BEAKER) (test 3 % psax=033) BASOPHILS RELATIVE PERCENT (BEAKER) (test 0 % tbmr=635) NEUTROPHILS ABSOLUTE COUNT (BEAKER) (test 5.30 K/ L 1.56-6.13 qujo=611) LYMPHOCYTES ABSOLUTE COUNT (BEAKER) (test 1.54 K/ L 1.18-3.74 ymfc=902) MONOCYTES ABSOLUTE COUNT (BEAKER) (test 0.54 K/ L 0.24-0.36 iamd=966) EOSINOPHILS ABSOLUTE COUNT (BEAKER) (test 0.21 K/ L 0.04-0.36 qrjj=548) BASOPHILS ABSOLUTE COUNT (BEAKER) (test 0.03 K/ L 0.01-0.08 wjdx=855) IMMATURE GRANULOCYTES-RELATIVE PERCENT (BEAKER) 0 % 0-1 (test zmjh=1148) [id number] 23:52:00 Test Item Value Reference Range Comments ACTIVATED CLOTTING TIME 142 sec TESTED AT [address] (BEAKER) (test lfcf=109) [place] [address] [id number] 23:52:00 Test Item Value Reference Range Comments ACTIVATED CLOTTING TIME 147 sec TESTED AT [place] [address] [facility] (BEAKER) (test hmcq=976) [place] [address] [id number] 23:52:00 Test Item Value Reference Range Comments ACTIVATED CLOTTING TIME 164 sec TESTED AT [place] [address] [facility] ([employer]) (test mnlf=130) [place] [address] TROPONIN [id number] 23:03:00 Test Item Value Reference Range Comments TROPONIN I ([facility]) (test lqfi=799) 0.08 ng/mL 0.00-0.03 Troponin I (TnI) levels must be interpreted in the context of the presenting symptoms and the clinical findings. Elevated TnI levels indicate myocardial damage, but are not specific for ischemic heart disease. Elevated TnI levels are seen in patients with other cardiac conditions (including myocarditis and congestive heart failure), and slight TnI elevations occur in patients with other conditions, including sepsis, renal failure, acidosis, acute neurological disease, and persistent tachyarrhythmia.[id number] 17:46:00 Test Item Value Reference Range Comments ACTIVATED CLOTTING TIME 263 sec TESTED AT [address] ([employer]) (test wuyr=754) [place] [address] [id number] 17:46:00 Test Item Value Reference Range Comments ACTIVATED CLOTTING TIME 252 sec TESTED AT [address] ([employer]) (test tvtq=048) [place] [address] TSH/FREE T4 IF [id number] 16:53:00 Test Item Value Reference Range Comments THYROID STIMULATING HORMONE ([employer]) (test 1.01 uIU/mL 0.35-4.94 dlej=427) TROPONIN [id number] 16:39:00 Test Item Value Reference Range Comments TROPONIN I ([facility]) (test urtg=855) 0.06 ng/mL 0.00-0.03 Troponin I (TnI) levels must be interpreted in the context of the presenting symptoms and the clinical findings. Elevated TnI levels indicate myocardial damage, but are not specific for ischemic heart disease. Elevated TnI levels are seen in patients with other cardiac conditions (including myocarditis and congestive heart failure), and slight TnI elevations occur in patients with other conditions, including sepsis, renal failure, acidosis, acute neurological disease, and persistent tachyarrhythmia.B-TYPE NATRIURETIC FACTOR (BNP) 16:39:00 Test Item Value Reference Range Comments B-TYPE NATRIURETIC PEPTIDE ([employer]) (test mbcx=498) 92 pg/mL 0-100 LIPID [id number] 16:33:00 Test Item Value Reference Range Comments TRIGLYCERIDES (BEAKER) (test inqk=771) 96 mg/dL CHOLESTEROL (BEAKER) (test amju=574) 188 mg/dL HDL CHOLESTEROL (BEAKER) (test pcyq=188) 53 mg/dL LDL CHOLESTEROL CALCULATED (BEAKER) (test 116 mg/dL pfmy=647) Triglyceride Reference Range: Low Risk <150 Borderline 150- 199 High Risk 200-499 Very High Risk >=500Cholesterol Reference Range: Low Risk <200 Borderline 200-239 High Risk > 240HDL Cholesterol Reference Range: Low Risk >=60 High Risk <40LDL Cholesterol Reference Range: Optimal <100 Near Optimal 100-129 Borderline 130-159 High 160-189 Very High [id number] 16:33:00 Test Item Value Reference Range Comments MAGNESIUM (BEAKER) (test bept=346) 2.0 mg/dL 1.6-2.6 COMPREHENSIVE METABOLIC [id number] 16:33:00 Test Item Value Reference Range Comments TOTAL PROTEIN (BEAKER) 6.7 gm/dL 6.0-8.3 (test ryez=488) ALBUMIN (BEAKER) (test 4.0 g/dL 3.5-5.0 mtyx=2418) ALKALINE PHOSPHATASE 23 U/L 40-150 (BEAKER) (test gapc=048) BILIRUBIN TOTAL (BEAKER) 0.6 mg/dL 0.2-1.2 (test fogs=621) SODIUM (BEAKER) (test 141 meq/L 136-145 ynvz=261) POTASSIUM (BEAKER) (test 3.8 meq/L 3.5-5.1 jcfn=490) CHLORIDE (BEAKER) (test 106 meq/L 98-107 ipuo=661) CO2 (BEAKER) (test 28 meq/L 22-29 xjtz=021) BLOOD UREA NITROGEN 11 mg/dL 7-21 (BEAKER) (test grfb=707) CREATININE (BEAKER) (test 0.68 mg/dL 0.57-1.25 wzrz=455) GLUCOSE RANDOM (BEAKER) 87 mg/dL 70-105 (test yxxj=126) CALCIUM (BEAKER) (test 9.3 mg/dL 8.4-10.2 xgpv=224) AST (SGOT) (BEAKER) (test 18 U/L 5-34 mtko=913) ALT (SGPT) (BEAKER) (test < U/L 6-55 irar=418) EGFR (BEAKER) (test 89 mL/min/1.73 sq m ESTIMATED GFR IS NOT peer=1298) ACCURATE CREATININE CLEARANCE IN PREDICTING GLOMERULAR FILTRATION RATE. ESTIMATED GFR IS NOT APPLICABLE FOR DIALYSIS PATIENTS. [id number] 16:31:00 Test Item Value Reference Range Comments PARTIAL THROMBOPLASTIN TIME (BEAKER) (test 35.6 seconds 22.5-36.0 qsnu=186) PROTHROMBIN [id number] 16:30:00 Test Item Value Reference Range Comments PROTIME (BEAKER) (test rugg=691) 13.5 seconds 11.7-14.7 INR (BEAKER) (test hcej=335) 1.0 <=5.9 RECOMMENDED COUMADIN/WARFARIN INR THERAPY RANGESSTANDARD DOSE: 2.0 - 3.0 Includes: PROPHYLAXIS forvenous thrombosis, systemic embolization; TREATMENT for venous thrombosis and/or pulmonary embolus.HIGH RISK: Target INR is 2.5-3.5 for patients with mechanical heart valves.
[2019-03-10 19:26] LABS: Absolute Lymphocytes (CBC) 2.3 K/uL (0.7-4.9); Absolute Monocytes 0.6 K/uL (0.1-1.3); Absolute Neutrophil 4.6 K/uL (1.8-8.0); Basophils % 0.8 % (0-1.3); Eosinophils % 4.1 % (0-4.4); Hematocrit 40.9 % (36.0-45.0); Lymphocytes % 28.7 % (15.3-44.8); MPV 7.9 fL (7.6-11.3); Monocytes % 7.5 % (3.3-12.3); RBC Red Blood Cell Count 4.43 M/uL (3.86-4.86)
[2019-03-10 19:29] LABS: Protime INR 0.99
--- NOTE | 2019-03-10 19:38 | RAD REPORT ---
EXAM DESCRIPTION: Mariaa Single View03/10/2019 7:16 pm CLINICAL HISTORY: Chest pain COMPARISON: October 2018 FINDINGS: The lungs appear clear of acute infiltrate. The heart is normal size IMPRESSION: No acute abnormalities displayed
[2019-03-10] MEDS ORDERED: ASPIRIN 81 MG CHEWABLE TABLET ONE (19:41)
[2019-03-10 19:59] LABS: ALT/SGPT 17 U/L (12-78); AST/SGOT 35 U/L (15-37); Albumin 4.1 g/dL (3.4-5.0); Alkaline Phosphatase 62 U/L (45-117); BUN Blood Urea Nitrogen 15 mg/dL (7-18); Bicarbonate 31 mmol/L (21-32); Bilirubin Direct < 0.1 mg/dL (0-0.2); Bilirubin Total 0.3 mg/dL (0.2-1.0); Glucose Level 99 mg/dL (74-106); Magnesium 2.1 mg/dL (1.8-2.4); NT PRO-BNP 48 pg/mL (<125); Potassium 4.3 mmol/L (3.5-5.1); Protein, Total 7.8 g/dL (6.4-8.2); Sodium Level 144 mmol/L (136-145); Troponin (Emerg Dept Use Only) < 0.02 ng/mL (0.0-0.045)
--- NOTE | 2019-03-10 20:10 | EDPHYS ---
Physician Documentation [facility] Name: Lola Elliott Age: 59 yrs Sex: Female : 1960 Arrival Date: 03/10/2019 Time: 18:22 Bed 28 Private MD: Praful Pardo ED Physician Emile Stephenson HPI: 03/10 19:13 This 59 yrs old Female presents to ER via Ambulatory with complaints of Neck cp Problem. 19:13 The patient or guardian complains of pain, that is acute. The symptoms are located on cp the left lateral. Onset: The symptoms/episode began/occurred 1 hour(s) ago. Context: The problem was sustained at a doctor's office. Associated signs and symptoms: Pertinent negatives: fever, headache, weakness, chest pain. The pain radiates to the left shoulder. Severity of symptoms: in the emergency department the symptoms have improved, mildly. 19:15 Patient reports pain is similar to "heart attack" pain. Patient reports suffering DE cp October 2018 with cardiac stent times 1 placed at [facility] in the medical center. Historical: - Allergies: 18:27 PENICILLINS; aa5 - PMHx: 18:27 Crohn's; Myocardial infarction; aa5 - PSHx: 18:27 colon resection; Heart stents; aa5 - Social history:: Smoking status: Patient/guardian denies using tobacco. - Ebola Screening: : No symptoms or risks identified at this time. ROS: 19:20 Constitutional: Negative for body aches, chills, fever, poor PO intake. cp 19:20 Eyes: Negative for injury, pain, redness, and discharge. cp 19:20 ENT: Negative for drainage from ear(s), ear pain, sore throat, difficulty swallowing, difficulty handling secretions. 19:20 Neck: Negative for pain with movement, pain at rest, stiffness, bony tenderness. 19:20 Cardiovascular: Negative for chest pain, edema, palpitations. 19:20 Respiratory: Negative for cough, shortness of breath, wheezing. 19:20 Abdomen/GI: Negative for abdominal pain, nausea, vomiting, and diarrhea. 19:20 Back: Positive for pain at rest, of the left trapezius and left scapular area, Negative for injury or acute deformity. 19:20 MS/extremity: Positive for pain, of the left shoulder, Negative for injury or acute deformity, decreased range of motion, paresthesias. 19:20 Skin: Negative for cellulitis, rash. 19:20 Neuro: Negative for altered mental status, headache, syncope, weakness. 19:20 All other systems are negative. Exam: 18:45 ECG was reviewed by the Attending Physician. cp 19:25 Constitutional: The patient appears in no acute distress, alert, awake, cp non-diaphoretic, non-toxic, well developed, well nourished. 19:25 Head/Face: Normocephalic, atraumatic. cp 19:25 Eyes: Periorbital structures: appear normal, Conjunctiva: normal, no exudate, no injection, Sclera: no appreciated abnormality, Lids and lashes: appear normal, bilaterally. 19:25 ENT: External ear(s): are unremarkable, Nose: is normal, Mouth: Lips: moist, Oral mucosa: pink and intact, moist, Posterior pharynx: Airway: no evidence of obstruction, patent. 19:25 Neck: External neck: tenderness, that is mild, left lateral neck, C-spine: vertebral tenderness, is not appreciated, crepitus, is not appreciated, ROM/movement: limited range of motion, is not appreciated, nuchal rigidity, is not appreciated. 19:25 Chest/axilla: Inspection: normal, Palpation: is normal, no crepitus, no tenderness. 19:25 Cardiovascular: Rate: normal, Rhythm: regular, Pulses: Pulses are 2+ in right radial artery and left radial artery. Edema: is not appreciated, JVD: is not appreciated. 19:25 Respiratory: the patient does not display signs of respiratory distress, Respirations: normal, no use of accessory muscles, no retractions, no splinting, no tachypnea, labored breathing, is not present, Breath sounds: are clear throughout, no decreased breath sounds, no stridor, no wheezing. 19:25 Abdomen/GI: Inspection: abdomen appears normal, Palpation: abdomen is soft and non-tender, in all quadrants. 19:25 Back: pain, that is mild, of the left trapezius and left scapular area, ROM is normal. 19:25 Musculoskeletal/extremity: ROM: full active range of motion, in the left shoulder. 19:25 Skin: cellulitis, is not appreciated, no rash present. 19:25 Neuro: Orientation: to person, place \\T\\ time. Mentation: is normal, Cerebellar function: is grossly normal, Motor: moves all fours, strength is normal, Sensation: is normal. Vital Signs: 18:28 BP 126 / 63; Pulse 64; Resp 16 S; Temp 97.9(TE); Pulse Ox 100% on R/A; Weight 50.8 kg aa5 (R); Height 5 ft. 1 in. (154.94 cm) (R); Pain 7/10; 19:10 BP 114 / 52; Pulse 76; Resp 17; Temp 98; Pulse Ox 99% on R/A; Pain 0/10; rr5 20:10 BP 115 / 62; Pulse 75; Resp 17; Temp 98.1; Pulse Ox 99% on R/A; Pain 0/10; rr5 18:28 Body Mass Index 21.16 (50.80 kg, 154.94 cm) aa5 MDM: 19:06 Patient medically screened. cp 19:30 Differential diagnosis: Cervical Disc Herniation cervical strain, muscle strain, acute cp DE. 20:06 Data reviewed: vital signs, nurses notes, lab test result(s), EKG, radiologic studies, cp plain films, I have discussed the patient's presentation/case with the attending Emergency Department Physician;. Response to treatment: the patient's symptoms have resolved after treatment, the patient's pain is gone. Refusal of service: The patient/guardian displays adequate decision making capability and despite a detailed discussion of alternatives, benefits, risks, and consequences refuses: Admission to the hospital for further work-up and treatment, repeat of cardiac enzymes. 03/10 18:42 Order name: Basic Metabolic Panel; Complete Time: 20:00 ma2 03/10 18:42 Order name: CBC with Diff; Complete Time: 19:55 ma2 03/10 19:55 Interpretation: Normal except: PLT 472; RDW 17.1. cp 03/10 18:42 Order name: LFT's; Complete Time: 20:00 ma2 03/10 18:42 Order name: Magnesium; Complete Time: 20:00 ma2 03/10 18:42 Order name: NT PRO-BNP; Complete Time: 20:00 ma2 03/10 18:42 Order name: PT-INR; Complete Time: 19:55 ma2 03/10 18:42 Order name: Troponin (emerg Dept Use Only); Complete Time: 20:00 ma2 03/10 18:42 Order name: XRAY Chest (1 view); Complete Time: 19:55 ma2 03/10 18:42 Order name: EKG; Complete Time: 18:43 ma2 03/10 18:42 Order name: Cardiac monitoring; Complete Time: 19:25 ks2 03/10 18:42 Order name: EKG - Nurse/Tech; Complete Time: 19:25 ks2 03/10 18:42 Order name: IV Saline Lock; Complete Time: 19:25 ma2 03/10 18:42 Order name: Labs collected and sent; Complete Time: 19:25 ma2 03/10 18:42 Order name: O2 Per Protocol; Complete Time: 19:25 ma2 03/10 18:42 Order name: O2 Sat Monitoring; Complete Time: 19:25 ma2 EC:45 Rate is 59 beats/min. Rhythm is regular. LA interval is normal. QRS interval is normal. cp QT interval is normal. T waves are Flattened in lead aVL. Interpreted by me. Reviewed by me. Administered Medications: 19:31 Drug: Aspirin Chewable Tablet 162 mg Route: PO; rr5 20:14 Follow up: Response: No adverse reaction rr5 20:14 Not Given (Patient Refused; pain free): morphine 2 mg IVP once rr5 Disposition: 03/11 07:54 Co-signature as Attending Physician, Emile Stephenson MD I agree with the assessment and eboni plan of care. Disposition: 03/10/19 20:09 Patient has left against medical advice. Impression: Pain in left shoulder, Neck pain. - Patients states they are going to Home. - Condition is Stable. - Discharge Instructions: Shoulder Pain, Aspirin and Your Heart. 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 - Problem is new. - Symptoms are resolved. Signatures: Dispatcher [employer] Emile Mary MD MD cha Calderon, Audri, RN RN aa5 Emile Cruz PA PA cp Alzahri, Mohammad, MD MD ma2 Angel Chavarria RN RN rr5 Corrections: (The following items were deleted from the chart) 03/10 20:15 20:09 03/10/2019 20:09 Patients has left against medical advice. Impression: Pain in rr5 left shoulder; Neck pain. Patient states they are going to Home. Condition is Stable. 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 Problem is new. Symptoms are resolved. cp
--- NOTE | 2019-03-10 20:10 | ER ---
Nurse's Notes [facility] Name: Lola Elliott Age: 59 yrs Sex: Female : 1960 Arrival Date: 03/10/2019 Time: 18:22 Bed 28 Private MD: Praful Pardo Diagnosis: Pain in left shoulder;Neck pain Presentation: 03/10 18:25 Presenting complaint: Patient states: left scapular pain radiating to left shoulder aa5 that began 30 minutes ago. Pt states "It feels like the pain I had when I had my heart attack". Pt denies SOB, denies nausea, denies chest pain. 18:25 Transition of care: patient was not received from another setting of care. Onset of aa5 symptoms was March 10, 2019. Risk Assessment: Do you want to hurt yourself or someone else? Patient reports no desire to harm self or others. Initial Sepsis Screen: Does the patient meet any 2 criteria? No. Patient's initial sepsis screen is negative. Does the patient have a suspected source of infection? No. Patient's initial sepsis screen is negative. Care prior to arrival: None. 18:25 Method Of Arrival: Ambulatory aa5 18:25 Acuity: NATHAN 2 aa5 Historical: - Allergies: 18:27 PENICILLINS; aa5 - PMHx: 18:27 Crohn's; Myocardial infarction; aa5 - PSHx: 18:27 colon resection; Heart stents; aa5 - Social history:: Smoking status: Patient/guardian denies using tobacco. - Ebola Screening: : No symptoms or risks identified at this time. Screenin:52 Abuse screen: Denies threats or abuse. Denies injuries from another. Nutritional rr5 screening: No deficits noted. Tuberculosis screening: No symptoms or risk factors identified. Fall Risk IV access (20 points). Total Guevara Fall Scale indicates No Risk (0-24 pts). Assessment: 19:10 General: Appears in no apparent distress. uncomfortable, Behavior is cooperative, rr5 anxious. 19:10 Pain: Denies pain. Neuro: Level of Consciousness is awake, alert, obeys commands, rr5 Oriented to person, place, time, situation, Appropriate for age. Cardiovascular: Reports episode of jaw radiates to left arm pain Capillary refill < 3 seconds Patient's skin is warm and dry. Rhythm is regular. Respiratory: Airway is patent Respiratory effort is even, unlabored, Respiratory pattern is regular, symmetrical. GI: No signs and/or symptoms were reported involving the gastrointestinal system. : No signs and/or symptoms were reported regarding the genitourinary system. EENT: No signs and/or symptoms were reported regarding the EENT system. Derm: Skin is intact, Skin temperature is warm. Musculoskeletal: Capillary refill < 3 seconds, Range of motion: intact in all extremities. 19:25 Reassessment: Patient appears in no apparent distress at this time. patient refused for rr5 morphine medication as verbalized she pain free now. Patient denies pain at this time. Patient states feeling better. Patient states symptoms have improved. 20:10 Reassessment: Patient appears in no apparent distress at this time. Patient is alert, rr5 oriented x 3, equal unlabored respirations, skin warm/dry/pink. patient does not want to stay for observation ED provider explained the results of the exams. patient is pain free as verbalized. discharge instruction given and explained without complaints made. AMA form signed Patient denies pain at this time. Patient states feeling better. Patient states symptoms have improved. Vital Signs: 18:28 BP 126 / 63; Pulse 64; Resp 16 S; Temp 97.9(TE); Pulse Ox 100% on R/A; Weight 50.8 kg aa5 (R); Height 5 ft. 1 in. (154.94 cm) (R); Pain 7/10; 19:10 BP 114 / 52; Pulse 76; Resp 17; Temp 98; Pulse Ox 99% on R/A; Pain 0/10; rr5 20:10 BP 115 / 62; Pulse 75; Resp 17; Temp 98.1; Pulse Ox 99% on R/A; Pain 0/10; rr5 18:28 Body Mass Index 21.16 (50.80 kg, 154.94 cm) aa5 ED Course: 18:22 Patient arrived in ED. mr 18:23 Praful Pardo MD is Private Physician. mr 18:25 Arm band placed on Patient placed in an exam room, on a stretcher. aa5 18:36 Triage completed. aa5 19:01 XRAY Chest (1 view) In Process Unspecified. EDMS 19:06 Emile Cruz PA is PHCP. cp 19:06 Robyn Hancock MD is Attending Physician. cp 19:15 Patient has correct armband on for positive identification. Bed in low position. Call rr5 light in reach. Side rails up X2. monitor car operator on. Pulse ox on. NIBP on. 19:17 Emile Stephenson MD is Attending Physician. cp 19:20 Inserted saline lock: 20 gauge in left antecubital area, using aseptic technique. Blood rr5 collected. 19:20 Initial lab(s) drawn, by me, sent to lab. rr5 19:30 Angel Chavarria, RN is Primary Nurse. rr5 20:14 IV discontinued, intact, bleeding controlled, No redness/swelling at site. Pressure rr5 dressing applied. 20:14 No provider procedures requiring assistance completed. rr5 Administered Medications: 19:31 Drug: Aspirin Chewable Tablet 162 mg Route: PO; rr5 20:14 Follow up: Response: No adverse reaction rr5 20:14 Not Given (Patient Refused; pain free): morphine 2 mg IVP once rr5 Outcome: 20:14 AMA AMA form signed rr5 20:14 Condition: stable 20:14 Discharge instructions given to patient, Instructed on discharge instructions, follow up and referral plans. Demonstrated understanding of instructions, follow-up care. 20:15 Patient left the ED. rr5 Signatures: Dispatcher [employer] Lea Adams Miguel ABailey, RN RN aa5 Emile Cruz PA PA cp Angel Chavarria, RN RN rr5
--- NOTE | 2019-03-11 07:13 | EKG ---
Test Date: 2019-03-10 Test Time: 18:37:00 Commissary Agent: CLIVE MEASUREMENT RESULTS: Intervals: Rate: 59 NE: 170 QRSD: 82 QT: 456 QTc: 451 [place]dermott: P: 63 NE: 170 QRS: 63 T: 54 INTERPRETIVE STATEMENTS: Sinus bradycardia Otherwise normal ECG Compared to ECG 11/02/2018 06:27:24 Sinus rhythm no longer present T-wave abnormality no longer present Possible ischemia no longer present Prolonged QT interval no longer present Electronically Signed On 03-11-19 07:12:25 CDT by Bebeto Lockett
== END 2019-03-10 20:15 | disposition left against medical advice (07) ==
LOC: ER 18:21
DX: M54.2 Cervicalgia (principal); I25.2 Old myocardial infarction; Z88.0 Allergy status to penicillin; Z95.818 Presence of other cardiac implants and grafts
CPT/HCPCS: 36415; 71045; 80048; 80076; 83735; 83880; 84484; 85025; 85610; 93005

== ENCOUNTER 2019-07-24 16:37 | Inpatient (IN) | payer OTHER ==
--- OUTSIDE RECORDS SUMMARY | 2019-07-24 16:40 | XMS REPORT | Clinical Summary ---
:1960 Author Organization [facility] Address [address] [place] [address] Care Team Providers Name Role Phone Unavailable [...] 11/02/2018 Surgery Pauline Olson CATH & PCI Agusto Cortes MD 11/02/2018 - Hospital Encounter Cardiology Wesley Crohn's disease of 11/05/2018 Agusto Cortes colon with MD complication (HCC) 11/02/2018 Orders Only General Internal Medicine 11/02/2018 Travel after 07/23/2018 Social History Tobacco Use Types Packs/Day Years Used Date Never Assessed Sex Assigned at Date Recorded Not on file Job Start Date Occupation Industry Not on file Not on file Not on file Travel History Travel Start Travel End No recent travel history available. Last Filed Vital Signs Vital Sign Reading Time Taken Blood Pressure 117/63 11/05/2018 12:41 PM TRAFFIC II MANAGER Pulse 103 11/05/2018 12:41 PM TRAFFIC II MANAGER Temperature 36.3 C (97.4 F) 11/05/2018 12:41 PM TRAFFIC II MANAGER Respiratory Rate 18 11/05/2018 12:41 PM TRAFFIC II MANAGER Oxygen Saturation 100% 11/05/2018 12:41 PM TRAFFIC II MANAGER Inhaled Oxygen Concentration - - Weight 49.4 kg (109 lb) 11/03/2018 7:30 AM TRAFFIC II MANAGER Height 154.9 cm (5' 1") 11/02/2018 2:40 PM TRAFFIC II MANAGER Body Mass Index 20.6 11/03/2018 7:30 AM TRAFFIC II MANAGER Plan of Treatment Not on file Implants Implanted Type Area Dredge Master Device Shelf Model / Identifier Expiration Serial / Date Lot Synergy Cardiovascular N/A: [place] [id number] 06/07/2020 [id number] / Implanted: Qty: 1 on 11/02/2018 by Agusto Olson MD Heart SCIENTIFIC / [id number] Procedures Procedure Name Priority Date/Time Associated Comments Diagnosis VASCULAR DIAGRAM -SCAN 12/31/2018 4:41 PM TRAFFIC II MANAGER VASCULAR DIAGRAM -SCAN 12/31/2018 4:41 PM TRAFFIC II MANAGER VASCULAR DIAGRAM -SCAN 12/08/2018 8:51 AM TRAFFIC II MANAGER RHYTHM STRIP - SCAN 11/20/2018 3:20 PM TRAFFIC II MANAGER CARDIAC CATH REPORT - 11/20/2018 3:20 SCAN PM TRAFFIC II MANAGER CARDIAC CATH REPORT - 11/13/2018 5:41 SCAN PM TRAFFIC II MANAGER CBC W/PLT COUNT & AUTO STAT 11/05/2018 12:17 Results for this DIFFERENTIAL PM TRAFFIC II MANAGER procedure are in the results section. CBC W/PLT COUNT & AUTO STAT 11/05/2018 12:17 Results for this DIFFERENTIAL PM TRAFFIC II MANAGER procedure are in the results section. ECHOCARDIOGRAM REPORT - 11/04/2018 9:30 SCAN AM TRAFFIC II MANAGER PROTHROMBIN TIME/INR STAT 11/04/2018 9:08 Results for this AM TRAFFIC II MANAGER procedure are in the results section. CBC W/PLT COUNT & AUTO STAT 11/04/2018 5:27 Results for this DIFFERENTIAL AM TRAFFIC II MANAGER procedure are in the results section. CBC W/PLT COUNT & AUTO STAT 11/04/2018 5:27 Results for this DIFFERENTIAL AM TRAFFIC II MANAGER procedure are in the results section. CBC W/PLT COUNT & AUTO Routine 11/03/2018 9:01 Results for this DIFFERENTIAL PM TRAFFIC II MANAGER procedure are in the results section. CBC W/PLT COUNT & AUTO Routine 11/03/2018 9:01 Results for this DIFFERENTIAL PM TRAFFIC II MANAGER procedure are in the results section. TRANSFUSION SERVICE 11/03/2018 6:00 REPORT - SCAN PM TRAFFIC II MANAGER ECG 12-LEAD Routine 11/03/2018 1:13 PM TRAFFIC II MANAGER Procedure Note - Interface, External Ris In - 11/03/2018 1:16 PM TRAFFIC II MANAGER Ventricular Rate 69 BPM Atrial Rate 69 BPM P-R Interval 174 ms QRS Duration 88 ms Q-T Interval 454 ms QTC Calculation(Bazett) 486 ms P [place] 59 degrees R [place] 58 degrees T Omaha 252 degrees Normal sinus rhythm ST & Marked T wave abnormality, consider anterolateral ischemia Prolonged QT Abnormal ECG When compared with ECG of 02-NOV-2018 15:21, No significant change was found ECG 12-LEAD Routine 11/03/2018 1:13 Results for this PM TRAFFIC II MANAGER procedure are in the results section. 2D ECHO W/ DOPPLER MICHAEL 11/03/2018 11:20 Results for this (CW/PW/COLOR) AM TRAFFIC II MANAGER procedure are in the results section. ARTERIAL DOPPLER LEG, Routine 11/03/2018 10:44 Results for this RIGHT AM TRAFFIC II MANAGER procedure are in the results section. CBC W/PLT COUNT & Routine 11/03/2018 4:24 Results for this AUTO DIFFERENTIAL AM TRAFFIC II MANAGER procedure are in the results section. MAGNESIUM Routine 11/03/2018 4:24 Results for this AM TRAFFIC II MANAGER procedure are in the results section. BASIC METABOLIC PANEL Routine 11/03/2018 4:24 Results for this (7) AM TRAFFIC II MANAGER procedure are in the results section. CBC W/PLT COUNT & Routine 11/03/2018 4:24 Results for this AUTO DIFFERENTIAL AM TRAFFIC II MANAGER procedure are in the results section. TROPONIN I STAT 11/03/2018 4:24 Results for this AM TRAFFIC II MANAGER procedure are in the results section. POCT-ACT Routine 11/02/2018 11:38 Results for this PM TRAFFIC II MANAGER procedure are in the results section. TROPONIN I STAT 11/02/2018 10:22 Results for this PM TRAFFIC II MANAGER procedure are in the results section. POCT-ACT Routine 11/02/2018 10:16 Results for this PM TRAFFIC II MANAGER procedure are in the results section. POCT-ACT Routine 11/02/2018 9:16 Results for this PM TRAFFIC II MANAGER procedure are in the results section. POCT-ACT Routine 11/02/2018 5:38 Results for this PM TRAFFIC II MANAGER procedure are in the results section. POCT-ACT Routine 11/02/2018 5:13 Results for this PM TRAFFIC II MANAGER procedure are in the results section. TYPE AND SCREEN, Routine 11/02/2018 4:06 Results for this AUTOMATED PM TRAFFIC II MANAGER procedure are in the results section. HEMOGLOBIN A1C AP Routine 11/02/2018 4:06 Results for this PM TRAFFIC II MANAGER procedure are in the results section. LIPID PANEL Routine 11/02/2018 4:06 Results for this PM TRAFFIC II MANAGER procedure are in the results section. APTT Routine 11/02/2018 4:06 Results for this PM TRAFFIC II MANAGER procedure are in the results section. PROTHROMBIN TIME/INR Routine 11/02/2018 4:06 Results for this PM TRAFFIC II MANAGER procedure are in the results section. B-TYPE NATRIURETIC Routine 11/02/2018 4:06 Results for this FACTOR (BNP) PM TRAFFIC II MANAGER procedure are in the results section. TROPONIN I STAT 11/02/2018 4:06 Results for this PM TRAFFIC II MANAGER procedure are in the results section. TSH/FREE T4 IF Routine 11/02/2018 4:06 Results for this INDICATED PM TRAFFIC II MANAGER procedure are in the results section. MAGNESIUM Routine 11/02/2018 4:06 Results for this PM TRAFFIC II MANAGER procedure are in the results section. COMPREHENSIVE Routine 11/02/2018 4:06 Results for this METABOLIC PANEL PM TRAFFIC II MANAGER procedure are in the results section. L CATH & PCI 11/02/2018 4:00 Non-STEMI (non-ST PM TRAFFIC II MANAGER elevated myocardial infarction) (HCC) ECG 12-LEAD Routine 11/02/2018 3:21 PM TRAFFIC II MANAGER Procedure Note - Interface, External Ris In - 11/02/2018 3:29 PM TRAFFIC II MANAGER Ventricular Rate 57 BPM Atrial Rate 57 BPM P-R Interval 172 ms QRS Duration 86 ms Q-T Interval 504 ms QTC Calculation(Bazett) 490 ms P [place] 51 degrees R [place] 50 degrees T [place] [address] & T wave abnormality, consider inferior ischemia ST & T wave abnormality, consider anterolateral ischemia Prolonged QT Abnormal ECG No previous ECGs available ECG 12-LEAD STAT 11/02/2018 3:21 PM TRAFFIC II MANAGER after 07/23/2018 Results VASCULAR DIAGRAM -SCAN (12/31/2018 4:41 PM TRAFFIC II MANAGER)Only the most recent of3 resultswithin the time period is included. Narrative Performed At RHYTHM STRIP - SCAN (11/20/2018 3:20 PM TRAFFIC II MANAGER) Narrative Performed At CARDIAC CATH REPORT - SCAN (11/20/2018 3:20 PM TRAFFIC II MANAGER) Narrative Performed At CARDIAC CATH REPORT - SCAN (11/13/2018 5:41 PM TRAFFIC II MANAGER) Narrative Performed At CBC with platelet count + automated diff (11/05/2018 12:17 PM TRAFFIC II MANAGER)Only the most recent of4 resultswithin the time period is included. WBC 11.4 (H) 3.5 - 10.5 K/L [facility] RBC 3.20 (L) 3.93 - 5.22 M/L [facility] Hemoglobin 9.8 (L) 11.2 - 15.7 GM/DL [facility] Hematocrit 31.1 (L) 34.1 - 44.9 % [facility] MCV 97.2 (H) 79.4 - 94.8 fL [facility] MCH 30.6 25.6 - 32.2 pg [facility] MCHC 31.5 (L) 32.2 - 35.5 GM/DL [facility] RDW 14.9 (H) 11.7 - 14.4 % [facility] Platelets 410 150 - 450 K/CU MM [facility] MPV 9.9 9.4 - 12.3 fL [facility] nRBC 0 0 - 0 /100 WBC [facility] % Neutros 83 % [facility] % Lymphs 10 % [facility] % Monos 5 % [facility] % Eos 1 % [facility] % Baso 0 % [facility] # Neutros 9.42 (H) 1.56 - 6.13 K/L [facility] # Lymphs 1.14 (L) 1.18 - 3.74 K/L [facility] # Monos 0.62 (H) 0.24 - 0.36 K/L [facility] # Eos 0.09 0.04 - 0.36 K/L [facility] # Baso 0.03 0.01 - 0.08 K/L [facility] Immature Granulocytes-Relative 1 0 - 1 % [facility] Specimen Blood Performing Organization Address City/State/Zipcode Phone Number [facility] [address] [place] [address] [phone] CENTER ECHOCARDIOGRAM REPORT - SCAN (11/04/2018 9:30 AM TRAFFIC II MANAGER) Narrative Performed At Prothrombin time/INR (11/04/2018 9:08 AM TRAFFIC II MANAGER)Only the most recent of2 resultswithin the time period is included. Protime 14.8 (H) 11.7 - 14.7 seconds [facility] INR 1.2 <=5.9 [facility] Specimen Blood Narrative Performed At RECOMMENDED COUMADIN/WARFARIN INR THERAPY [facility] RANGES STANDARD DOSE: 2.0 - 3.0 Includes: PROPHYLAXIS for venous thrombosis, systemic embolization; TREATMENT for venous thrombosis and/or pulmonary embolus. HIGH RISK: Target INR is 2.5-3.5 for patients with mechanical heart valves. Performing Organization Address City/State/[facility] Cent[facility] Phone Number [facility] [address] [place] [address] [phone] CENTER TRANSFUSION SERVICE REPORT - SCAN (11/03/2018 6:00 PM TRAFFIC II MANAGER) Narrative Performed At ECG 12 lead (11/03/2018 1:13 PM TRAFFIC II MANAGER)Only the most recent of2 resultswithin the time period is included. Specimen Narrative Performed At Ventricular Rate 69 BPM GE MUSE Atrial Rate 69 BPM P-R Interval 174 ms QRS Duration 88 ms Q-T Interval 454 ms QTC Calculation(Bazett) 486 ms P [place] 59 degrees R Omaha 58 degrees T Omaha 252 degrees Normal sinus rhythm ST & Marked T wave abnormality, consider anterolateral ischemia Prolonged QT Abnormal ECG When compared with ECG of 02-NOV-2018 15:21, No significant change was found Confirmed by MD BERNARDO JOSEPH P ([id number]) on 11/04/2018 6:58:00 AM Procedure Note Interface, External Ris In - 11/04/2018 6:58 AM TRAFFIC II MANAGER Ventricular Rate 69 BPM Atrial Rate 69 BPM P-R Interval 174 ms QRS Duration 88 ms Q-T Interval 454 ms QTC Calculation(Bazett) 486 ms P [place] 59 degrees R [place] 58 degrees T [place] 252 degrees Normal sinus rhythm ST & Marked T wave abnormality, consider anterolateral ischemia Prolonged QT Abnormal ECG When compared with ECG of 02-NOV-2018 15:21, No significant change was found Confirmed by MD BERNARDO JOSEPH P ([id number]) on 11/04/2018 6:58:00 AM Performing Organization Address [facility] Phone Number [facility] Transthoracic 2D echo w/ doppler (cw/pw/color) (11/03/2018 11:20 AM TRAFFIC II MANAGER) Ejection Fraction [facility] Financial Transaction ServicesON [facility] Specimen Narrative Performed At Transthoracic Echocardiography Report (TTE) [facility] [employer] [facility] Demographics Patient NameGLENN, LOLA Date of Study11/03/2018 MOUNIKA Gender Female Visit [id number] Race Unknown [id number] Number Date of 1960 Steven Akins Physician Age 58 year(s) SonographerJane Velazquez RDCS Examination Proctorfrancesca Thomas Interpreting Herminia May, PhysicianMD Procedure Type [...] External Ris In - 11/04/2018 8:39 AM TRAFFIC II MANAGER Transthoracic Echocardiography Report (TTE) Demographics Patient Name LOLA OSCAR Date of Study 11/03/2018 MOUNIKA Gender Female Visit Number [id number] Race Unknown Room Number C620 Number Date of 1960 Referring Georges Akins Physician Age 58 year(s) Antenna Specialist Jane Velazquez, [facility] Examination Proctor Brigida Thomas Interpreting Physician JHONATAN Roth Procedure [...] mmHg Performing Organization Address City/State/Zipcode Phone Number [facility] [employer] [facility] Arterial doppler leg, right (11/03/2018 10:44 AM TRAFFIC II MANAGER) Ejection Fraction [facility] [employer] [facility] Specimen Impressions Performed At Right Impression [facility] [employer] [facility] 1. 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 with [...] Performed At PV LAB - Pseudoaneurysm Survey [facility] MKCKESSON [facility] Demographics Patient Name LOLA OSCAR Date of Study 11/03/2018 MOUNIKA [id number] Age 58 Visit Number [id number] GenderFemale Accession Number [id number] Date of 1960 Steven ISRAEL BlairRoom Number [id number] Physician SonographGeorge Stephenson.InterpretingElisa Carmen RVT, [...] External Ris In - 11/03/2018 2:06 PM TRAFFIC II MANAGER PV LAB - Pseudoaneurysm Survey Demographics Patient Name LOLA OSCAR Date of Study 11/03/2018 MOUNIKA Age 58 Visit Number [id number] Gender Female Accession Number [id number] Date of 1960 Referring Georges Akins Room Number [id number] Physician Antenna Specialist Jason Stephenson. Interpreting Elisa Carmen, RVT, ARDMS [...] are measured in cm Performing Organization Address City/[facility] [facility] Cent[facility]ode Phone Number [facility] MKCKESSON CPACS Troponin I (11/03/2018 4:24 AM TRAFFIC II MANAGER)Only the most recent of3 resultswithin the time period is included. Troponin I 0.06 (H) 0.00 - 0.03 ng/mL [facility] Specimen Blood Narrative Performed At Troponin I (TnI) levels must be interpreted [facility] in the context of the presenting symptoms [...] tachyarrhythmia. Performing Organization Address City/State/Zipcode Phone Number [facility] [address] [place] [address] [phone] CENTER Magnesium (11/03/2018 4:24 AM TRAFFIC II MANAGER)Only the most recent of2 resultswithin the time period is included. Magnesium 1.9 1.6 - 2.6 mg/dL [facility] Specimen Blood Performing Organization Address City/[facility] [place] [facility] Centercode Phone Number [address] [address] [place] Basic Metabolic Panel (11/03/2018 4:24 AM TRAFFIC II MANAGER) Sodium 141 136 - 145 meq/L [facility] Potassium 4.0 3.5 - 5.1 meq/L [facility] Chloride 111 (H) 98 - 107 meq/L [facility] CO2 24 22 - 29 meq/L [facility] BUN 11 7 - 21 mg/dL [facility] Creatinine 0.66 0.57 - 1.25 mg/dL [facility] Glucose 91 70 - 105 mg/dL [facility] Calcium 8.8 8.4 - 10.2 mg/dL [facility] EGFR 92Comment: ESTIMATED GFR IS mL/min/1.73 sq m [facility] NOT ACCURATE CREATININE [facility] CENTER CLEARANCE IN PREDICTING GLOMERULAR FILTRATION RATE. ESTIMATED GFR IS NOT APPLICABLE FOR DIALYSIS PATIENTS. Specimen Blood Performing Organization Address [facility] [facility] Centercode Phone Number [address] [address] CENTER POC ACTIVATED CLOTTING TIME (11/02/2018 11:38 PM TRAFFIC II MANAGER)Only the most recent of5 resultswithin the time period is included. Activated Clotting Time 142Comment: TESTED AT sec [facility] [address] [place] [id number] Specimen Blood Performing Organization Address City/[facility]/Zipcode Phone Number [address] [address] CENTER Type and screen, automated (11/02/2018 4:06 PM TRAFFIC II MANAGER) ABO/RH AUTOMATED (BEAKER) O NEGATIVE [facility] Ab Scrn NEGATIVE [facility] Specimen Blood Performing Organization Address City/[facility] [facility] Centercode Phone Number [address] [address] [phone] TSH/T4 if indicated (11/02/2018 4:06 PM TRAFFIC II MANAGER) TSH 1.01 0.35 - 4.94 uIU/mL [facility] Specimen Blood Performing Organization Address City/[facility] Phone Number [address] [address] CENTER aPTT (11/02/2018 4:06 PM TRAFFIC II MANAGER) PTT 35.6 22.5 - 36.0 seconds [facility] Specimen Blood Performing Organization Address City/[facility] Phone Number [address] [address] [phone] [place] B-type natriuretic peptide (11/02/2018 4:06 PM TRAFFIC II MANAGER) BNP 92 0 - 100 pg/mL [facility] Specimen Blood Performing Organization Address [facility] Phone Number [address] [address] [phone] [place] Hemoglobin A1c (11/02/2018 4:06 PM TRAFFIC II MANAGER) Hemoglobin A1C 5.9 4.3 - 6.1 % [facility] Specimen Blood Performing Organization Address [facility] [facility] Centercode Phone Number [address] [address] CENTER Lipid panel (11/02/2018 4:06 PM TRAFFIC II MANAGER) Triglycerides 96 mg/dL [facility] Cholesterol 188 mg/dL [facility] HDL 53 mg/dL [facility] LDL Calculated 116 mg/dL [facility] Specimen Blood Narrative Performed At Triglyceride Reference Range: [facility] Low Risk <150 [id number] High Risk 200-499 Very High Risk>=500 Cholesterol Reference Range: Low Risk <200 [id number] High Risk>240 HDL Cholesterol Reference Range: Low Risk >=60 High Risk <40 LDL Cholesterol Reference Range: Optimal<100 Near [id number] [id number] [id number] Very High >=190 Performing Organization Address City/State/Zipcode Phone Number [facility] [address] [place] [address] CENTER Comprehensive metabolic panel (11/02/2018 4:06 PM TRAFFIC II MANAGER) Protein, Total 6.7 6.0 - 8.3 gm/dL [facility] Albumin 4.0 3.5 - 5.0 g/dL [facility] Alkaline Phosphatase 23 (L) 40 - 150 U/L [facility] Total Bilirubin 0.6 0.2 - 1.2 mg/dL [facility] Sodium 141 136 - 145 meq/L [facility] Potassium 3.8 3.5 - 5.1 meq/L [facility] Chloride 106 98 - 107 meq/L [facility] CO2 28 22 - 29 meq/L [facility] BUN 11 7 - 21 mg/dL [facility] Creatinine 0.68 0.57 - 1.25 mg/dL [facility] Glucose 87 70 - 105 mg/dL [facility] Calcium 9.3 8.4 - 10.2 mg/dL [facility] AST 18 5 - 34 U/L [facility] ALT <6 (L) 6 - 55 U/L [facility] EGFR 89Comment: ESTIMATED GFR mL/min/1.73 sq m [facility] IS NOT ACCURATE [facility] CREATININE CLEARANCE IN PREDICTING GLOMERULAR FILTRATION RATE. ESTIMATED GFR IS NOT APPLICABLE FOR DIALYSIS PATIENTS. Specimen Blood Performing Organization Address City/State/Zipcode Phone Number [facility] [address] [place] [address] CENTER after 07/23/2018 Insurance Payer Benefit Plan / Group Subscriber ID Type Phone Address [employer] [facility] CIGNA HMO/POS/OPEN ACCESS xxxxxxxxxxx HMO/POS Advance Directives For more information, please contact:[address] [phone] Code Status Date Activated Date Inactivated Comments Full Code 11/02/2018 2:51 PM This code status was determined by: Patient
--- OUTSIDE RECORDS SUMMARY | 2019-07-24 16:40 | XMS REPORT | Continuity of Care Document ---
:1960 Author Organization [employer] Care Team Providers Name Role Phone [employer] Information [place] Unavailable Unavailable Problems Problem Status Onset Classification Date Comments Source Date Reported INCISIONAL Active [facility] H[facility] Crohn's Active Problem 09/23/2016 [facility] disease [facility] (disorder) Center Incisional Active Problem 09/23/2016 [facility] hernia [facility] (disorder) Center Medications Medication Details Route Status Patient Ordering Order Source Instructions Provider Date Hydromorphone 0.5 mg, Route: Inactive 09/21[facility] IVP, Q5Min, 2015 Medical Dosing Weight Center 51.364, kg, PRN Pain Score 7-10, Start date: 09/20/16 18:30:00 NURSE OB, Duration: 4 doses or times, Stop date: Limited # of times Flumazenil 0.2 mg, Route: Inactive 09/21[facility] IVP, PRN, Dosing 2015 Medical Weight 51.364, Center kg, PRN Benzodiazepine Reversal, Initial dose, Start date: 09/20/16 18:30:00 NURSE OB, Duration: 30 day, Stop date: 10/20/16 18:29:00 NURSE OB Albuterol 0.83 2.49 mg, Route: Inactive 09/21[facility] MG/ML Inhalant NEB, Q20Min, 2015 Medical Solution Dosing Weight Center 51.364, kg, PRN Wheezing, Priority: STAT, Start date: 09/20/16 18:30:00 NURSE OB, Duration: 30 day, Stop date: 10/20/16 18:29:00 NURSE OB Naloxone 0.4 mg, Route: Inactive 09/21[facility] Radha IVP, Q2MIN, 2015 Medical Dosing Weight Center 51.364, kg, PRN Narcotic Reversal, Start date: 09/20/16 18:30:00 NURSE OB, Duration: 8 doses or times, Stop date: Limited # of times Promethazine 6.25 mg, Route: Inactive 09/21[facility] IVPB, ONCE, 2015 Medical Dosing Weight Center 51.364, kg, PRN Nausea & Vomiting, Start date: 09/20/16 18:30:00 NURSE OB Ondansetron 4 mg, Route: Inactive Radha IVP, ONCE, 2016 Medical Dosing Weight Center 51.364, kg, PRN Nausea & Vomiting, Start date: 09/20/16 18:30:00 NURSE OB Oxycodone 5 mg, Route: PO, Inactive Radha Drug form: TAB, 2016 Medical Q4H, Dosing Center Weight 51.364, kg, PRN Pain Score 4-6, Start date: 09/20/16 18:30:00 NURSE OB, Duration: 30 day, Stop date: 10/20/16 18:29:00 NURSE OB Hydralazine 10 mg, Route: Inactive Radha IVP, Q20Min, 2016 Medical Dosing Weight Center 51.364, kg, PRN Elevated BP, Start date: 09/20/16 18:30:00 NURSE OB, Duration: 2 doses or times, Stop date: Limited # of times Sodium Chloride 500 mL, Infuse Inactive Radha 0.154 MEQ/ML Over: 20 2015 Medical Injectable minutes, Route: Center Solution IV, ONCE, Dosing Weight 51.364 kg, Start date: 09/20/16 18:30:00 NURSE OB, Stop date: 09/20/16 18:30:00 NURSE OB Acetaminophen 325 2 tab, PO, Q4H, Active Radha MG / Hydrocodone PRN Pain Score 2016 Medical Bitartrate 5 MG 4-6, 0 Refill(s) Center Oral Tablet [[place] 5/325] Acetaminophen 325 2 tab, Route: No Longer Radha MG / Hydrocodone PO, Drug Form: Active 2016 Medical Bitartrate 5 MG TAB, Dosing Center Oral Tablet Weight 51.364, [[place] 5/325] kg, Q4H, PRN Pain Score 4-6, Start date: 09/20/16 17:58:00 NURSE OB, Duration: 30 day, Stop date: 10/20/16 17:57:00 NURSE OB Zofran 4 mg, 2 mL, Inactive Radha Route: IVP, Drug 2016 Medical form: INJ, ONCE, Center Dosing Weight 51.364, kg, Start date: 09/20/16 17:58:00 NURSE OB, Stop date: 09/20/16 17:58:00 CSTNotes: (Same as: Zofran) MEDICATION WASTE Product Size: 4 mg Product Wasted: ___ mg Acetaminophen 325 1 tab, Route: No Longer Radha MG / Hydrocodone PO, Drug Form: Active 2015 Medical Bitartrate 5 MG TAB, Dosing Center Oral Tablet Weight 51.364, [[place] 5/325] kg, Q4H, PRN Pain Score 1-3, Start date: 09/20/16 17:57:00 NURSE OB, Duration: 30 day, Stop date: 10/20/16 17:56:00 NURSE OB bupivacaine 20 mL, Route: No Longer [place] liposome [facility](loc Active 2015 Medical al), Drug Form: Center INJ, ONCALL, Start date: 09/20/16 16:00:00 NURSE OB, Duration: 1 doses or timesNotes: (Same as: [...] [266 mg]) vancomycin 1 gm, Route: Inactive Radha IVPB, Drug form: 2015 Medical INJ, PRE OP, Center Priority: NOW, Start date: 09/20/16 14:44:00 NURSE OB, Duration: 1 doses or times, Stop date: 09/21/16 0:00:00 CSTNotes: TIME CRITICAL MEDICATION (Same As: Vancocin) Infusion rate 2001 mg: infuse over 2.5 hours MEDICATION WASTE Product Size: 1000 mg Product Wasted: ___ mg Ibuprofen 200 MG 400 mg=2 tab, Active Radha Oral Tablet PO, Q4H, PRN 2015 Medical [Advil] Pain, # 120 tab, Center 0 Refill(s) dexlansoprazole 60 mg=1 cap, PO, Active [place] 60 MG Enteric Daily, # 30 day, 2015 [facility] Coated Capsule 1 Refill(s) [place] [Dexilant] Dexilant PO, Daily, 0 Active [facility] Refill(s) 2015 [facility] Pentasa 1,000 mg, PO, Active [place] QID, 0 Refill(s) 2015 [facility] Imuran Daily, 0 Active [facility] Refill(s) [address] [place] [address] Allergies, Adverse Reactions, Alerts Substance Category Reaction Severity Reaction Status Date Comments Source type Reported penicillins Assertion Drug Active [facility] Immunizations No Data Provided for This Section Results Order Name Results Value Reference Date Interpretation Comments Source Range BLOOD BANK Antibody Negative [facility] RESULTS Scrn (09/20/16 2:30 PM) 2015 [facility] BLOOD BANK ABO/Rh O NEG [facility] RESULTS [address] [place] [address] Pathology Reports No Data Provided for This Section Diagnostic Reports No Data Provided for This Section Consultation Notes No Data Provided for This Section Discharge Summaries No Data Provided for This Section History and Physicals No Data Provided for This Section Vital Signs Vital Sign Value Date Comments Source Respitory Rate 12 09/21/2016 [facility] Systolic (mm Hg) 125 09/21/2016 [facility] Diastolic (mm Hg) 58 09/21/2016 [facility] Respitory Rate 15 09/21/2016 [facility] Systolic (mm Hg) 119 09/21/2016 [facility] Diastolic (mm Hg) 57 09/21/2016 [facility] Systolic (mm Hg) 118 09/21/2016 [facility] Diastolic (mm Hg) 57 09/21/2016 [facility] Respitory Rate 12 09/21/2016 [facility] Heart Rate 62 09/20/2016 [facility] Heart Rate 65 09/16/2016 [facility] Height 154.94 cm 09/16/2016 [facility] Weight 51.364 09/16/2016 [facility] BMI Calculated 21.4 09/16/2016 [facility] Encounters Location Location Encounter Encounter Reason Attending ADM DC Status Source Details Type Number For Provider Date Date Visit [id number] Kostas Leon 09/20 09/21 [facility] /2015 [facility] Procedures Procedure Code Date Perfomer Comments Source Resection<sup>1< [id number] of the colon [facility] /sup> 11/2015 [facility] Assessment and Plan No Data Provided for This Section Plan of Care No Data Provided for This Section Social History Social History Date Source Social History TypeResponse 09/16/2016 [facility] Smoking Status Never smoker; Exposure to Tobacco Smoke None; Cigarette Smoking Last 365 Days No; Reg Smoking Cessation Counseling No Family History No Data Provided for This Section Advance Directives No Data Provided for This Section Functional Status No Data Provided for This Section
--- OUTSIDE RECORDS SUMMARY | 2019-07-24 16:41 | XMS REPORT ---
:1960 [facility] [address] [place] [id number] Care Team Providers Name Role Phone YUNI [...] Comments WHITE BLOOD CELL COUNT (BEAKER) (test prbt=043) 11.4 K/ L 3.5-10.5 RED BLOOD CELL COUNT (BEAKER) (test page=356) 3.20 M/ L 3.93-5.22 HEMOGLOBIN (BEAKER) (test vvis=051) 9.8 GM/DL 11.2-15.7 HEMATOCRIT (BEAKER) (test iplh=148) 31.1 % 34.1-44.9 MEAN CORPUSCULAR VOLUME (BEAKER) (test vkoq=191) 97.2 fL 79.4-94.8 MEAN CORPUSCULAR HEMOGLOBIN (BEAKER) (test pyop=541) 30.6 pg 25.6-32.2 MEAN CORPUSCULAR HEMOGLOBIN CONC (BEAKER) (test maxj=443) 31.5 GM/DL 32.2- 35.5 RED CELL DISTRIBUTION WIDTH (BEAKER) (test uwlv=151) 14.9 % 11.7-14.4 PLATELET COUNT (BEAKER) (test rflm=454) 410 K/CU MM 150-450 MEAN PLATELET VOLUME (BEAKER) (test sakf=441) 9.9 fL 9.4-12.3 NUCLEATED RED BLOOD CELLS (BEAKER) (test ylbv=230) 0 /100 WBC 0-0 NEUTROPHILS RELATIVE PERCENT (BEAKER) (test dqyf=596) 83 % LYMPHOCYTES RELATIVE PERCENT (BEAKER) (test zwys=552) 10 % MONOCYTES RELATIVE PERCENT (BEAKER) (test lchn=315) 5 % EOSINOPHILS RELATIVE PERCENT (BEAKER) (test xtto=067) 1 % BASOPHILS RELATIVE PERCENT (BEAKER) (test hesc=215) 0 % NEUTROPHILS ABSOLUTE COUNT (BEAKER) (test ghuy=589) 9.42 K/ L 1.56-6.13 LYMPHOCYTES ABSOLUTE COUNT (BEAKER) (test agug=604) 1.14 K/ L 1.18-3.74 MONOCYTES ABSOLUTE COUNT (BEAKER) (test jbse=383) 0.62 K/ L 0.24-0.36 EOSINOPHILS ABSOLUTE COUNT (BEAKER) (test bdzw=511) 0.09 K/ L 0.04-0.36 BASOPHILS ABSOLUTE COUNT (BEAKER) (test kltg=282) 0.03 K/ L 0.01-0.08 IMMATURE GRANULOCYTES-RELATIVE PERCENT (BEAKER) (test 1 % 0-1 bdqb=5053) PROTHROMBIN [id number] 09:30:00 Test Item Value Reference Range Comments PROTIME (BEAKER) (test mggf=879) 14.8 seconds 11.7-14.7 INR (BEAKER) (test yyoq=715) 1.2 <=5.9 RECOMMENDED COUMADIN/WARFARIN INR THERAPY RANGESSTANDARD DOSE: 2.0 - 3.0 Includes: PROPHYLAXIS forvenous thrombosis, systemic embolization; TREATMENT for venous thrombosis and/or pulmonary embolus.HIGH RISK: Target INR is 2.5-3.5 for patients with mechanical heart valves.CBC W/PLT COUNT & AUTO [id number] 05:58:00 Test Item Value Reference Range Comments WHITE BLOOD CELL COUNT (BEAKER) (test btpl=052) 12.4 K/ L 3.5-10.5 RED BLOOD CELL COUNT (BEAKER) (test sfun=250) 3.11 M/ L 3.93-5.22 HEMOGLOBIN (BEAKER) (test aszs=747) 9.3 GM/DL 11.2-15.7 HEMATOCRIT (BEAKER) (test gsmb=450) 29.6 % 34.1-44.9 MEAN CORPUSCULAR VOLUME (BEAKER) (test gltz=990) 95.2 fL 79.4-94.8 MEAN CORPUSCULAR HEMOGLOBIN (BEAKER) (test 29.9 pg 25.6-32.2 jtui=269) MEAN CORPUSCULAR HEMOGLOBIN CONC (BEAKER) (test 31.4 GM/DL 32.2-35.5 waem=495) RED CELL DISTRIBUTION WIDTH (BEAKER) (test 14.9 % 11.7-14.4 rdpe=577) PLATELET COUNT (BEAKER) (test uppq=732) 324 K/CU MM 150-450 MEAN PLATELET VOLUME (BEAKER) (test hryl=425) 9.6 fL 9.4-12.3 NUCLEATED RED BLOOD CELLS (BEAKER) (test 0 /100 WBC 0-0 scvi=454) NEUTROPHILS RELATIVE PERCENT (BEAKER) (test 90 % xhkz=657) LYMPHOCYTES RELATIVE PERCENT (BEAKER) (test 5 % gway=650) MONOCYTES RELATIVE PERCENT (BEAKER) (test 4 % dzht=413) EOSINOPHILS RELATIVE PERCENT (BEAKER) (test 0 % giml=289) BASOPHILS RELATIVE PERCENT (BEAKER) (test 0 % zoeu=507) NEUTROPHILS ABSOLUTE COUNT (BEAKER) (test 11.22 K/ L 1.56-6.13 cjoy=566) LYMPHOCYTES ABSOLUTE COUNT (BEAKER) (test 0.60 K/ L 1.18-3.74 bcyf=347) MONOCYTES ABSOLUTE COUNT (BEAKER) (test 0.51 K/ L 0.24-0.36 nwvl=143) EOSINOPHILS ABSOLUTE COUNT (BEAKER) (test 0.02 K/ L 0.04-0.36 moca=240) BASOPHILS ABSOLUTE COUNT (BEAKER) (test 0.02 K/ L 0.01-0.08 ouba=415) IMMATURE GRANULOCYTES-RELATIVE PERCENT (BEAKER) 1 % 0-1 (test qjlk=4546) CBC W/PLT COUNT & AUTO [id number] 21:19:00 Test Item Value Reference Range Comments WHITE BLOOD CELL COUNT (BEAKER) (test vdep=225) 8.7 K/ L 3.5-10.5 RED BLOOD CELL COUNT (BEAKER) (test muax=518) 3.21 M/ L 3.93-5.22 HEMOGLOBIN (BEAKER) (test izgg=072) 9.6 GM/DL 11.2-15.7 HEMATOCRIT (BEAKER) (test scmt=377) 31.1 % 34.1-44.9 MEAN CORPUSCULAR VOLUME (BEAKER) (test oetp=568) 96.9 fL 79.4-94.8 MEAN CORPUSCULAR HEMOGLOBIN (BEAKER) (test 29.9 pg 25.6-32.2 lhrk=021) MEAN CORPUSCULAR HEMOGLOBIN CONC (BEAKER) (test 30.9 GM/DL 32.2-35.5 zdcp=378) RED CELL DISTRIBUTION WIDTH (BEAKER) (test 14.7 % 11.7-14.4 kico=815) PLATELET COUNT (BEAKER) (test bxiz=302) 378 K/CU MM 150-450 MEAN PLATELET VOLUME (BEAKER) (test vqxb=166) 9.7 fL 9.4-12.3 NUCLEATED RED BLOOD CELLS (BEAKER) (test 0 /100 WBC 0-0 chmh=137) NEUTROPHILS RELATIVE PERCENT (BEAKER) (test 69 % wvid=109) LYMPHOCYTES RELATIVE PERCENT (BEAKER) (test 19 % vdve=463) MONOCYTES RELATIVE PERCENT (BEAKER) (test 8 % tktd=262) EOSINOPHILS RELATIVE PERCENT (BEAKER) (test 2 % fyqh=815) BASOPHILS RELATIVE PERCENT (BEAKER) (test 0 % bhqi=019) NEUTROPHILS ABSOLUTE COUNT (BEAKER) (test 6.03 K/ L 1.56-6.13 drqb=483) LYMPHOCYTES ABSOLUTE COUNT (BEAKER) (test 1.69 K/ L 1.18-3.74 ezya=834) MONOCYTES ABSOLUTE COUNT (BEAKER) (test 0.72 K/ L 0.24-0.36 pawo=436) EOSINOPHILS ABSOLUTE COUNT (BEAKER) (test 0.19 K/ L 0.04-0.36 tmzh=900) BASOPHILS ABSOLUTE COUNT (BEAKER) (test 0.02 K/ L 0.01-0.08 excy=380) IMMATURE GRANULOCYTES-RELATIVE PERCENT (BEAKER) 1 % 0-1 (test mffo=8689) HEMOGLOBIN [id number] 07:37:00 Test Item Value Reference Range Comments HEMOGLOBIN A1C (BEAKER) (test niea=812) 5.9 % 4.3-6.1 TROPONIN [id number] 05:16:00 Test Item Value Reference Range Comments TROPONIN I (BEAKER) (test umzm=136) 0.06 ng/mL 0.00-0.03 Troponin I (TnI) levels [...] failure, acidosis, acute neurological disease, and persistent tachyarrhythmia.[id number] 05:07:00 Test Item Value Reference Range Comments MAGNESIUM (BEAKER) (test gklw=713) 1.9 mg/dL 1.6-2.6 BASIC METABOLIC [id number] 05:07:00 Test Item Value Reference Range Comments SODIUM (BEAKER) (test 141 meq/L 136-145 bzfj=242) POTASSIUM (BEAKER) (test 4.0 meq/L 3.5-5.1 uvnj=213) CHLORIDE (BEAKER) (test 111 meq/L 98-107 eigu=402) CO2 (BEAKER) (test 24 meq/L 22-29 twzk=771) BLOOD UREA NITROGEN 11 mg/dL 7-21 (BEAKER) (test xgxz=756) CREATININE (BEAKER) (test 0.66 mg/dL 0.57-1.25 pvii=338) GLUCOSE RANDOM (BEAKER) 91 mg/dL 70-105 (test wtid=172) CALCIUM (BEAKER) (test 8.8 mg/dL 8.4-10.2 agls=026) EGFR (BEAKER) (test 92 mL/min/1.73 sq m ESTIMATED GFR IS NOT eltr=2843) ACCURATE CREATININE CLEARANCE IN PREDICTING GLOMERULAR FILTRATION RATE. ESTIMATED GFR IS NOT APPLICABLE FOR DIALYSIS PATIENTS. CBC W/PLT COUNT & AUTO [id number] 04:51:00 Test Item Value Reference Range Comments WHITE BLOOD CELL COUNT (BEAKER) (test raba=142) 7.6 K/ L 3.5-10.5 RED BLOOD CELL COUNT (BEAKER) (test bhee=319) 3.92 M/ L 3.93-5.22 HEMOGLOBIN (BEAKER) (test gsao=054) 11.7 GM/DL 11.2-15.7 HEMATOCRIT (BEAKER) (test wxzf=326) 37.9 % 34.1-44.9 MEAN CORPUSCULAR VOLUME (BEAKER) (test tqub=085) 96.7 fL 79.4-94.8 MEAN CORPUSCULAR HEMOGLOBIN (BEAKER) (test 29.8 pg 25.6-32.2 rdde=997) MEAN CORPUSCULAR HEMOGLOBIN CONC (BEAKER) (test 30.9 GM/DL 32.2-35.5 tsxe=116) RED CELL DISTRIBUTION WIDTH (BEAKER) (test 15.0 % 11.7-14.4 wgfh=332) PLATELET COUNT (BEAKER) (test yain=989) 415 K/CU MM 150-450 MEAN PLATELET VOLUME (BEAKER) (test arvd=824) 9.7 fL 9.4-12.3 NUCLEATED RED BLOOD CELLS (BEAKER) (test 0 /100 WBC 0-0 bjmw=963) NEUTROPHILS RELATIVE PERCENT (BEAKER) (test 69 % fvvk=358) LYMPHOCYTES RELATIVE PERCENT (BEAKER) (test 20 % xmct=544) MONOCYTES RELATIVE PERCENT (BEAKER) (test 7 % fapb=972) EOSINOPHILS RELATIVE PERCENT (BEAKER) (test 3 % ypjf=296) BASOPHILS RELATIVE PERCENT (BEAKER) (test 0 % hmrd=918) NEUTROPHILS ABSOLUTE COUNT (BEAKER) (test 5.30 K/ L 1.56-6.13 bbpu=048) LYMPHOCYTES ABSOLUTE COUNT (BEAKER) (test 1.54 K/ L 1.18-3.74 ybog=734) MONOCYTES ABSOLUTE COUNT (BEAKER) (test 0.54 K/ L 0.24-0.36 zavc=893) EOSINOPHILS ABSOLUTE COUNT (BEAKER) (test 0.21 K/ L 0.04-0.36 xoeh=950) BASOPHILS ABSOLUTE COUNT (BEAKER) (test 0.03 K/ L 0.01-0.08 luwo=302) IMMATURE GRANULOCYTES-RELATIVE PERCENT (BEAKER) 0 % 0-1 (test johr=4823) [id number] 23:52:00 Test Item Value Reference Range Comments ACTIVATED CLOTTING TIME 142 sec TESTED AT [address] (BEAKER) (test hinp=114) [place] [address] [id number] 23:52:00 Test Item Value Reference Range Comments ACTIVATED CLOTTING TIME 147 sec TESTED AT [place] [address] [facility] (BEAKER) (test ayjs=030) [place] [address] [id number] 23:52:00 Test Item Value Reference Range Comments ACTIVATED CLOTTING TIME 164 sec TESTED AT [place] [address] [facility] ([employer]) (test wgjj=860) [place] [address] TROPONIN [id number] 23:03:00 Test Item Value Reference Range Comments TROPONIN I (BANNER) (test gktw=965) 0.08 ng/mL 0.00-0.03 Troponin I (TnI) levels [...] failure, acidosis, acute neurological disease, and persistent tachyarrhythmia.[id number] 17:46:00 Test Item Value Reference Range Comments ACTIVATED CLOTTING TIME 263 sec TESTED AT [address] ([employer]) (test ulrx=165) [place] [address] [id number] 17:46:00 Test Item Value Reference Range Comments ACTIVATED CLOTTING TIME 252 sec TESTED AT [address] ([employer]) (test lnms=871) [place] [address] TSH/FREE T4 IF [id number] 16:53:00 Test Item Value Reference Range Comments THYROID STIMULATING HORMONE ([employer]) (test 1.01 uIU/mL 0.35-4.94 kbbl=878) TROPONIN [id number] 16:39:00 Test Item Value Reference Range Comments TROPONIN I (BANNER) (test xexn=123) 0.06 ng/mL 0.00-0.03 Troponin I (TnI) levels [...] Value Reference Range Comments B-TYPE NATRIURETIC PEPTIDE ([employer]) (test zovb=933) 92 pg/mL 0-100 LIPID [id number] 16:33:00 Test Item Value Reference Range Comments TRIGLYCERIDES (BEAKER) (test tjxo=455) 96 mg/dL CHOLESTEROL (BEAKER) (test xhay=814) 188 mg/dL HDL CHOLESTEROL (BEAKER) (test ympq=321) 53 mg/dL LDL CHOLESTEROL CALCULATED (BEAKER) (test 116 mg/dL krqe=284) Triglyceride Reference Range: Low Risk <150 Borderline 150- 199 High Risk 200-499 Very High Risk >=500Cholesterol Reference Range: Low Risk <200 Borderline 200-239 High Risk > 240HDL Cholesterol Reference Range: Low Risk >=60 High Risk <40LDL Cholesterol Reference Range: Optimal <100 Near Optimal 100-129 Borderline 130-159 High 160-189 Very High >=[id number] 16:33:00 Test Item Value Reference Range Comments MAGNESIUM (BEAKER) (test yuss=662) 2.0 mg/dL 1.6-2.6 COMPREHENSIVE METABOLIC [id number] 16:33:00 Test Item Value Reference Range Comments TOTAL PROTEIN (BEAKER) 6.7 gm/dL 6.0-8.3 (test zmfz=840) ALBUMIN (BEAKER) (test 4.0 g/dL 3.5-5.0 gvli=6150) ALKALINE PHOSPHATASE 23 U/L 40-150 (BEAKER) (test xugv=300) BILIRUBIN TOTAL (BEAKER) 0.6 mg/dL 0.2-1.2 (test rkcz=117) SODIUM (BEAKER) (test 141 meq/L 136-145 gjcg=206) POTASSIUM (BEAKER) (test 3.8 meq/L 3.5-5.1 udsg=882) CHLORIDE (BEAKER) (test 106 meq/L 98-107 cioc=201) CO2 (BEAKER) (test 28 meq/L 22-29 rlwy=054) BLOOD UREA NITROGEN 11 mg/dL 7-21 (BEAKER) (test garp=242) CREATININE (BEAKER) (test 0.68 mg/dL 0.57-1.25 wfyc=909) GLUCOSE RANDOM (BEAKER) 87 mg/dL 70-105 (test chpj=168) CALCIUM (BEAKER) (test 9.3 mg/dL 8.4-10.2 krtx=799) AST (SGOT) (BEAKER) (test 18 U/L 5-34 xxdw=828) ALT (SGPT) (BEAKER) (test < U/L 6-55 sodm=440) EGFR (BEAKER) (test 89 mL/min/1.73 sq m ESTIMATED GFR IS NOT zobx=2045) ACCURATE CREATININE CLEARANCE IN PREDICTING GLOMERULAR FILTRATION RATE. ESTIMATED GFR IS NOT APPLICABLE FOR DIALYSIS PATIENTS. [id number] 16:31:00 Test Item Value Reference Range Comments PARTIAL THROMBOPLASTIN TIME (BEAKER) (test 35.6 seconds 22.5-36.0 ihet=678) PROTHROMBIN [id number] 16:30:00 Test Item Value Reference Range Comments PROTIME (BEAKER) (test qdfe=858) 13.5 seconds 11.7-14.7 INR (BEAKER) (test orui=565) 1.0 <=5.9 RECOMMENDED COUMADIN/WARFARIN INR THERAPY RANGESSTANDARD DOSE: 2.0 - 3.0 Includes: PROPHYLAXIS forvenous thrombosis, systemic embolization; TREATMENT for venous thrombosis and/or pulmonary embolus.HIGH RISK: Target INR is 2.5-3.5 for patients with mechanical heart valves.
[2019-07-24] MEDS ORDERED: FENTANYL CITR 100 MCG/2 ML ONE ×2 (17:33→21:04)
[2019-07-24] MEDS ORDERED: ONDANSETRON 4 MG/2 ML VIAL ONE (17:33)
[2019-07-24 17:51] LABS: Absolute Lymphocytes (CBC) 1.3 K/uL (0.7-4.9); Basophils % 0.9 % (0-1.3); Hematocrit 33.6 % (36.0-45.0); Lymphocytes % 16.6 % (15.3-44.8); MPV 7.4 fL (7.6-11.3); RBC Red Blood Cell Count 3.72 M/uL (3.86-4.86)
[2019-07-24 18:06] LABS: ALT/SGPT 11 U/L (12-78); AST/SGOT 18 U/L (15-37); Alkaline Phosphatase 40 U/L (45-117); BUN Blood Urea Nitrogen 10 mg/dL (7-18); Bicarbonate 28 mmol/L (21-32); Bilirubin Direct < 0.1 mg/dL (0-0.2); Bilirubin Total 0.2 mg/dL (0.2-1.0); Glucose Level 85 mg/dL (74-106); Lipase 138 U/L (73-393); Potassium 3.7 mmol/L (3.5-5.1); Protein, Total 6.8 g/dL (6.4-8.2); Sodium Level 141 mmol/L (136-145)
[2019-07-24 18:14] LABS: Urine Blood 1+ (NEG); Urine Glucose NEGATIVE (NEG); Urine Protein NEGATIVE (NEG); Urine Specific Gravity 1.005 (1.005-1.030); Urine pH 5.5 (5.0-7.0)
--- NOTE | 2019-07-24 19:31 | RAD REPORT ---
EXAM DESCRIPTION: CT - Abdomen Pelvis W Contrast - 07/24/2019 7:02 pm CLINICAL HISTORY: Abdominal pain COMPARISON: 2016 TECHNIQUE: Computed axial tomography of the abdomen pelvis was obtained. 100 cc Isovue-300 was admin istered intravenously. Oral contrast was not requested which limits evaluation of bowel. All CT scans are performed using dose optimization technique as appropriate and may include automated exposure control or mA/KV adjustment according to patient size. FINDINGS: Swirling of mesenteric vessels is present within the central mid to lower abdomen extendin g to the upper pelvis. There is ill-defined fluid within the mesentery and thickening of a loop of sm all bowel in this region. A complete obstruction is not seen. Small to moderate amount of ascites is present within the pelvis. Gallstones with mild dilatation of the intrahepatic biliary tree. Common bile duct is normal caliber. The, spleen, pancreas, adrenal and kidneys appear unremarkable. IMPRESSION: Swirling of the mesenteric vessels having the appearance of a volvulus. Ill-defined flui d is present within the mesenteries with thickening of the wall of a loop of small bowel. .
[2019-07-24] MEDS ORDERED: METRONIDAZOLE 500mg IVPB 500 MG/100 ML BAG IV ONE (20:50)
[2019-07-24] MEDS ORDERED: CIPROFLOXACIN 400mg IV 400 MG/200 ML BAG IV ONE (20:50)
--- NOTE | 2019-07-24 22:38 | EDPHYS ---
Physician Documentation [facility] Name: Lola Elliott Age: 59 yrs Sex: Female : 1960 Arrival Date: 07/24/2019 Time: 16:40 Bed 16 Private MD: ED Physician Mani Sabillon HPI: 07/24 18:16 This 59 yrs old Female presents to ER via Ambulatory with complaints of jr8 Abdominal Pain. 18:16 The patient presents with abdominal pain in the lower abdomen. Onset: The jr8 symptoms/episode began/occurred gradually, 1 week(s) ago. The symptoms do not radiate. Associated signs and symptoms: none. The symptoms are described as constant, sharp. Modifying factors: The symptoms are alleviated by nothing, the symptoms are aggravated by nothing. Severity of pain: At its worst the pain was moderate in the emergency department the pain is unchanged. The patient has experienced similar episodes in the past, a few times. The patient has been recently seen by a physician:. 21:59 Patient stated that she has been seen by GI and was started on Abx for probable crohn's jr8 flare up. Stated that the pain continues to increase and is bloated. Historical: - Allergies: 17:00 PENICILLINS; sg - Home Meds: 17:00 rifaximin oral oral [Active]; sg - PMHx: 17:00 Crohn's; Myocardial infarction; sg - PSHx: 17:00 colon resection; Heart stents; sg - Immunization history:: Adult Immunizations up to date. - Social history:: Smoking status: Patient/guardian denies using tobacco. - Ebola Screening: : Patient negative for fever greater than or equal to 101.5 degrees Fahrenheit, and additional compatible Ebola Virus Disease symptoms Patient denies exposure to infectious person Patient denies travel to an Ebola-affected area in the 21 days before illness onset No symptoms or risks identified at this time. ROS: 22:28 Eyes: Negative for injury, pain, redness, and discharge, ENT: Negative for injury, jr8 pain, and discharge, Neck: Negative for injury, pain, and swelling, Cardiovascular: Negative for chest pain, palpitations, and edema, Respiratory: Negative for shortness of breath, cough, wheezing, and pleuritic chest pain, Back: Negative for injury and pain, MS/Extremity: Negative for injury and deformity, Skin: Negative for injury, rash, and discoloration, Neuro: Negative for headache, weakness, numbness, tingling, and seizure. 22:28 Abdomen/GI: Positive for abdominal pain, abdominal distension, Negative for nausea, vomiting, and diarrhea. Exam: 22:28 Eyes: Pupils equal round and reactive to light, extra-ocular motions intact. Lids and jr8 lashes normal. Conjunctiva and sclera are non-icteric and not injected. Cornea within normal limits. Periorbital areas with no swelling, redness, or edema. ENT: Nares patent. No nasal discharge, no septal abnormalities noted. Tympanic membranes are normal and external auditory canals are clear. Oropharynx with no redness, swelling, or masses, exudates, or evidence of obstruction, uvula midline. Mucous membranes moist. Neck: Trachea midline, no thyromegaly or masses palpated, and no cervical lymphadenopathy. Supple, full range of motion without nuchal rigidity, or vertebral point tenderness. No Meningismus. Cardiovascular: Regular rate and rhythm with a normal S1 and S2. No gallops, murmurs, or rubs. Normal PMI, no JVD. No pulse deficits. Respiratory: Lungs have equal breath sounds bilaterally, clear to auscultation and percussion. No rales, rhonchi or wheezes noted. No increased work of breathing, no retractions or nasal flaring. Back: No spinal tenderness. No costovertebral tenderness. Full range of motion. Skin: Warm, dry with normal turgor. Normal color with no rashes, no lesions, and no evidence of cellulitis. MS/ Extremity: Pulses equal, no cyanosis. Neurovascular intact. Full, normal range of motion. Neuro: Awake and alert, GCS 15, oriented to person, place, time, and situation. Cranial nerves II-XII grossly intact. Motor strength 5/5 in all extremities. Sensory grossly intact. Cerebellar exam normal. Normal gait. 22:28 Abdomen/GI: Inspection: distension, that is mild, in the right lower quadrant and left lower quadrant, Bowel sounds: active, all quadrants, Palpation: soft, in all quadrants, mild abdominal tenderness, in the right lower quadrant, mass, is not appreciated, rebound tenderness, is not appreciated, voluntary guarding, is not appreciated, involuntary guarding, is not appreciated, no appreciated organomegaly, Indicators: McBurney's point is not tender, Acosta's sign is negative, Rovsing's sign is negative, Liver: tenderness, is not appreciated. Vital Signs: 17:01 BP 126 / 72; Pulse 77; Resp 17; Temp 98.2; Pulse Ox 99% on R/A; Pain 10/10; sg 18:14 BP 114 / 71; Pulse 82; Resp 15; Pulse Ox 95% on R/A; rv 19:00 BP 138 / 46; Pulse 87; Resp 15; Pulse Ox 100% on R/A; rv 20:00 BP 112 / 65; Pulse 86; Resp 14; Pulse Ox 98% on R/A; rv 21:00 BP 138 / 86; Pulse 88; Resp 15; Pulse Ox 100% on R/A; rv 21:47 BP 126 / 97; Pulse 89; Resp 15; Pulse Ox 98% on R/A; rv MDM: 17:04 Patient medically screened. jr8 21:58 ED course: Spoke with Dr. Yoel Modi about patient. Wants us to keep her here overnight jr8 to ensure stability. Will have Dr. Borrego come out to assess patient now to determine if patient needs immediate surgical attention. If patient remains stable and without surgical need Dr. Modi stated that he would accept tomorrow. 22:28 Data reviewed: vital signs, nurses notes, lab test result(s), radiologic studies, CT jr8 scan. Data interpreted: Pulse oximetry: on room air is 98 %. Interpretation: normal. Counseling: I had a detailed discussion with the patient and/or guardian regarding: the historical points, exam findings, and any diagnostic results supporting the discharge/admit diagnosis, lab results, radiology results, the need for further work-up and treatment in the hospital. ED course: Dr. Borrego saw patient and will admit here. Will observe overnight. If still well will transfer to [facility] in the AM Dr. Modi. 07/25 14:20 Physician consultation: Dr Garcia was called at 14:20, was contacted at 14:20, snw regarding regarding transfer, for Dr. Modi services/pt request. 07/24 17:04 Order name: Basic Metabolic Panel jr8 07/24 17:04 Order name: CBC with Diff jr8 07/24 17:04 Order name: Creatinine for Radiology jr8 07/24 17:04 Order name: Hepatic Function [facility] 07/24 17:04 Order name: Lipase [facility] 07/24 17:56 Order name: CBC with Automated Diff; Complete Time: 18:12 EDMS 07/24 18:03 Order name: Urine Dipstick--Ancillary (enter results) 07/24 18:07 Order name: Basic Metabolic Panel; Complete Time: 18:12 EDMS 07/24 18:07 Order name: Liver (Hepatic) Function; Complete Time: 18:12 EDMS 07/24 18:07 Order name: Lipase; Complete Time: 18:12 EDMS 07/24 18:11 Order name: Creatinine (Radiology Only); Complete Time: 18:12 EDMS 07/24 18:14 Order name: Urine Dipstick-Ancillary; Complete Time: 18:14 EDMS 07/24 19:38 Order name: Lactate [facility] 07/24 20:19 Order name: Lactate; Complete Time: 20:29 EDMS 07/24 18:12 Order name: CT Abd/Pelvis - IV Contrast Only [facility] 07/24 19:35 Order name: CT; Complete Time: 19:37 EDMS 07/25 06:00 Order name: CBC with Automated Diff; Complete Time: 06:30 EDMS 07/25 06:04 Order name: Comprehensive Metabolic Panel; Complete Time: 06:30 EDMS 07/25 06:04 Order name: Phosphorus; Complete Time: 06:30 EDMS 07/25 06:04 Order name: Magnesium; Complete Time: 06:30 EDMS 07/25 06:04 Order name: Lipase; Complete Time: 06:30 EDMS 07/25 06:51 Order name: Protime (+INR); Complete Time: 10:10 EDMS 07/25 06:51 Order name: PTT, Activated Partial Thromb; Complete Time: 10:10 EDMS 07/25 12:38 Order name: RAD; Complete Time: 14:19 EDMS 07/24 17:04 Order name: IV Saline Lock; Complete Time: 17:50 [facility] 07/24 17:04 Order name: Labs collected and sent; Complete Time: 17:50 [facility] 07/24 17:04 Order name: Urine Dipstick-Ancillary (obtain specimen); Complete Time: 17:51 [facility] Administered Medications: 07/24 14:45 Drug: fentaNYL (PF) 50 mcg Route: IVP; Site: left antecubital; rv 14:45 Follow up: RASS 0 rv 18:16 Follow up: Response: No adverse reaction; Pain is decreased rv 14:45 Drug: Zofran 4 mg Route: IVP; Site: left antecubital; rv 18:16 Follow up: Response: No adverse reaction rv 21:00 Drug: Cipro 400 mg Volume: 200 ml; Route: IVPB; Infused Over: 60 mins; Site: left rv antecubital; 22:04 Follow up: IV Status: Completed infusion; IV Intake: 200ml rv 21:00 Drug: Flagyl 500 mg Volume: 100 ml; Route: IVPB; Rate: 200 ml/hr; Infused Over: 30 rv mins; Site: left antecubital; 22:04 Follow up: IV Status: Completed infusion; IV Intake: 100ml rv 21:05 Drug: fentaNYL (PF) 50 mcg {Note: rass 0.} Route: IVP; Site: left antecubital; rv 22:04 Follow up: Response: No adverse reaction; Marked relief of symptoms; Pain is decreased; rv RASS: Alert and Calm (0) 07/25 00:41 Drug: D5-1/2 NS 1000 ml Route: IV; Rate: 100 ml/hr; Site: left antecubital; ea Disposition: 07/26 08:57 Co-signature as Attending Physician, Mani Sabillon MD I agree with the assessment and kdr plan of care. Disposition: 07/24/19 22:36 Hospitalization ordered by Robyn El for Inpatient Admission. 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 - Bed requested for [facility] ER HOLD. - Status is Inpatient Admission. em - Condition is Stable. - Problem is new. - Symptoms have improved. UTI on Admission? No Signatures: Dispatcher [employer] Fe Weston RN RN dw Gay, Steven, RN RN sg Rittger, Kevin, MD MD kdr Therrien, Shelly, FNP-[place] SALES SECRETARY-Ramón Nielsen, SUPERVISOR STONE SUPERVISOR STONE em Akua Perez RN RN bb Roszak, Josh, PA PA jr8 Emile Cruz PA PA cp Antunez, Elena, RN RN ea Botello, Elizabeth eb Vicente, Ronaldo RN RN rv Corrections: (The following items were deleted from the chart) 07/24 23:58 22:36 Hospitalization Ordered by Robyn El MD for Inpatient Admission. Preliminary bb diagnosis is Volvulus - small intestine . Bed requested for Telemetry/MedSurg (Inpatient). Status is Inpatient Admission. Condition is Stable. Problem is new. Symptoms have improved. UTI on Admission? No. jr8 07/25 11:40 07/24 23:58 07/24/2019 22:36 Hospitalization Ordered by Robyn El MD for Inpatient dw Admission. 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 Bed requested for [facility] ER HOLD. Status is Inpatient Admission. Condition is Stable. Problem is new. Symptoms have improved. UTI on Admission? No. bb 07/25 11:43 11:40 07/24/2019 22:36 Hospitalization Ordered by Robyn El MD for Inpatient dw Admission. 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 Bed requested for Telemetry/MedSurg (Inpatient). Status is Inpatient Admission. Condition is Stable. Problem is new. Symptoms have improved. UTI on Admission? No. dw 12:05 11:43 07/24/2019 22:36 Hospitalization Ordered by Robyn El MD for Inpatient eb Admission. 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 Bed requested for [facility] ER HOLD. Status is Inpatient Admission. Condition is Stable. Problem is new. Symptoms have improved. UTI on Admission? No. dw 15:37 12:05 07/24/2019 22:36 Hospitalization Ordered by Robyn El MD for Inpatient em Admission. 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 Bed requested for [facility] ER HOLD. Status is Inpatient Admission. Condition is Stable. Problem is new. Symptoms have improved. UTI on Admission? No. eb
--- NOTE | 2019-07-24 22:38 | ER ---
Nurse's Notes [facility] Name: Lola Elliott Age: 59 yrs Sex: Female : 1960 Arrival Date: 07/24/2019 Time: 16:40 Bed 16 Private MD: Diagnosis: Volvulus-small intestine Presentation: 07/24 17:01 Presenting complaint: Patient states: I have a hx of chrons disease, was seen by sg on Friday and started on new medications but have not had any change in my pain or my condition, I have not had any blood in my stool yet, Im in excruciating pain. Transition of care: patient was not received from another setting of care. Onset of symptoms was July 24, 2019. Risk Assessment: Do you want to hurt yourself or someone else? Patient reports no desire to harm self or others. Initial Sepsis Screen: Does the patient meet any 2 criteria? No. Patient's initial sepsis screen is negative. Does the patient have a suspected source of infection? Yes: Acute abdominal pain. Care prior to arrival: None. 17:01 Method Of Arrival: Ambulatory 17:01 Acuity: NATHAN 3 sg Historical: - Allergies: 17:00 PENICILLINS; sg - Home Meds: 17:00 rifaximin oral oral [Active]; sg - PMHx: 17:00 Crohn's; Myocardial infarction; sg - PSHx: 17:00 colon resection; Heart stents; sg - Immunization history:: Adult Immunizations up to date. - Social history:: Smoking status: Patient/guardian denies using tobacco. - Ebola Screening: : Patient negative for fever greater than or equal to 101.5 degrees Fahrenheit, and additional compatible Ebola Virus Disease symptoms Patient denies exposure to infectious person Patient denies travel to an Ebola-affected area in the 21 days before illness onset No symptoms or risks identified at this time. Screenin:49 Abuse screen: Denies threats or abuse. Denies injuries from another. Nutritional rv screening: No deficits noted. Tuberculosis screening: No symptoms or risk factors identified. Fall Risk None identified. Assessment: 17:48 General: Appears in no apparent distress. comfortable, Behavior is calm, cooperative. rv Pain: Complains of pain in abdomen. Neuro: Level of Consciousness is awake, alert, obeys commands, Oriented to person, place, time, situation. Cardiovascular: Patient's skin is warm and dry. Respiratory: Airway is patent. GI: Bowel sounds present X 4 quads. Abd is soft and non tender X 4 quads. : No signs and/or symptoms were reported regarding the genitourinary system. EENT: No signs and/or symptoms were reported regarding the EENT system. Derm: Skin is intact. Musculoskeletal: No signs and/or symptoms reported regarding the musculoskeletal system. 20:00 Reassessment: Patient appears in no apparent distress at this time. No changes from rv previously documented assessment. Patient and/or family updated on plan of care and expected duration. Pain level reassessed. Patient is alert, oriented x 3, equal unlabored respirations, skin warm/dry/pink. 20:00 Reassessment: Naveen VANEGAS talked to patient regarding result of the blood exams and CT rv scan, plan of care explained. patient agreed. patient for transfer to [facility], awaiting acceptance. Vital Signs: 17:01 BP 126 / 72; Pulse 77; Resp 17; Temp 98.2; Pulse Ox 99% on R/A; Pain 10/10; sg 18:14 BP 114 / 71; Pulse 82; Resp 15; Pulse Ox 95% on R/A; rv 19:00 BP 138 / 46; Pulse 87; Resp 15; Pulse Ox 100% on R/A; rv 20:00 BP 112 / 65; Pulse 86; Resp 14; Pulse Ox 98% on R/A; rv 21:00 BP 138 / 86; Pulse 88; Resp 15; Pulse Ox 100% on R/A; rv 21:47 BP 126 / 97; Pulse 89; Resp 15; Pulse Ox 98% on R/A; rv ED Course: 16:40 Patient arrived in ED. rg4 17:00 Arm band placed on. sg 17:02 Triage completed. sg 17:03 Naveen Parsons PA is PHCP. jr8 17:03 Mani Sabillon MD is Attending Physician. jr8 17:29 Dasha Vicente, JUDE is Primary Nurse. hb 17:30 Inserted saline lock: 20 gauge in left antecubital area, using aseptic technique. Blood rv collected. 17:48 Shun Jackson, RN is Primary Nurse. rv 17:50 Patient has correct armband on for positive identification. Bed in low position. Call rv light in reach. Side rails up X 1. Pulse ox on. NIBP on. 22:36 Robyn El MD is Hospitalizing Provider. jr8 07/25 04:37 No provider procedures requiring assistance completed. Patient admitted, IV remains in ea place. 10:20 initiated a transfer with Jaz from the [facility]. eb 11:29 connected the director of first impressions surgeon who's covering for Dr. Modi the patient's surgeon from [facility] with the hospitalist Coni PHOTOGRAPHY INSTRUCTOR for patient transfer consultation. 11:55 Dr. Modi asks to please have Dr. Borrego call him through the transfer center/ message eb given to Dr. Borrego. 14:[address] Jovel the internal medicine doctor director of first impressions for [facility] with the hospitalist Coni PHOTOGRAPHY INSTRUCTOR for patient transfer consultation. 14:34 administrative approval given by Aliyah Moon/ patient has been accepted to [facility] bed 973/ Dr. Garcia has accepted the patient in transfer/ report to be called to the transfer center [phone]. Administered Medications: 07/24 14:45 Drug: fentaNYL (PF) 50 mcg Route: IVP; Site: left antecubital; rv 14:45 Follow up: RASS 0 rv 18:16 Follow up: Response: No adverse reaction; Pain is decreased rv 14:45 Drug: Zofran 4 mg Route: IVP; Site: left antecubital; rv 18:16 Follow up: Response: No adverse reaction rv 21:00 Drug: Cipro 400 mg Volume: 200 ml; Route: IVPB; Infused Over: 60 mins; Site: left rv antecubital; 22:04 Follow up: IV Status: Completed infusion; IV Intake: 200ml rv 21:00 Drug: Flagyl 500 mg Volume: 100 ml; Route: IVPB; Rate: 200 ml/hr; Infused Over: 30 rv mins; Site: left antecubital; 22:04 Follow up: IV Status: Completed infusion; IV Intake: 100ml rv 21:05 Drug: fentaNYL (PF) 50 mcg {Note: rass 0.} Route: IVP; Site: left antecubital; rv 22:04 Follow up: Response: No adverse reaction; Marked relief of symptoms; Pain is decreased; rv RASS: Alert and Calm (0) 07/25 00:41 Drug: D5-1/2 NS 1000 ml Route: IV; Rate: 100 ml/hr; Site: left antecubital; ea Intake: 07/24 22:04 IV: 100ml; Total: 100ml. rv 22:04 IV: 200ml; Total: 300ml. rv Outcome: 22:36 Decision to Hospitalize by Provider. jr8 23:00 Admitted to ER Hold. Please see [facility] for further documentation. ea 23:00 Condition: stable 23:00 Instructed on the need for admit. 07/25 15:37 Patient left the ED. em Signatures: Darin Kendrick, RN RN Ramón Miles, POULTRY PATHOLOGIST POULTRY PATHOLOGIST em Naveen Parsons PA PA jr8 Dasha Vicente, RN RN Tricia Ohara4 [place] RN RN Lula Mendez Ronaldo RN RN rv Corrections: (The following items were deleted from the chart) 11:45 11:[address] Modi the patient's surgeon from [facility] with the hospitalist macie Newberry PHOTOGRAPHY INSTRUCTOR for patient transfer consultation. eb
[2019-07-24] MEDS ORDERED: ACETAMINOPHEN 500 MG TAB PO PRN (22:44)
[2019-07-24] MEDS ORDERED: ONDANSETRON 4 MG/2 ML VIAL IV PRN (22:44)
[2019-07-24] MEDS ORDERED: HYDROMORPHONE HCL 1 MG/ML INJ IV PRN (22:44)
[2019-07-24] MEDS ORDERED: MAGNESIUM HYDROXIDE 8% 30 ML PO PRN (22:44)
[2019-07-24] MEDS ORDERED: NA CHLORIDE 0.9% 1,000 ML IV SCH (23:00)
[2019-07-24] MEDS ORDERED: D5W 0 ML IV ONE (23:24)
[2019-07-25] MEDS ORDERED: CEFOXITIN SODIUM 1 GM/VIAL IVPB SCH
[2019-07-25] MEDS ORDERED: D5 0.45 NS 1,000 ML IV ONE (00:27)
--- NOTE | 2019-07-25 00:59 | CON ---
Reason: Abdominal pain. History Of Present Illness: Patient is a 59-year-old female who comes in with a 1-week history of di ffuse lower abdominal pain. Denies any nausea or vomiting. She does have some constipation. She is passing gas. No fever or chills in the ER, but she did have some subjective fevers at home. She wa s feeling that she called Dr. Lawson on . He prescribed GasX. She was not better. She went to see him and he prescribed her antibiotic. She does have a history of Crohn disease and she did h ave a resection of her bowel approximately 3 foot. She is not sure whether it was the small bowel or the colon, and that was done approximately 3-1/[address] Yoel Modi. She has no sore throat , runny nose, cough, headaches, or dizziness. No chest pain. She did have an FL about 9 months ago and she did have a stent placed and she is on Plavix and aspirin. Review of Systems: Otherwise unremarkable. Past Medical History: Significant for Crohn disease, coronary artery disease. Past Surgical History: Significant for partial bowel resection, hernia surgery. Allergies: PENICILLIN. SHE DOES NOT SMOKE. DRINKS ALCOHOL OCCASIONALLY. Family History: Otherwise noncontributory. Physical Examination: Vital Signs: Currently are stable. She is afebrile. General: She is awake, alert, and oriented x3. Head and Neck: Cranial nerves 2 through 12 are grossly within normal limits. No neck masses. No JV D. Throat clear. Neck supple. Chest: Clear. Heart: S1, S2. Abdomen: Soft, slightly distended in the lower abdomen. There is diffuse tenderness. There is no r ebound, rigidity, or guarding. In the upper abdomen, the abdomen is soft. Extremities: Adequately perfused. Nontender. Neuro: Nonfocal. Laboratory Data: White count of 8.1, H and H are 11 and 33.6, platelets are slightly high at 462. T here is no left shift. Chemistry reviewed. Her CO2 is 28, lactic acid is 0.5. LFT and lipase are w ithin normal limits. CT of the abdomen and pelvis reviewed shows swelling in the mesentery vessels h aving the appearance of a volvulus. Ill-defined fluid present within the mesenteries with thickening of the wall of the loop of small bowel. Complete obstruction is not seen at this time. Assessment: 59-year-old female with abdominal pain. Etiology could be a partial volvulus of small b owel, enteritis, or combination thereof. Patient does not have peritonitis at this time. Recommendations: The ER attempted to contact Dr. Modi. He was contacted. He has agreed to accept t he patient should the patient needed to be transferred in the morning. At this time, he just wanted an immediate evaluation to make sure the patient did not have peritonitis and needed emergent surgica l intervention, and at this point, patient does not need any surgical intervention. Patient will be admitted to our hospital. Right now, made n.p.o., IV fluids, IV antibiotics, empiric in nature, NG t ube. If she vomits, will get another abdominal x-ray in the morning to make sure she is not getting worse and we will repeat the labs, and if she has not clinically improved significantly in the [facility] g, she will need to be transferred to her colorectal surgeon. BHARGAV/LEXI Voice ID: [id number] Report ID: [id number]
[2019-07-25] MEDS ORDERED: NA CHLORIDE 0.9% 1,000 ML ONE (04:52)
[2019-07-25] MEDS ORDERED: METRONIDAZOLE 500mg IVPB 500 MG/100 ML BAG IV ONE (04:52)
[2019-07-25] MEDS ORDERED: CEFOXITIN/SWI 1gm 1 GM/10 ML SYR ONE (04:52)
[2019-07-25 05:47] VITALS: BMI 20.7
[2019-07-25 05:56] LABS: Absolute Lymphocytes (CBC) 0.9 K/uL (0.7-4.9); Basophils % 0.3 % (0-1.3); Hematocrit 35.7 % (36.0-45.0); Lymphocytes % 13.2 % (15.3-44.8); MPV 7.4 fL (7.6-11.3); RBC Red Blood Cell Count 3.91 M/uL (3.86-4.86)
[2019-07-25 06:02] LABS: ALT/SGPT 10 U/L (12-78); AST/SGOT 11 U/L (15-37); Albumin 2.8 g/dL (3.4-5.0); Alkaline Phosphatase 35 U/L (45-117); BUN Blood Urea Nitrogen 8 mg/dL (7-18); Bicarbonate 27 mmol/L (21-32); Bilirubin Total 0.2 mg/dL (0.2-1.0); Glucose Level 137 mg/dL (74-106); Lipase 73 U/L (73-393); Magnesium 2.1 mg/dL (1.8-2.4); Phosphorus 3.8 mg/dL (2.5-4.9); Potassium 3.6 mmol/L (3.5-5.1); Protein, Total 6.4 g/dL (6.4-8.2); Sodium Level 141 mmol/L (136-145)
[2019-07-25 06:18] LABS: Protime INR 1.11
[2019-07-25 08:34] VITALS: BP 97/62
[2019-07-25] MEDS ORDERED: ENOXAPARIN 30 MG/0.3 ML SQ SCH (09:00)
[2019-07-25] MEDS ORDERED: ENOXAPARIN 30 MG/0.3 ML SQ ONE (09:32)
[2019-07-25] MEDS ORDERED: HYDROMORPHONE HCL 1 MG/ML INJ ONE (10:59)
[2019-07-25] MEDS ORDERED: CEFOXITIN 1 GM in NA CHLORIDE 0.9% 50 ML IVPB SCH ×3 (12:00)
[2019-07-25] MEDS ORDERED: METRONIDAZOLE 500mg IVPB 500 MG/100 ML BAG IV SCH ×2 (12:00)
--- NOTE | 2019-07-25 12:36 | RAD REPORT ---
EXAM DESCRIPTION: RAD - Abdomen W Erect - 07/25/2019 12:09 pm CLINICAL HISTORY: small bowel volvulus Pain COMPARISON: Abdomen Pelvis W Contrast dated 07/24/2019 FINDINGS: The bowel gas pattern is non-obstructive. No evidence of free air or pneumatosis. No suspi cious calcifications. No significant bony findings. IMPRESSION: Negative examination.
[2019-07-25 12:58] VITALS: TEMP 98.1
--- NOTE | 2019-07-25 14:34 | P.CNS ---
Ms. Elliott requested transfer to [facility] to see Dr. Modi. Dr. Lawson encouraged pt to be seen at [facility]. Dr. Modi' group was contacted last evening regarding transfer. It was requested pt be seen here by surgery prior to acceptance. Group contacted today post Dr. Borrego's evaluation of the patient. I spoke with Dr. Garcia, hospitalist, at [facility] and he kindly accepts pt in transfer.
[2019-07-25 17:09] VITALS: O2SAT 98
--- NOTE | 2019-07-26 00:16 | P.HP ---
Certification for Inpatient Patient admitted to: Inpatient With expected LOS: >2 Midnights Patient will require the following post-hospital care: None Practitioner: I am a practitioner with admitting privileges, knowledge of patient current condition, hospital course, and medical plan of care. Services: Services provided to patient in accordance with Admission requirements found in Title 42 Section 412.3 of the Code of Federal Regulations Patient History Date of Service: 07/25/19 Reason for admission: Hematochezia History of Present Illness: This is a 59-year-old female who has a history of Crohn's disease. She follows up with Gastroenterology, Dr. Lawson. She also follows up with Dr. Modi at [facility]. Patient has not seen any bloody stools. She has been admitted for prior colitis episodes. There was concern that patient had a exacerbation of Crohn's disease. Patient was to get transfer to [facility] but after evaluation by our local surgery team decision was made to keep patient here and possible transfer in a.m. if she is still feeling weak. Allergies Penicillins Allergy (Verified 10/31/18 22:00) Shortness of breath Home Medications: Dexlansoprazole [Kapidex] 1 cap PO DAILY 10/31/18 Linaclotide [Linzess] 1 cap PO DAILY 10/31/18 Mesalamine [Pentasa*] 4 cap PO DAILY 10/31/18 azaTHIOprine [Azathioprine] 2 tab PO DAILY 10/31/18 ALPRAZolam [Xanax*] 0.25 mg PO TIDP PRN tab 11/02/18 Aspirin Tab [Zion Aspirin*] 325 mg PO DAILY tab 11/02/18 Atorvastatin Calcium [Lipitor*] 40 mg PO BEDTIME tab 11/02/18 Clopidogrel Bisulfate [Plavix*] 75 mg PO DAILY tablet 11/02/18 Enoxaparin Sodium [Lovenox 60 MG INJ*] 50 mg SQ Q12H syr 11/02/18 Metoprolol Tartrate [Lopressor*] 50 mg PO BID tab 11/02/18 Morphine [Morphine Sulfate*] 4 mg IV Q4HP PRN syr 11/02/18 Ondansetron [Zofran*] 4 mg IV Q6HP PRN vial 11/02/18 Pharmacy Consult 1 ea XX DAILYPRN PRN each 11/02/18 - Past Medical/Surgical History Diabetic: No -: Crohn's disease -: hernia sx -: Partial colectomy-3ft colon removed - Family History Father Family History: Reviewed- Non-Contributory - Social History Smoking Status: Never smoker Alcohol use: No CD- Drugs: No Place of Residence: Home Review of Systems 10-point ROS is otherwise unremarkable Physical Examination - Vital Signs Temperature: 98.1 F Blood Pressure: 97/62 Pulse: 80 Respirations: 16 Pulse Ox (%): 96 - Physical Exam General: Alert, In no apparent distress, Oriented x3 HEENT: Atraumatic, PERRLA, Mucous membr. moist/pink, EOMI, Sclerae nonicteric Neck: Supple, 2+ carotid pulse no bruit, No LAD, Without JVD or thyroid abnormality Respiratory: Clear to auscultation bilaterally, Normal air movement Cardiovascular: Regular rate/rhythm, Normal S1 S2, No murmurs Gastrointestinal: Normal bowel sounds, Soft and benign, Non-distended, No tenderness Musculoskeletal: No clubbing, No swelling, No tenderness Integumentary: No rashes Neurological: Normal gait, Normal speech, Normal strength at 5/5 x4 extr, Normal tone, Sensation intact, Cranial nerves 3-12 intact, Normal affect Lymphatics: No axilla or inguinal lymphadenopathy Assessment & Plan - Problems (Diagnosis) (1) Exacerbation of Crohn's disease Current Visit: Yes Status: Acute Qualifiers: Digestive disease complication type: other complication Qualified Code(s): K50.918 - Crohn's disease, unspecified, with other complication (2) Sigmoid volvulus Current Visit: Yes Status: Acute (3) Chest pain, rule out acute myocardial infarction Current Visit: Yes Status: Acute - Plan Plan: 1. IV hydration 2. Pain control 3. Anti emetics 4. Monitor labs closely 5. Possible transfer in a.m. 6. Gastroenterology Consultation Discharge Plan: Home Plan to discharge in: 48 Hours - Advance Directives Does patient have a Living Will: No Does patient have a Durable POA for Healthcare: No - Code Status/Comfort Care Code Status Assessed: Yes Code Status: Full Code Critical Care: No Time Spent Managing PTS Care (In Minutes): 45
--- NOTE | 2019-07-26 02:41 | P.DS ---
Discharge Date: 07/25/19 Disposition: TRANSFER TO [facility] Reason for Admission: Hematochezia - Problems (1) Exacerbation of Crohn's disease Status: Acute Qualifiers: Digestive disease complication type: other complication Qualified Code(s): K50.918 - Crohn's disease, unspecified, with other complication (2) Sigmoid volvulus Status: Acute (3) Chest pain, rule out acute myocardial infarction Status: Acute Brief History of Present Illness: This is a 59-year-old female who has a history of Crohn's disease. She follows up with Gastroenterology, Dr. Lawson. She also follows up with Dr. Modi at [facility]. Patient has not seen any bloody stools. She has been admitted for prior colitis episodes. There was concern that patient had a exacerbation of Crohn's disease. Patient was to get transfer to [facility] but after evaluation by our local surgery team decision was made to keep patient here and possible transfer in a.m. if she is still feeling weak. Hospital Course: Patient was transferred to [facility] for higher level of care. Vital Signs/Physical Exam: Temp Pulse Resp BP Pulse Ox 98.1 F 80 16 97/62 96 07/26/19 00:20 07/26/19 00:20 07/26/19 00:20 07/26/19 00:20 07/26/19 00:20 General: Alert, In no apparent distress, Oriented x3 Laboratory Data at Discharge: WBC 6.9 K/uL (4.3-10.9) D 07/25/19 05:20 Hgb 11.7 g/dL (12.0-15.0) L 07/25/19 05:20 Hct 35.7 % (36.0-45.0) L 07/25/19 05:20 Plt Count 418 K/uL (152-406) H 07/25/19 05:20 PT 13.1 SECONDS (9.5-12.5) H 07/25/19 05:20 INR 1.11 07/25/19 05:20 APTT 25.1 SECONDS (24.3-36.9) 07/25/19 05:20 Sodium 141 mmol/L (136-145) 07/25/19 05:20 Potassium 3.6 mmol/L (3.5-5.1) 07/25/19 05:20 BUN 8 mg/dL (7-18) 07/25/19 05:20 Creatinine 0.63 mg/dL (0.55-1.3) 07/25/19 05:20 Glucose 137 mg/dL (74-106) H 07/25/19 05:20 Phosphorus 3.8 mg/dL (2.5-4.9) 07/25/19 05:20 Magnesium 2.1 mg/dL (1.8-2.4) 07/25/19 05:20 Total Bilirubin 0.2 mg/dL (0.2-1.0) 07/25/19 05:20 AST 11 U/L (15-37) L 07/25/19 05:20 ALT 10 U/L (12-78) L 07/25/19 05:20 Alkaline Phosphatase 35 U/L (45-117) L 07/25/19 05:20 Lipase 73 U/L (73-393) 07/25/19 05:20 Home Medications: Dexlansoprazole [Kapidex] 1 cap PO DAILY 10/31/18 Linaclotide [Linzess] 1 cap PO DAILY 10/31/18 Mesalamine [Pentasa*] 4 cap PO DAILY 10/31/18 azaTHIOprine [Azathioprine] 2 tab PO DAILY 10/31/18 ALPRAZolam [Xanax*] 0.25 mg PO TIDP PRN tab 11/02/18 Aspirin Tab [Zion Aspirin*] 325 mg PO DAILY tab 11/02/18 Atorvastatin Calcium [Lipitor*] 40 mg PO BEDTIME tab 11/02/18 Clopidogrel Bisulfate [Plavix*] 75 mg PO DAILY tablet 11/02/18 Enoxaparin Sodium [Lovenox 60 MG INJ*] 50 mg SQ Q12H syr 11/02/18 Metoprolol Tartrate [Lopressor*] 50 mg PO BID tab 11/02/18 Morphine [Morphine Sulfate*] 4 mg IV Q4HP PRN syr 11/02/18 Ondansetron [Zofran*] 4 mg IV Q6HP PRN vial 11/02/18 Pharmacy Consult 1 ea XX DAILYPRN PRN each 11/02/18 Patient Discharge Instructions: Transfer to [facility] Diet: NPO Activity: Bedrest Time spent managing pt's care (in minutes): 25
== END 2019-07-25 17:00 | disposition short-term general hospital (02) | DRG 385 ==
LOC: ER 16:37 → ERHOLD 07-25 01:19
PROVIDERS: ADMIT Hospitalist; ATTEND Hospitalist
DX: K50.90 Crohn's disease, unspecified, without complications (principal); K56.2 Volvulus; I25.10 Atherosclerotic heart disease of native coronary artery without angina pectoris; R07.9 Chest pain, unspecified; Z88.0 Allergy status to penicillin; Z90.49 Acquired absence of other specified parts of digestive tract
CPT/HCPCS: 36415; 74019; 74177; 80048; 80053; 80076; 81003; 83605; 83690; 83735; 84100; 85025; 85610; 85730; 96365; 96368; 96375; 99285; J0694; J0744; J1170; J1650; J2405; J3010; J7030; Q9967

== ENCOUNTER 2019-08-24 06:32 | Day surgery (SDC) | payer OTHER ==
[2019-08-24] MEDS ORDERED: Ringers Lactate 1,000 ML IV ONE (06:46)
[2019-08-24] MEDS ORDERED: PROPOFOL 200 MG/20 ML VIAL IV ONE (07:33)
[2019-08-24] MEDS ORDERED: LIDOCAINE 1% MPF 5 ML VIAL ONE (07:33)
[2019-08-24] MEDS ORDERED: GLYCOPYRROLATE 0.2 MG/ML SYR ONE (07:36)
--- NOTE | 2019-08-24 08:27 | ENDO RPT ---
[address], [address] COLONOSCOPY PROCEDURE REPORT EXAM DATE: 08/24/2019 PATIENT NAME: Lola Elliott MR #: [id number] BIRTHDATE: 1960 ATTENDING: Nimesh Lawson Dr STATUS: outpatient [facility] GATHERER: Haleigh Dobson RN and Rocio Suero INDICATIONS: The patient is a 59 yr old Female here for a colonoscopy due to follow-up of Crohn's disease, recent small bowel obstruction, history of polyps, abdominal pain, change in bowel habits, and unexplained chronic diarrhea PROCEDURE PERFORMED: Colonoscopy with biopsy MEDICATIONS: Per Anesthesia. ESTIMATED BLOOD LOSS: None CONSENT: The patient understands the risks and benefits of the procedure and understands that these risks include, but are not limited to: sedation, allergic reaction, infection, perforation and/or bleeding. Alternative means of evaluation and treatment include, among others: physical exam, x-rays, and/or surgical intervention. The patient elects to proceed with this endoscopic procedure. DESCRIPTION OF PROCEDURE: During intra-op preparation period all mechanical medical equipment was checked for proper function. Hand hygiene and appropriate measures for infection prevention was taken. Procedure, possible complications, alternatives including, but not limited to possibility of bleeding, perforation, tear, infection, sepsis, need for surgery, need for blood transfusion, were explained to the patient. After the risks, benefits and alternatives of the procedure were thoroughly explained, Informed consent was verified, confirmed and timeout was successfully executed by the treatment team. The patient was placed in the left lateral position. A digital rectal exam was performed and revealed no abnormalities of the rectum. After appropriate level of anesthesia, the scope was passed. The [id number] ([id number]) endoscope was introduced through the anus and advanced to the ileum. The quality of the prep was good. The instrument was then slowly withdrawn as the colon was fully examined. Scope withdrawal time was 8 minutes. COLON FINDINGS: There was evidence of a end-to-side and normal appearing prior surgical anastomosis in the transverse colon. Random biopsies of the colon and rectum obtained with history Crohn's disease. Small internal hemorrhoids were found. Retroflexed views revealed small hemorrhoids. The scope was then completely withdrawn from the patient and the procedure terminated. ADVERSE EVENTS: There were no complications. IMPRESSIONS: 1. Surgical anastomosis in the transverse colon 2. Random biopsies of the colon and rectum obtained with history Crohn's disease 3. Small internal hemorrhoids 4. Intubation to terminal ileum RECOMMENDATIONS: 1. await biopsy results 2. continue IBD / Crohn's disease medications RECALL: Return in 1 year(s) for Colonoscopy. Nimesh Lawson Dr eSigned: Nimesh Lawson Dr 08/24/2019 8:26 AM cc: Praful Pardo CPT CODES: ICD9 CODES: PATIENT NAME: Lola Elliott MR#: [id number]
[2019-08-24 09:04] VITALS: O2SAT 100
[2019-08-24 09:06] VITALS: BP 111/60; TEMP 97.5
== END 2019-08-24 08:55 | disposition home or self-care (01) ==
LOC: OR 06:32
PROVIDERS: ATTEND Internal Medicine Gastroenterology
PROC: 0DBE8ZX Excision of Large Intestine, Via Natural or Artificial Opening Endoscopic, Diagnostic (ICD-10-PCS; 2019-08-24)
PROC: 0DBP8ZX Excision of Rectum, Via Natural or Artificial Opening Endoscopic, Diagnostic (ICD-10-PCS; principal; 2019-08-24 07:30)
DX: K50.90 Crohn's disease, unspecified, without complications (principal); K64.8 Other hemorrhoids; K21.9 Gastro-esophageal reflux disease without esophagitis; I25.10 Atherosclerotic heart disease of native coronary artery without angina pectoris; I25.2 Old myocardial infarction; F41.9 Anxiety disorder, unspecified; Z88.0 Allergy status to penicillin; Z79.82 Long term (current) use of aspirin; Z79.02 Long term (current) use of antithrombotics/antiplatelets; Z82.49 Family history of ischemic heart disease and other diseases of the circulatory system
CPT/HCPCS: 88305; 45380; J2704; J7120

== ENCOUNTER 2020-08-01 20:25 | Emergency (ER) | payer OTHER ==
--- OUTSIDE RECORDS SUMMARY | 2020-08-01 20:28 | XMS REPORT | Clinical Summary ---
:1960 Author Organization [facility] Address [address] [place] [address] Care Team Providers Name Role Phone Edward Lawson MD Primary Care Provider Allergies Active Allergy Reactions Severity Noted Date Comments Penicillins Rash, Swelling Low 11/02/2018 Medications Medication Sig Dispensed Refills Start End Date Status Date loratadine Take 10 mg by 0 Activ e (CLARITIN) 10 mg mouth daily tablet as needed for allergies. azaTHIOprine Take 100 mg 0 Activ e (IMURAN) 50 mg by mouth tablet daily. mesalamine (PENTASA) Take 2,000 mg 0 Active 500 MG CR capsule by mouth daily. linaCLOtide Take 145 mcg 0 Activ e (LINZESS) 145 mcg by mouth capsule daily as needed. aspirin (ECOTRIN) 81 Take 81 mg by 0 Active MG enteric coated mouth daily. tablet dexlansoprazole Take 60 mg by 0 Active (DEXILANT) 60 mg mouth daily. capsule ibandronate (BONIVA) Take 150 mg by mouth every 3 0 (thirty) days. On the of each month 0 Active 150 mg tablet Take in AM with glass of prashant er prior to food, don't lie down for 30 minutes. clopidogrel (PLAVIX) Take 75 mg by 0 06/21 Discontinued 75 mg tablet mouth daily. 20 budesonide EC Take 3 90 capsule 0 08/28/20 Expir ed (ENTOCORT EC) 3 mg capsules (07 19 19 24 hr capsule mg total) by mouth daily for 30 days. metroNIDAZOLE Take 500 mg 0 06/25/20 Disc ontinued (FLAGYL) 500 MG by mouth 3 0 20 (St op Taking at tablet (three) times Discha rge) a day. For 14 days 06/16/20-06/11 11/29 ciprofloxacin Take 500 mg 0 06/25/20 Disc ontinued (CIPRO) 500 MG by mouth 2 0 20 (Sto p Taking at tablet (two) times a Discha rge) day. 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 Resolved Problems Problem Noted Date Resolved Date Crohn's disease of small intestine without complication 06/1006/25/2020 Small bowel obstruction 06/20/2020 06/25/2020 Encounters Date Type Specialty Care Team Description 07/05/2020 Telephone Gastroenterology Harjinder Garcia MA 07/05/2020 Documentation General Surgery Lucretia Bhatti NP-C 07/05/2020 Documentation Gastroenterology Hui Gonzales LVN 07/04/2020 Telephone Gastroenterology Maite Stevenson DO 06/30/2020 Telephone Gastroenterology Maite Stevenson DO 06/29/2020 Telephone Gastroenterology Kyrie Stevensoncartoi noma (HCC) Maite Crook DO (Primary Dx) 06/23/2020 Surgery Gastroenterology Mirela Mendez COLONOSCOPY W/ NITHIN Ferrer MD BX AND WIRE-JONATHAN DED DILATATION 06/23/2020 Anesthesia Event Gastroenterology Alivia Tavera MD Crawley, Teri, NP 06/20/2020 Hospital Encounter General Surgery Shamika Muniz Small bowel - MD Jc obstruction (HCC) 06/25/2020 Mahesh Muniz (Primary Dx) MD Kevin 06/20/2020 Emergency Emergency Medicine Shamika Muniz MD after 08/01/2019 Family History Medical History Relation Name Comments Heart disease Father Relation Name Status Comments Father Social History Tobacco Use Types Packs/Day Years Used Date Never Smoker Smokeless Tobacco: Never Used Alcohol Use Drinks/Week oz/Week Comments Never Alcohol Habits Answer Date Recorded How often do you have a drink containing alcohol? Never 06/23/2020 How many drinks containing alcohol do you have on a typical Not asked day when you are drinking? How often do you have six or more drinks on one occasion? No t asked Sex Assigned at Date Recorded Not on file Last Filed Vital Signs Vital Sign Reading Time Taken Comments Blood Pressure 111/66 06/25/2020 11:48 AM CDT Pulse 87 06/25/2020 11:48 AM CDT Temperature 36.7 C (98.1 F) 06/25/2020 11:48 AM CDT Respiratory Rate 20 06/25/2020 11:48 AM CDT Oxygen Saturation 95% 06/25/2020 11:48 AM CDT Inhaled Oxygen Concentration - - Weight 49.9 kg (110 lb) 06/21/2020 12:38 AM CDT Height 154.9 cm (5' 1") 06/21/2020 12:38 AM CDT Body Mass Index 20.78 06/21/2020 12:38 AM CDT Plan of Treatment Health Maintenance Due Date Last Done Comments CERVICAL CANCER SCREENING 02/07/1980 BREAST CANCER SCREENING 2009 COLONOSCOPY SCREENING 2009 SHINGLES VACCINES (#1) 2009 INFLUENZA VACCINE 07/11/2020 Implants Implanted Type Area Estate Administrator Device Shelf Model / Identifier Expiration Serial / Date Lot Dilator Geraldo Espgl Pylrc Clnc Wire Guided [id number] 12 -15mm - [id number] Surgical N/A: N/A BS ENDOSCOPY [id number] / Implanted: 06/23/2020 at [facility] (Quantity not on file) Implants; / Expanders; Extenders; Surgical Wires Procedures Procedure Name Priority Date/Time Associated Comments Diagnosis ESTIMATED GFR Routine 06/25/2020 4:00 Results fo r this AM CDT procedure are i n the results section. BASIC METABOLIC PANEL Routine 06/25/2020 4:00 Re sults for this AM CDT procedure are i n the results section. ESTIMATED GFR Routine 06/24/2020 4:00 Results fo r this AM CDT procedure are i n the results section. MAGNESIUM LEVEL Routine 06/24/2020 4:00 Results for this AM CDT procedure are i n the results section. BASIC METABOLIC PANEL Routine 06/24/2020 4:00 Re sults for this AM CDT procedure are i n the results section. SURGICAL PATHOLOGY Routine 06/23/2020 10:10 Resul ts for this REQUEST AM CDT procedure are i n the results section. COLONOSCOPY 06/23/2020 7:59 Small bowel AM CDT obstruction (HCC) ESTIMATED GFR Routine 06/23/2020 4:00 Results fo r this AM CDT procedure are i n the results section. C-REACTIVE PROTEIN Routine 06/23/2020 4:00 Resul ts for this AM CDT procedure are i n the results section. BASIC METABOLIC PANEL Routine 06/23/2020 4:00 Re sults for this AM CDT procedure are i n the results section. SEDIMENTATION RATE Routine 06/23/2020 3:45 Resul ts for this AM CDT procedure are i n the results section. ECG PRE/POST OP Routine 06/22/2020 8:40 Results for this PM CDT procedure are i n the results section. XR ABDOMEN 1 VW Routine 06/22/2020 9:06 Results for this PORTABLE AM CDT procedure are i n the results section. ESTIMATED GFR Routine 06/22/2020 4:00 Results fo r this AM CDT procedure are i n the results section. MAGNESIUM LEVEL Routine 06/22/2020 4:00 Results for this AM CDT procedure are i n the results section. BASIC METABOLIC PANEL Routine 06/22/2020 4:00 Re sults for this AM CDT procedure are i n the results section. HC COMPLETE BLD COUNT Routine 06/21/2020 5:00 Re sults for this W/AUTO DIFF AM CDT procedure are i n the results section. ESTIMATED GFR Routine 06/21/2020 4:00 Results fo r this AM CDT procedure are i n the results section. BASIC METABOLIC PANEL Routine 06/21/2020 4:00 Re sults for this AM CDT procedure are i n the results section. COVID-19 QUALITATIVE STAT 06/21/2020 12:05 Res ults for this PCR AM CDT procedure are i n the results section. XR ABDOMEN 1 VW STAT 06/20/2020 11:27 Results for this PM CDT procedure are i n the results section. ESTIMATED GFR STAT 06/20/2020 9:29 Results fo r this PM CDT procedure are i n the results section. LACTIC ACID LEVEL STAT 06/20/2020 9:29 Result s for this PM CDT procedure are i n the results section. COMPREHENSIVE STAT 06/20/2020 9:29 Results fo r this METABOLIC PANEL PM CDT procedure ar e in the results section. HC COMPLETE BLD COUNT STAT 06/20/2020 9:29 Re sults for this W/AUTO DIFF PM CDT procedure are i n the results section. CT ABD/PELVIC EXTERNAL STAT 06/20/2020 4:40 R esults for this STUDY PM CDT procedure are i n the results section. after 08/01/2019 Results Estimated GFR (06/25/2020 4:00 AM CDT)Only the most recent of6 resultswithin the time period is included. Estimated GFR >=90 mL/min/1.73 [facility] Comment: m2 HOSPITAL Catergory Units Interpretation G1 >=90 Normal or high G2 60-89 Mildly decreased G3a 45-59 Mildly to moderately decreas ed G3b 30-44 Moderately to severely decre ased G4 15-29 Severely decreased G5 <15 Kidney failure The eGFR was calculated using the Chronic Kidney Disea se Epidemiology Collaboration (CKD-EPI) equation. Interpretation is based on recommendations of the National Kidney Foundation-Kidney Disease Outcomes Jp lity Initiative (NKF-KDOQI) published in 2014. Specimen Performing Organization Address City/[facility] Phon e Number [facility] DEPARTMENT OF PATHOLOGY AND [address] [place] [phone] GENOMIC MEDICINE [address] [address] Basic metabolic panel (06/25/2020 4:00 AM CDT)Only the most recent of5 results within the time period is included. Pathologist Sig nature Sodium 140 135 - 148 mEq/L [facility] L Potassium 4.0 3.5 - 5.0 mEq/L [facility] L Chloride 108 98 - 112 mEq/L [facility] CO2 23 (L) 24 - 31 mEq/L [facility] Anion gap 9@ANIO 7 - 15 mEq/L [facility] BUN 4 (L) 8 - 23 mg/dL [facility] Creatinine 0.64 0.50 - 0.90 mg/dL [facility] Glucose 80 65 - 99 mg/dL [facility] Calcium 8.5 (L) 8.8 - 10.2 mg/dL [facility] Specimen Blood Performing Organization Address City/[facility] Phon e Number [facility] DEPARTMENT OF PATHOLOGY AND [address] [place] [address] [phone] [address] Magnesium level (06/24/2020 4:00 AM CDT)Only the most recent of2 resultswithin the time period is included. Pathologist Sig nature Magnesium 2.2 1.6 - 2.4 mg/dL [facility] L Specimen Blood Performing Organization Address [facility] Phon e Number [facility] DEPARTMENT OF PATHOLOGY AND [address] [place], [place] [phone] Surgical pathology request (06/23/2020 10:10 AM CDT) [facility] DEPARTMENT OF PATHOLOGY AND GENOMIC MEDICINE Surgical pathology See link below [facility] DEPARTMENT OF report for PDF Lab PATHOLOGY AND Report GENOMIC MEDICINE Result status This is Final [facility] DEPARTMENT OF Report for PATHOLOGY AND [id number] GENOMIC MEDICINE Specimen Performing Organization Address [facility] Phon e Number [facility] DEPARTMENT OF PATHOLOGY AND [address] [place], [place] [phone] 0 [facility] C-reactive protein (06/23/2020 4:00 AM CDT) Pathologist Sig nature CRP 0.69 (H) 0.00 - 0.50 mg/dL [facility] BRIGID Specimen Blood Performing Organization Address [facility] Phon e Number [facility] DEPARTMENT OF PATHOLOGY AND [address] [place], [place] [address] [address] [address] Sedimentation rate (06/23/2020 3:45 AM CDT) Pathologist Sig nature Sedimentation rate 17 0 - 20 mm/hr [facility] Specimen Blood Performing Organization Address City/[facility] Phon e Number [facility] DEPARTMENT OF PATHOLOGY AND [address] [place] [address] [address] ECG Pre/Post Op (06/22/2020 8:40 PM CDT) Pathologist Sig nature Ventricular rate 92 [facility] Atrial rate 92 [facility] AK interval 146 [facility] QRSD interval 74 [facility] QT interval 378 [facility] QTC interval 467 [facility] P axis 1 51 [facility] QRS axis 1 35 [facility] MUSE T wave axis 36 [facility] MUSE EKG impression Normal sinus [facility] MUSE rhythm-Septal infarct , age undetermined-Abnormal ECG-No previous ECGs available-Electronicall y Signed By Elroy ISRAEL, Bradford Frankel ([id number]) on 06/23/2020 10:36:31 AM Specimen Narrative Performed At This result has an attachment that is no t available. Performing Organization Address [facility] Phon e Number [facility] MUSE [address] [place] [address] XR Abdomen 1 Vw Portable (06/22/2020 9:06 AM CDT) Specimen Narrative Performed At EXAMINATION: XR ABDOMEN 1 VW PORTABLE [facility] CLINICAL HISTORY: sbo f u. COMPARISON: 06/20/2020 IMPRESSION: NG tube remains in the gastric fundus. S tomach is nondistended. Increased small bowel dilatation measuring up to 6.2 cm suggesting high-grade SBO. No gross pneumatosis or free air. [facility]-[id number] Procedure Note Hm Interface, Radiology Results Incoming - 06/22/2020 9:15 AM CDT EXAMINATION: XR ABDOMEN 1 VW PORTABLE CLINICAL HISTORY: sbo f u. COMPARISON: 06/20/2020 IMPRESSION: NG tube remains in the gastric fundus. S tomach is nondistended. Increased small bowel dilatation measur ing up to 6.2 cm suggesting high-grade SBO. No gross pneumatosis or free air. [facility]-[id number] Performing Organization Address [facility] Phon e Number [facility] [address] [place] [address] CBC with platelet and differential (06/21/2020 5:00 AM CDT)Only the most recent of2 resultswithin the time period is included. WBC 5.65 4.50 - 11.00 [facility] RBC 3.71 (L) 4.20 - 5.50 [facility] HGB 11.3 (L) 12.0 - 16.0 [facility] g/dL [facility] HCT 35.3 (L) 37.0 - 47.0 % [facility] MCV 95.1 82.0 - 100.0 [facility] MCH 30.5 27.0 - 34.0 pg [facility] MCHC 32.0 31.0 - 37.0 [facility] g/dL HOSPITAL RDW - SD 56.2 (H) 37.0 - 55.0 fL [facility] MPV 9.0 8.8 - 13.2 fL [facility] Platelet count 492 (H) 150 - 400 k/uL [facility] Nucleated RBC 0.00 /100 WBC [facility] Neutrophils 64.6 39.0 - 69.0 % [facility] Lymphocytes 21.1 (L) 25.0 - 45.0 % [facility] Monocytes 10.1 (H) 0.0 - 10.0 % [facility] Eosinophils 3.0 0.0 - 5.0 % [facility] Basophils 0.7 0.0 - 1.0 % [facility] Immature granulocytes 0.5Comment: 0.0 - 1.0 % [facility] "[facility] granulocytes" (promyelocytes , myelocytes, metamyelocytes ) Specimen Blood Performing Organization Address [facility] Phon e Number [facility] DEPARTMENT OF PATHOLOGY AND [address] [place] [address] COVID-19 qualitative PCR (06/21/2020 12:05 AM CDT) Interpretation Negative results do not prec lude 2019-nCoV infection and should not be used as the sole basis for treatment or other patient management decisions. Negative results must be combined with clinical observations, patient history, and epidemiological [place] information. [facility] COVID-19 qualitative Not-Detected Not-Detecte [place] PCR result d [facility] COVID19 qualitative See link below for [place] PCR PDF Lab WORSHIP ReportComment: Case HOSPITAL Number: [id number] Specimen Nasopharyngeal swab Performing Organization Address [facility] Phon e Number [facility] DEPARTMENT OF PATHOLOGY AND [address] [place] [address] XR Abdomen 1 Vw (06/20/2020 11:27 PM CDT) Specimen Narrative Performed At EXAMINATION: XR ABDOMEN 1 VW [facility] CLINICAL HISTORY: Nausea vomiting COMPARISON: External CT abdomen pelvis 06/20/2020 IMPRESSION: Gastric tube tip overlies the gastric fu ndus. Multiple dilated loops of small bowel consistent with small bowel obstruction seen on same-day CT. No free air. Punctate high density material throughout the stomach and proximal small bowel like represents ingested material/medication. Vi sualized lung bases are free of acute disease. Regional skeletal str uctures are within normal limits for age. [facility]-[id number] Dictated and approved by radiology rn/fellow: Todd Altamirano M.D. I, Michele Vences M.D., personally reviewed the image s and resident's/fellow's findings and agree with the final report. Procedure Note Hm Interface, Radiology Results Incoming - 06/20/2020 11:48 PM CDT EXAMINATION: XR ABDOMEN 1 VW CLINICAL HISTORY: Nausea vomiting COMPARISON: External CT abdomen pelvis 06/20/2020 IMPRESSION: Gastric tube tip overlies the gastric fu ndus. Multiple dilated loops of small bowel co nsistent with small bowel obstruction seen on same-day CT. No free air. Punctate high density material throughou t the stomach and proximal small bowel like represents ingested material/medication. Visualized lung bases are free of acute disease. Regional skeletal structures are within normal limits for age. [facility]-[id number] Dictated and approved by radiology resid ent/fellow: Jodi Altamirano M.D. I, Michele Vences M.D., personally revi ewed the images and resident's/fellow's findings and agree with the final report. Performing Organization Address City/State/ZIP Code Phon e Number [facility] [address] [place] [address] Lactic acid level (06/20/2020 9:29 PM CDT) Pathologist Sig nature Lactic acid 1.0 0.5 - 2.2 mmol/L [facility] AL Specimen Blood Performing Organization Address City/State/ZIP Code Phon e Number [facility] DEPARTMENT OF PATHOLOGY AND [address] [place] [phone] GENOMIC MEDICINE [address] [address] Comprehensive metabolic panel (06/20/2020 9:29 PM CDT) Sodium 136 135 - 148 [facility] mEq/L [facility] Potassium 3.6 3.5 - 5.0 [facility] mEq/L [facility] Chloride 96 (L) 98 - 112 [facility] mEq/L HOSPITAL CO2 24 24 - 31 mEq/L [facility] Anion gap 16@ANIO (H) 7 - 15 mEq/L [facility] BUN 8 8 - 23 mg/dL [facility] Creatinine 0.76 0.50 - 0.90 [facility] mg/dL HOSPITAL Glucose 121 (H) 65 - 99 mg/dL [facility] Calcium 9.5 8.8 - 10.2 [facility] mg/dL [facility] Protein 6.6 6.3 - 8.3 [facility] Comment: g/dL HOSPITAL - 4.6-7.0 g/dL 1 week 4.4-7.6 g/dL 7 months-1year 5.1-7.3 g/dL 1-2 years 5.6-7.5 g/dL >3 years 6.0-8.0 g/dL 18-150 6.3-8.3 g/dL Albumin 3.4 (L) 3.5 - 5.0 [facility] g/dL HOSPITAL A/G ratio 1.1 0.7 - 3.8 [facility] Alkaline phosphatase 51 35 - 104 U/L [facility] AST 23 10 - 35 U/L [facility] ALT 8 5 - 50 U/L [facility] Total bilirubin 0.3 0.0 - 1.2 [facility] mg/dL HOSPITAL Specimen Blood Performing Organization Address City/State/ZIP Code Phon e Number [facility] DEPARTMENT OF PATHOLOGY AND [address] [place] [phone] GENOMIC MEDICINE [address] [address] [address] Abd/Pelvic External Study (06/20/2020 4:40 PM CDT) Specimen Narrative Performed At This exam was not acquired at a [facility] t facility and has not been [facility] interpreted by a [facility] Provider. T he exam was imported into our imaging system. Performing Organization Address City/[facility]/ZIP [facility] Phon e Number [facility] [address] [place] [address] after 08/01/2019 Advance Directives For more information, please contact: [phone] Type Date Recorded Patient Director Of Finance Explanati on Advance Directives, Living Will 06/20/2020 9:47 PM and Medical Power of Grief Counsellor
--- OUTSIDE RECORDS SUMMARY | 2020-08-01 20:29 | XMS REPORT | Continuity of Care Document ---
:1960 Author Organization [employer] Care Team Providers Name Role Phone [employer] [facility] Unavailable Un available Problems Problem Status Onset Classification Date Comments Sourc e Date Reported INCISIONAL Active [facility] Crohn's Active Problem 09/23/2016 [facility] disease [facility] (disorder) Center Incisional Active Problem 09/23/2016 [facility] hernia [facility] (disorder) Center Medications Medication Details Route Status Patient Ordering Order Source Instructions Provider Date Hydromorphone 0.5 mg, Route: Inactive 09/21[facility] Radha IVP, Q5Min, 2015 Medical Dosing Weight Center 51.364, kg, PRN Pain Score 7-10, Start date: 09/20/16 18:30:00 MANAGER CAR, Duration: 4 doses or times, Stop date: Limited # of times Flumazenil 0.2 mg, Route: Inactive 09/21[facility] [place], PRN, Dosing 2015 Medical Weight 51.364, Center kg, PRN Benzodiazepine Reversal, Initial dose, Start date: 09/20/16 18:30:00 MANAGER CAR, Duration: 30 day, Stop date: 10/20/16 18:29:00 MANAGER CAR Albuterol 0.83 2.49 mg, Route: Inactive 09/21[facility] MG/ML Inhalant NEB, Q20Min, 2015 Medi patrick Solution Dosing Weight Center 51.364, kg, PRN Wheezing, Priority: STAT, Start date: 09/20/16 18:30:00 MANAGER CAR, Duration: 30 day, Stop date: 10/20/16 18:29:00 MANAGER CAR Naloxone 0.4 mg, Route: Inactive 09/21[facility] [place] IVP, Q2MIN, 2015 Medical Dosing Weight Center 51.364, kg, PRN Narcotic Reversal, Start date: 09/20/16 18:30:00 MANAGER CAR, Duration: 8 doses or times, Stop date: Limited # of times Promethazine 6.25 mg, Route: Inactive 09/21[facility] [place] IVPB, ONCE, 2016 Medical Dosing Weight Center 51.364, kg, PRN Nausea & Vomiting, Start date: 09/20/16 18:30:00 MANAGER CAR Ondansetron 4 mg, Route: Inactive [place] IVP, ONCE, 2016 Medical Dosing Weight Center 51.364, kg, PRN Nausea & Vomiting, Start date: 09/20/16 18:30:00 MANAGER CAR Oxycodone 5 mg, Route: PO, Inactive [place] Drug form: TAB, 2016 Medical Q4H, Dosing Center Weight 51.364, kg, PRN Pain Score 4-6, Start date: 09/20/16 18:30:00 MANAGER CAR, Duration: 30 day, Stop date: 10/20/16 18:29:00 MANAGER CAR Hydralazine 10 mg, Route: Inactive [place] IVP, Q20Min, 2016 Medical Dosing Weight Center 51.364, kg, PRN Elevated BP, Start date: 09/20/16 18:30:00 MANAGER CAR, Duration: 2 doses or times, Stop date: Limited # of times Sodium Chloride 500 mL, Infuse Inactive [place] 0.154 MEQ/ML Over: 20 2015 Medical Injectable minutes, Route: Cente r Solution IV, ONCE, Dosing Weight 51.364 kg, Start date: 09/20/16 18:30:00 MANAGER CAR, Stop date: 09/20/16 18:30:00 MANAGER CAR Acetaminophen 325 2 tab, PO, Q4H, Active [place] [facility] / Hydrocodone PRN Pain Score 2016 Medical Bitartrate 5 MG 4-6, 0 Refill(s) Center Oral Tablet [[place] 5/325] Acetaminophen 325 2 tab, Route: No Longer [place] [facility] / Hydrocodone PO, Drug Form: Active 2016 Medical Bitartrate 5 MG TAB, Dosing Cent er Oral Tablet Weight 51.364, [[place] 5/325] kg, Q4H, PRN Pain Score 4-6, Start date: 09/20/16 17:58:00 MANAGER CAR, Duration: 30 day, Stop date: 10/20/16 17:57:00 MANAGER CAR Zofran Notes: (Same as: Inactive [place] Zofran) 2016 Medical MEDICATION WASTE Center Product Size: 4 mg Product Wasted: ___ mg Acetaminophen 325 1 tab, Route: No Longer [place] MG / Hydrocodone PO, Drug Form: Active 2015 Medical Bitartrate 5 MG TAB, Dosing Cent er Oral Tablet Weight 51.364, [[place] 5/325] kg, Q4H, PRN Pain Score 1-3, Start date: 09/20/16 17:57:00 MANAGER CAR, Duration: 30 day, Stop date: 10/20/16 17:56:00 MANAGER CAR bupivacaine Notes: (Same as: No Longer [place] liposome Exparel) Active 2015 Medical NOT FOR IV Center use Postoperative analgesia: Infiltration (local): Dose is based on surgical site and volume required to cover the area (in general, the maximum total dose is 266 mg). Bunionectomy: 7 mL into the tissues surrounding the osteotomy and 1 mL into the subcutaneous tissue of the surgical site (total dose = 8 mL [106 mg]) Hemorrhoidectomy : 30 mL (20 mL vial diluted with 10 mL NS) divided and administered as 6 injections of 5 mL each (total dose = 30 mL [266 mg]) vancomycin 2001 mg: infuse Inactive [place] over 2.5 hours 2016 Medical MEDICATION Center WASTE Product Size: 1000 mg Product Wasted: ___ mg Ibuprofen 200 MG 400 mg = 2 tab, Active [place] Oral Tablet PO, Q4H, PRN 2016 Medical [Advil] Pain, # 120 tab, Center 0 Refill(s) dexlansoprazole 60 mg = 1 cap, Active [place] 60 MG Enteric PO, Daily, # 30 2016 Me dical Coated Capsule day, 1 Refill(s) [place] [Dexilant] Dexilant PO, Daily, 0 Active [facility] Refill(s) 2016 [facility] Pentasa 1,000 mg, PO, Active [facility] QID, 0 Refill(s) 2016 [facility] Imuran Daily, 0 Active [facility] Refill(s) 2016 [facility] Allergies, Adverse Reactions, Alerts Substance Category Reaction Severity Reaction Status Date Comments S ource type Reported penicillins Assertion Drug Active [facility] Immunizations No Data Provided for This Section Results Order Name Results Value Reference Date Interpretation Comments Asiya rce [place] BLOOD BANK Antibody Negative [facility] RESULTS Scrn (09/20/16 2:30 PM) [address] [facility] BLOOD BANK ABO/Rh O NEG [facility] RESULTS 2016 [facility] Center Pathology Reports No Data Provided for This Section Diagnostic Reports No Data Provided for This Section Consultation Notes No Data Provided for This Section Discharge Summaries No Data Provided for This Section History and Physicals No Data Provided for This Section Vital Signs Vital Sign Value Date Comments Source Respitory Rate 12 09/21/2016 [facility] Systolic (mm Hg) 125 09/21/2016 [facility] Center Diastolic (mm Hg) 58 09/21/2016 [facility] Respitory Rate 15 09/21/2016 [facility] [place] [facility] Systolic (mm Hg) 119 09/21/2016 [facility] Center Diastolic (mm Hg) 57 09/21/2016 [facility] Systolic (mm Hg) 118 09/21/2016 [facility] d[facility] Center Diastolic (mm Hg) 57 09/21/2016 [facility] Respitory Rate 12 09/21/2016 [facility] [place] [facility] Heart Rate 62 09/20/2016 [facility] Heart Rate 65 09/16/2016 [facility] Height 154.94 cm 09/16/2016 [facility] Weight 51.364 09/16/2016 [facility] BMI Calculated 21.4 09/16/2016 [facility] [place] [facility] Encounters Location Location Encounter Encounter Reason Attending ADM [place] Stat us Source Details Type Number For Provider Date Date Visit [id number] Kostas Leon 09/20 09/21 [facility] [place] [facility] [place] /2015 [facility] Procedures Procedure Code Date Perfomer Comments Source Resection<sup>1< [id number] of the colon [place] as /sup> 11/2015 [facility] Assessment and Plan No Data Provided for This Section Plan of Care No Data Provided for This Section Social History Social History Date Source Social History TypeResponse 09/16/2016 [facility] Smoking Status Never smoker; Exposure to Tobacco Smoke None; Cigarette Smoking Last 365 Days No; Reg Smoking Cessation Counseling No Family History No Data Provided for This Section Advance Directives No Data Provided for This Section Functional Status No Data Provided for This Section
--- OUTSIDE RECORDS SUMMARY | 2020-08-01 20:29 | XMS REPORT | Clinical Summary ---
:1960 Author Organization [facility] Address [address] [place] [id number] Care Team Providers Name Role Phone Unavailable [...] 145 mcg 0 Active by mouth daily. ticagrelor (BRILINTA) Take 1 tablet 60 tablet 0 11/03/2018 Active 90 mg Tab tablet (90 mg total) by mouth 2 (two) times daily. aspirin 81 MG chewable Take 1 tablet 30 tablet 11 11/04/2018 tablet (81 mg total) by mouth daily. atorvastatin (LIPITOR) Take 1 tablet 30 tablet 0 11/03/2018 80 MG tablet (80 mg total) by mouth nightly. metoprolol (LOPRESSOR) Take 1 tablet 60 tablet 0 11/03/2018 25 MG tablet (25 mg total) by mouth 2 (two) times daily. Active Problems Problem Noted Date Hematoma 11/06/2018 Crohn's colitis 11/03/2018 HLD (hyperlipidemia) 11/03/2018 GERD (gastroesophageal reflux disease) 11/03/2018 NSTEMI (non-ST elevated myocardial infarction) 018 Social History Tobacco Use Types Packs/Day Years Used Date Never Assessed Sex Assigned at Date Recorded Not on file Job Start Date Occupation Industry Not on file Not on file Not on file Travel History Travel Start Travel End No recent travel history available. Last Filed Vital Signs Not on file Plan of Treatment Health Maintenance Due Date Last Done Comments BREAST CANCER SCREENING 1960 COLON CANCER SCREENING COLONOSCOPY 1960 CERVICAL CANCER SCREENING PAP ONLY (Age 0302/07/1981 20-65) INFLUENZA VACCINE (#1) 2020 LIPID PANEL 11/02/2023 11/02/2018, 12/20/2015 Implants Implanted Type Area Strategy Specialist Device Shelf Model / Identifier Expiration Serial / Date Lot [employer] N/A: [place] [id number] 06/07/2020 [id number] / Implanted: Qty: 1 on 11/02/2018 by Agusto Olson MD [employer] / [id number] Results Not on fileafter 08/01/2019 Insurance Payer Benefit Plan / Group Subscriber ID Type Phone A ddress [employer] - MGD CARE CIG[employer] HMO/POS/OPEN ACCESS xxxxxxxxxxx HMO/POS Advance Directives For more information, please contact:[address] [phone] Code Status Date Activated Date Inactivated Comments Full Code 11/02/2018 2:51 PM This code status was determined by: Patient
--- OUTSIDE RECORDS SUMMARY | 2020-08-01 20:31 | XMS REPORT | Summary of Care ---
:1960 Author Organization [facility] [place] [address] Care Team Providers Name Role Phone Unavailable Primary Care Provider Unavailable Reason for Visit Reason Comments Cardiology Follow-up Encounter Details Date Type Department Care Team Description 07/13/2020 Office Visit [facility] Agusto [facility] [place] [facility] [address] [facility] [id number] [place] [address] [place], [place] [id number] Allergies Active Allergy Reactions Severity Noted Date Comments Penicillins Rash 11/12/2018 documented as of this encounter (statuses as of 07/13/2020) Medications Medication Sig Dispensed Refills Start Date End Date Status Mesalamine (PENTASA Take 125 0 Active OR)Indications: 500 mg by mg in total mouth four times daily. Dexlansoprazole 60 MG Take 60 mg 0 Active CPDR by mouth daily. azathioprine (IMURAN) Take 50 mg 0 Active 50 MG by mouth. tabletIndications: Take 2 tablets daily ibandronate (BONIVA) Take 150 0 Active 150 MG tablet mg by mouth every 30 days. aspirin 81 MG tablet Take 81 mg 0 Active by mouth daily. clopidogrel (PLAVIX) Take 75 mg 0 07/13/20 2 Discontinued 75 MG tablet by mouth 0 (*Thera py daily. completed) documented as of this encounter (statuses as of 07/13/2020) Active Problems Problem Noted Date Crohn's disease (HCCode) 12/14/2018 NSTEMI (non-ST elevated myocardial infarction) (HCCode ) 11/12/2018 Hematoma-right groin post procedure 11/12/2018 HLD (hyperlipidemia) 11/12/2018 Gastroesophageal reflux disease with esophagitis 11/12 Presence of drug-eluting stent in anterior descending branch of left 11/12/2018 coronary artery-LAD documented as of this encounter (statuses as of 07/13/2020) Social History Tobacco Use Types Packs/Day Years Used Date Never Smoker Smokeless Tobacco: Never Used Sex Assigned at Date Recorded Not on file documented as of this encounter Last Filed Vital Signs Vital Sign Reading Time Taken Comments Blood Pressure 118/68 07/13/2020 3:27 PM CDT Pulse 88 07/13/2020 3:25 PM CDT Temperature - - Respiratory Rate - - Oxygen Saturation - - Inhaled Oxygen Concentration - - Weight 49.4 kg (109 lb) 07/13/2020 3:25 PM CDT Height 152.4 cm (5') 07/13/2020 3:25 PM CDT Body Mass Index 21.29 07/13/2020 3:25 PM CDT documented in this encounter Progress Notes Agusto Olson MD - 07/13/2020 4:30 PM CDT Agusto Olson MD Office HP/Followup Today's Date: 07/13/2020 3:42 PM Lola Elliott is a 60 y.o. female patient. Date of : 1960 Referring MD: Praful Pardo MD (primary) Address: [address] [place] [address], [place] [address] [facility] Medical Rec#:[id number] Estimated body mass index is 20.95 kg/m as calculated from the following: Height as of this encounter: 1.549 m (5' 1"). Weight as of this encounter: 50.3 kg (110 lb 14.4 oz). Body surface area is 1.47 meters squared. 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 Elliott is a 58 yo female with PMH of Crohn disease s/p partial colectomy in 2016 and GERD on PPI with no previous cardiac history - who was transferred to [facility] for further evaluation and management of an NSTEMI. She was slightly agitated and upset due to logistics of her transfer and her care. She was in her usual state of health until the evening of 10/30. She was carrying a box down a flight of stairs - when she all of a sudden noticed severe shortness of breath and chest discomfort.The chest discomfort was a substernal pressure with radiation to her neck, back, jaw, and left shoulder. There was associated shortness of breath. The pain worsened with exertion and improved with rest. The pain was about an 8/10. The pain went away after about 15 minutes of rest - and she did not exert herself further. She thought that this could possibly be severe GERD - so she doubled up on her PPI. On 10/31/18- she had several other episodes of exertional, substernal chest pressure with associated shortness of breath. These episodes also improved with rest. She is unable to say if shesuffered from nausea/vomiting or diaphoresis. She presented to OSH with these complaints. EKG reportedly showed lateral T wave inversions - although I have been unable to review the EKGs as they were not sent with her. Her troponin was elevated to 0.53. She last had significant chest pain on the morning of 11/01 - she awoke from rest with substernal chest discomfort. She was transferred to [facility] for expedited catheterization. She denies any significant tobacco abuse. She denies history of hypertension, hyperlipidemia, or DM2. Her father of a heart attack in his80s. His first heart attack was in his 60s. She denies any significant drug or alcohol use. She denies any personal history of LA, CVA, arrhythmia, or heart failure. She takes imuran 100mg daily and mesalamine 2000mg daily for her Crohns disease.She takes linzess PRN for abdominal cramping and bloating. She takes dexlansoprazole 60mg daily for her GERD. She was given aspirin 325mg. She was started on plavix 75mg daily. Unclear if she received a loadingdose. She was started on atorvastatin 20mg qhs and metoprolol 25mg bid. Hospital Course: Ms. Elliott was transferred to [facility] on 11/02 for further evaluation and management of NSTEMI. She underwent cardiac catheterization which showed a proximal LAD lesion. She underwent PCI with good result. A 2.5 X20mm Synergy ABRAN was placed with excellent results. 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 She tolerated the procedure well. On 11/03, she had significant tenderness in her right groin. On my evaluation, there was evidence of a small hematoma. No bruit was noted. She has intact distal pulses without any evidence of ischemia. Duplex US was obtained to rule out a pseudoaneurysm?. Her hemoglobin was in the 12 range which was stable from her level from OSH. She did not have any further chest pain. US showed a hematoma without any evidence of pseudoaneurysm the next day. The femoral entry point appears to have been above the inguinal ligament thus the hematoma involves the anterior rectus sheath. Cardiac Risk assessment: Hypertension- no Hypercholesterol- no Obesity- no Postive Family History- yes Diabetes Mellitus- no Smoker- no RECURRENT DATABASE ANGIOGRAMS- TTE-DATE 11/03/18 LVEF 60 DATE 09/30/19 TMT Mibi Regaden TMT Mibi Minutes 6 %MHR 89 LVEF 77 Result neg Allergies: Allergies Allergen Reactions Penicillins Rash Past Medical History Past Medical History: Diagnosis [facility] 12[facility]14[facility]2018 Gastroesophageal reflux disease with esophagitis 11/12/2018 Hematoma-right groin post procedure 11/12/2018 NSTEMI (non-ST elevated myocardial infarction) ([facility]) 11/12/2018 Presence of drug-eluting stent in anterior descending branch of left coronary artery-LAD 11/12/2018 Surgical History: Past Surgical History: Procedure Laterality Date HX COLON SURGERY 12/05/2015 3 feet of colon removed HX HERNIA REPAIR 09/20/2016 Double Hernia Social History: Social History Socioeconomic History Marital status: Spouse name: Not on file Number of children: Not on file Years of education: Not on file Highest education level: Not on file Occupational History Not on file Social Needs Financial resource strain: Not on file Food insecurity Worry: Not on file Inability: Not on file Transportation needs Medical: Not on file Non-medical: Not on file Tobacco Use Smoking status: Never Smoker Smokeless tobacco: Never Used Substance and Sexual Activity Alcohol use: Not on file Drug use: Not on file Sexual activity: Not on file Lifestyle Physical activity Days per week: Not on file Minutes per session: Not on file Stress: Not on file Relationships Social connections Talks on phone: Not on file Gets together: Not on file Attends restorationist service: Not on file Active member of club or organization: Not on file Attends meetings of clubs or organizations: Not on file Relationship status: Not on file Intimate partner violence Fear of current or ex partner: Not on file Emotionally abused: Not on file Physically abused: Not on file Forced sexual activity: Not on file Other Topics Concerns: Not on file Social History Narrative Not on file Family History: Family History Problem Relation Name Age of Onset Heart Disease Father Heart Disease Paternal Grandfather Medications:07/13/20 Pt is off Plavix aspirin 81 MG tablet Take 81 mg by mouth daily. azathioprine (IMURAN) 50 MG tablet Take 50 mg by mouth. Dexlansoprazole 60 MG CPDR Take 60 mg by mouth daily. ibandronate (BONIVA) 150 MG tablet Take 150 mg by mouth every 30 days. Mesalamine (PENTASA OR) Take 125 mg by mouth four times daily. 12 Point ROS: all others are negative-2 ROS: All Systems: Denies all I have reviewed: ALLERGIES, PMH, PSH, SOC HX FHX,MEDS, 12 PT- ROS, As well as having updated the computerized patient record appropriately. LAB RESULTS: Recent Labs Lab(s) Units 11/03/18 0424 WBC K/L 7.6 RBC M/L 3.92* HGB GM/DL 11.7 HCT % 37.9 PLT K/CU MM 415 MCV fL 96.7* RDW % 15.0* BMP: Recent Labs Lab(s) Units 11/03/18 0424 11/02/18 1606 NA meq/L 141 141 K meq/L 4.0 3.8 CL meq/L 111* 106 CO2 meq/L 24 28 BUN mg/dL 11 11 CREATININE mg/dL 0.66 0.68 GLUCOSE mg/dL 91 87 CALCIUM mg/dL 8.8 9.3 MG mg/dL 1.9 2.0 CMP: Recent Labs Lab(s) Units 11/02/18 1606 AST U/L 18 ALT U/L <6* ALKPHOS U/L 23* INR 1.0 PTT seconds 35.6 CARDIAC ENZYMES: Recent Labs Lab(s) Units 11/03/18 0424 11/02/18 2222 11/02/18 1606 TROPONINI ng/mL 0.06* 0.08* 0.06* Recent Labs Lab(s) Units 11/02/18 1606 BNP pg/mL 92 LIPIDS: Lab Results Component Value Date CHOL 188 11/02/2018 Component Value Date HDL 53 11/02/2018 Lab Results LDLCALC 116 11/02/2018 Lab Results TRIG 96 11/02/2018 Physical Exam HG CARDI VITALS 07/13/2020 07/13/2020 Height 5' 0" - Weight 109 lb - BP 122/62 118/68 BP Location right arm left arm Patient Position Sitting Sitting Pulse 88 - BSA (Calculated - sq m) 1.45 m2 - BMI (Calculated) 21.3 kg/m2 - General Appearance: Alert, cooperative, no distress, appears stated age Head: Normocephalic, without obvious abnormality, atraumatic Eyes: PERRL, conjunctiva/corneas clear, EOM's intact, fundi Ears: Normal TM's and external ear canals, both ears Nose: Nares normal, septum midline, mucosa normal, no drainage or sinus tenderness Throat: Lips, mucosa, and tongue normal; teeth and gums normal Neck: Supple, symmetrical, trachea midline, no adenopathy; thyroid: No enlargement/tenderness/nodules; no JVD Possible bruit heard on ausculatation Back: Symmetric, no curvature, ROM normal, no CVA tenderness Lungs: Clear to auscultation bilaterally, respirations unlabored Chest wall: No tenderness or deformity Heart: Regular rate and rhythm, S1 S2 Murmur: none Abdomen: Soft, non-tender, bowel sounds active all four quadrants, no masses, no organomegaly Extremities: Mild hard spot over supra inguinal region right groin Skin: Skin color, texture, turgor normal, no rashes or lesions Neurologic: CNII-XII intact. Normal strength, sensation and reflexes throughout Vascular Physical Examination-normal EKG today 07/13/20 11/12/18 11/02/18 DECISION MAKING PLANS for PROBLEMS- Patient Active Problem List Diagnosis NSTEMI (non-ST elevated myocardial infarction) (HCCode) Hematoma-right groin post procedure HLD (hyperlipidemia) Gastroesophageal reflux disease with esophagitis Presence of drug-eluting stent in anterior descending branch of left coronary artery-LAD Crohn's disease (HCCode) TODAY'S PLAN-all old records reviewed today 1-Fax appropriate records to LMD and Referring Physician 2- no further testing is needed before scheduled non cardiac aurgery TESTING on RTC 1-TBD Agusto Olson MD FACC FACP [facility] TYPISTS SUPERVISOR and Chief of Peripheral Vascular [employer] Full Clinical Professor at [employer] It Technician of Endovascular PV Department at the [facility] [id number] [place] [address] Office: [email or web address] documented in this encounter Plan of Treatment Name Type Priority Associated Diagnoses Date/Ti me ELECTROCARDIOGRAM COMPLETE ECG Routine NSTEMI (non-ST elevated 07/13/2020 3:52 PM myocardial infarction) CDT (HCCode) Health Maintenance Due Date Last Done Comments COLON CANCER SCREENING: COLONOSCOPY 1960 TETANUS SHOT (ADULT) 1974 HEPATITIS C SCREENING 1977 HIV SCREENING 1977 CERVICAL CANCER SCREENING 3 YEAR FOLLOW UP 02/07/1980 ZOSTER VACCINE (1 of 2) 2009 FLU VACCINE > 6 MONTHS 06/10/2020 MAMMOGRAM ANNUAL 05/15/2021 05/15/2020 documented as of this encounter Results Not on filedocumented in this encounter Visit Diagnoses Diagnosis Presence of drug-eluting stent in anteri or descending branch of left coronary artery-LAD - Primary NSTEMI (non-ST elevated myocardial infar ction) (HCCode) Acute myocardial infarction, subendocard ial infarction, episode of care unspecified documented in this encounter Insurance Payer Benefit Plan Subscriber ID Effective Phone Address Typ e / Group Dates CARDIOVASCULAR CARE [employer] [id number] Effective for 20 Stout PPO PROVIDERS PPO all dates [address] [place] [address] documented as of this encounter
--- OUTSIDE RECORDS SUMMARY | 2020-08-01 20:31 | XMS REPORT | Continuity of Care Document ---
:1960 Author Organization [facility] t Address [address] [place] [address] [address] [place] [address] Care Team Providers Name Role Phone YOVANY Primary Care Physician Unavailable Dori Olson MD Attending Clinician Jose PECK Attending Clinician Unavailable Rissa Fuentes Attending Clinician Janet HARPER Attending Clinician Unavailable Ambreen Stevenson DO Attending Clinician Jc Muniz MD Attending Clinician Flavio ISRAEL, P. Attending Clinician Liang ISRAEL, M. Attending Clinician Giana PRESSLEY Attending Clinician Andrea ISRAEL, L. Attending Clinician YOVANY Attending Clinician Unavailable PROSPER OLSON Attending Clinician Unavailable Kamaljit Call Attending Clinician FLAVIO Admitting Clinician Unavailable PROSPER OLSON Admitting Clinician Unavailable Payers Payer Name Policy Type Policy Effective Date Expiration Date Sour ce Number CIGNACIGNA OPEN [id number] [place] ACCESS/NETWORKxx 00:00:00 Methodis t [id number] [id number] KELSEY O POS [id number] 2002 OPEN ACCESS 00:00:00 Problems Condition Condition Condition Status Onset Resolution Last Treating Co mments Source Name Details Category Date Date Treatment Clinician Date Abdominal Abdominal Disease Active Ayesha ston pain pain 07-25 [facility]: st 00 Volvulus Volvulus Disease Active [place] on 07-25 [facility]: [facility] 00 Hematoma Hematoma Disease [facility] 00 [place] Crohn's Crohn's Disease Active 2017-[address] [facility] colitis colitis 2-25 [facility] 00 [place] HLD HLD Disease Active 2017-[address] [facility] [address] (hyperlipi (hyperlipi 2-25 Larisa kes - demia) demia) 00:00: Medical 00 Center GERD GERD Disease Active 2017-[address] [facility] (gastroeso (gastroeso 2-25 Larisa kes - phageal phageal 00:00: Medical reflux reflux 00 Center disease) disease) NSTEMI NSTEMI Disease Active 2017-[address] [facility] (non-ST (non-ST 2-24 [facility] - elevated elevated 00:00: Medica l myocardial myocardial 00 Ce nter infarction infarction ) ) INCISIONAL Diagnosis Active [id number] Memoria HERNIA 0-19 13:31:00 l 00:00: Prasanna INCISIONAL 00 HERNIA Active 08/28/2016 [facility] Crohn's Problem Active 2016-09-23 Hiro logan disease 01:40:10 l (disorder) Crohn's Her lyons disease (disorder) Active Problem 09/23/2016 [facility] Incisional Problem Active 2016-09-23 M emoria hernia 01:40:10 l (disorder) Issa n Incisional hernia (disorder) Active Problem 09/23/2016 [facility] Crohn's Crohn's Disease Resolve 2020-06-25 2020-06-25 Patricia disease of disease of d - 00:00:00 10:38:50 [facility] small small 00:00: st intestine intestine 00 without without complicati complicati on on Small Small Disease Resolve 2020-06-25 2020-06-25 [place] bowel bowel d - 00:00:00 10:38:19 Method i obstructio obstructio 00:00: st n n 00 Allergies, Adverse Reactions, Alerts Allergy Allergy Status Severity Reaction(s) Onset Inactive Treating Comm ents Source Name Type Date Date Clinician Penicill DA Active U 2019-0 [facility] [place] Penicill Propensi Active Rash, 2017-11 [place] [facility] [place] to Swelling 01-03 [facility] adverse 00:00: st reaction 00 s to drug Penicill Drug Active Swelling 2017-[address] [facility] [facility] Allergy 01-03 [facility] Center penicill penicill Active Memori a ins ins l Prasanna Family History Family Member Diagnosis Comments Start Date Stop Date Source Natural father Heart disease Patricia Faith Social History Social Habit Start Date Stop Date Quantity Comments [facility] Dr[facility] Meth odist Alcohol Binge Sex Assigned At [facility] Tobacco use and 2020-06-26 2020-06-26 Never used [place] M ethodist exposure 00:00:00 00:00:00 Alcohol intake 2020-06-26 2020-06-26 Lifetime [place] Me thodist 00:00:00 00:00:00 non-drinker (finding) History [facility] 2020-06-23 2020-06-23 1 [place] Meth odist Alcohol Frequency 00:00:00 00:00:00 Smoking Status Start Date Stop Date Source Never smoker [place] Niall t Medications Ordered Filled Start Stop Current Ordering Indication Dosage Frequency Signature Comments Components Source Medication Medication Date Date Medication? Clinician (SIG) Name Name loratadine 2019-0 Yes 10mg Q24H Take 10 mg [place] (CLARITIN) 8-16 by mouth Metho di 10 mg 14:43: daily as st tablet 19 needed for allergies. azaTHIOprin 2020-0 Yes 100mg QD Take 100 [place] (IMURAN) 8-16 mg by Methodi 50 mg 14:43: mouth st tablet 19 daily. mesalamine 2020-0 Yes 2000mg Take 2,000 Patricia (PENTASA) 8-16 mg by Methodi 500 MG CR 14:43: mouth st capsule 19 daily. linaCLOtide 2020-0 Yes 145ug Q24H Take 145 [place] (LINZESS) 8-16 mcg by Methodi 145 mcg 14:43: mouth st capsule 19 daily as needed. aspirin 2020-0 Yes 81mg QD Take 81 mg [place] (ECOTRIN) 8-16 by mouth Method i 81 MG 14:43: daily. st enteric 19 coated tablet dexlansopra Yes 60mg QD Take 60 mg Patricia zole 8-16 by mouth Methodi (DEXILANT) 14:43: daily. st 60 mg 19 capsule ibandronate Yes 150mg Q30D Take 150 [place] (BONIVA) 8-16 mg by Methodi 150 mg 14:43: mouth st tablet 19 every 30 (thirty) days. On the of each monthTake in AM with glass of water prior to food, don't lie down for 30 minutes. predniSONE 2019- No 4 tabs po [place] (DELTASONE) 06-25 09-11 *6 days Meth jaida 10 mg 00:00: 23:[address] tablet pack 00 :00 tabs po *7 days then 2 tabs po *7 days then 1 tab po *7 days then stop clopidogrel 2019- No 75mg QD Take 75 mg Patricia (PLAVIX) 75 06-21 by mouth Met hodi mg tablet 02:11: 00:[address] 28 :00 metroNIDAZO 2019- No 500mg [id number] Take 500 Patricia LE (FLAGYL) 06-16 08-16 [id number] mg by Methodi 500 MG 00:00: 00:[address] tablet 00 :00 (three) times a day. For 14 days 06/16/2006/30/20 ciprofloxac 2019- No 500mg Q.5D Take 500 Patricia in (CIPRO) 06-16-16 mg by Methodi 500 MG 00:00: 00:[address] tablet 00 :00 (two) times a day. For 14 days 06/16/20-06/30/20 budesonide 2019- No 9mg QD Take 3 [place] EC 9-19 10-19 capsules Methodi (ENTOCORT 00:00: 23:59 ([address] EC) 3 mg 24 00 :00 total) by hr capsule mouth daily for 30 days. aspirin 81 2017-11- No 81mg QD Take [address] MG chewable 2-26 12-26 tablet (81 L ukes - tablet 00:00: 23:59 mg total) Medic al 00 :00 by mouth Center daily. ticagrelor 2017-11 Yes 90mg Q.5D Take 1 [facility] (BRILINTA) 2-25 tablet (90 Myrna es - 90 mg Tab 00:00: mg total) Med ical tablet 00 by mouth 2 Center (two) times daily. atorvastati 2017-11- No 80mg QD Take [address] [facility] (LIPITOR) 2-25 12-25 tablet (80 L ukes - 80 MG 00:00: 23:59 mg total) Medica l tablet 00 :00 by mouth Center nightly. metoprolol 2017-11- No 25mg Q.5D Take [address] (LOPRESSOR) 2-25 12-25 tablet (25 L ukes - 25 MG 00:00: 23:59 mg total) Medica l tablet 00 :00 by mouth 2 Center (two) times daily. linaclotide 2017-11 Yes 145ug QD Take [address] 145 mcg Cap 2-24 mcg by [facility] - 14:50: mouth Medical 09 daily. [place] dexlansopra 2017-11 Yes 60mg QD Take [address] zole 60 mg 2-24 by mouth [facility] - capsule 14:46: daily. Medical 06 [place] azaTHIOprin 2017-11 Yes 100mg QD Take [address] (IMURAN) 2-24 mg by [facility] - 50 mg 14:45: mouth Medical tablet 09 daily. [place] mesalamine 2017-11 Yes 2000mg QD Take 2,[address] (PENTASA) 2-24 mg by [facility] - 500 MG CR 14:45: mouth Medical capsule 09 daily. [place] Hydromorpho 2015-11 No 0.5 mg, Mem oria ne 11-21 Route: l 00:30: IVP, Prasanna 00 Q5Min, Dosing Weight 51.364, kg, PRN Pain Score 7-10, Start date: 09/20/16 18:30:00 LEAD TELLER, Duration: 4 doses or times, Stop date: Limited # of times Flumazenil 2015-11 No 0.2 mg, Hiro logan 11-21 Route: l 00:30: IVP, PRN, [place] 00 Dosing Weight 51.364, kg, PRN Benzodiaze pine Reversal, Initial dose, Start date: 09/20/16 18:30:00 LEAD TELLER, Duration: 30 day, Stop date: 10/20/16 18:29:00 LEAD TELLER Albuterol 2015-11 No 2.49 mg, Hiro logan 0.83 MG/ML 11-21 Route: l Inhalant 00:30: NEB, [place] Solution 00 Q20Min, Dosing Weight 51.364, kg, PRN Wheezing, Priority: STAT, Start date: 09/20/16 18:30:00 LEAD TELLER, Duration: 30 day, Stop date: 10/20/16 18:29:00 LEAD TELLER Naloxone 2015-11 No 0.4 mg, Memori a 11-21 Route: l 00:30: IVP, Prasanna 00 Q2MIN, Dosing Weight 51.364, kg, PRN Narcotic Reversal, Start date: 09/20/16 18:30:00 LEAD TELLER, Duration: 8 doses or times, Stop date: Limited # of times Promethazin 2015-11 No 6.25 mg, Me moria e 11-21 Route: l 00:30: IVPB, [place] 00 ONCE, Dosing Weight 51.364, kg, PRN Nausea & Vomiting, Start date: 09/20/16 18:30:00 LEAD TELLER Ondansetron 2015-11 No 4 mg, Memor ia 11-21 Route: l 00:30: IVP, ONCE, Prasanna 00 Dosing Weight 51.364, kg, PRN Nausea & Vomiting, Start date: 09/20/16 18:30:00 LEAD TELLER Oxycodone 2015-11 No 5 mg, Memoria 11-21 Route: PO, l 00:30: Drug form: Prasanna 00 TAB, Q4H, Dosing Weight 51.364, kg, PRN Pain Score 4-6, Start date: 09/20/16 18:30:00 LEAD TELLER, Duration: 30 day, Stop date: 10/20/16 18:29:00 LEAD TELLER Hydralazine 2015-11 No 10 mg, Hiro logan 11-21 Route: l 00:30: IVP, [place] 00 Q20Min, Dosing Weight 51.364, kg, PRN Elevated BP, Start date: 09/20/16 18:30:00 LEAD TELLER, Duration: 2 doses or times, Stop date: Limited # of times Sodium 2015-11 No 500 mL, Memoria Chloride 12 Infuse l 0.154 00:30: Over: 20 Prasanna MEQ/ML 00 minutes, Injectable Route: IV, Solution ONCE, Dosing Weight 51.364 kg, Start date: 09/20/16 18:30:00 LEAD TELLER, Stop date: 09/20/16 18:30:00 LEAD TELLER Acetaminoph 2015-11 Yes 2 tab, PO, Memoria en 325 MG / 11-21 Q4H, PRN l Hydrocodone 00:02: Pain Score Prasanna Bitartrate 00 4-6, 0 5 MG Oral Refill(s) Tablet [[place] 5/325] Acetaminoph 2015-11 No 2 tab, Hiro logan en 325 MG / 11-20 Route: PO, l Hydrocodone 23:58: Drug Form: [place] Bitartrate 00 TAB, 5 MG Oral Dosing Tablet Weight [[place] 51.364, 5/325] kg, Q4H, PRN Pain Score 4-6, Start date: 09/20/16 17:58:00 LEAD TELLER, Duration: 30 day, Stop date: 10/20/16 17:57:00 LEAD TELLER Zofran 2015-11 Yes Notes: Memoria 11-20 (Same as: l 23:58: Zofran) Prasanna 00 MEDICATION WASTE Product Size: 4 mg Product Wasted: ___ mg Acetaminoph 2015-11 No 1 tab, Hiro logan en 325 MG / 11-20 Route: PO, l Hydrocodone 23:57: Drug Form: Prasanna Bitartrate 00 TAB, 5 MG Oral Dosing Tablet Weight [[place] 51.364, 5/325] kg, Q4H, PRN Pain Score 1-3, Start date: 09/20/16 17:57:00 LEAD TELLER, Duration: 30 day, Stop date: 10/20/16 17:56:00 LEAD TELLER bupivacaine 2015-11 No Notes: Hiro logan liposome 11-20 (Same as: l 22:00: Exparel) Prasanna NOT FOR IV use Postoperat bobby analgesia: Infiltrati on (local): Dose is based on surgical site and volume required to cover the area (in general, the maximum total dose is 266 mg). Bunionecto my: 7 mL into the tissues surroundin g the osteotomy and 1 mL into the subcutaneo us tissue of the surgical site (total dose = 8 mL [106 mg]) Hemorrhoid ectomy: 30 mL (20 mL vial diluted with 10 mL NS) divided and administer ed as 6 injections of 5 mL each (total dose = 30 mL [266 mg]) vancomycin 2015-11 No 2001 mg: Me moria 11-20 infuse l 20:44: over 2.5 Prasanna 00 hours MEDICATION WASTE Product Size: 1000 mg Product Wasted: ___ mg Ibuprofen 2015-11 Yes 400 mg = 2 Me moria 200 MG Oral 11-16 tab, PO, l Tablet 18:15: Q4H, PRN Prasanna [Advil] 00 Pain, # 120 tab, 0 Refill(s) dexlansopra 2015-11 Yes 60 mg = 1 M emoria zole 60 MG 11-16 cap, PO, l Enteric 18:14: Daily, # Issa n Coated 00 30 day, 1 Capsule Refill(s) [Dexilant] Dexilant 2015-11 Yes PO, Daily, Mem oria 11-16 0 l 18:14: Refill(s) Pentasa 2015-11 Yes 1,000 mg, Memor ia 11-16 PO, QID, 0 l 18:12: Refill(s) [place] Imuran 2015-11 Yes Daily, 0 Memoria 07 Refill(s) l 18:11: [place] 00 Vital Signs Vital Name Observation Time Observation Value Comments Source Systolic blood 2020-06-25 11:48:28 111 mm[Hg] Keyla n Faith pressure Diastolic blood 2020-06-25 11:48:28 66 mm[Hg] Cj on Faith pressure Heart rate 2020-06-25 11:48:28 87 /min Harshad Rae Body temperature 2020-06-25 11:48:28 36.72 Darlyn Wilberto ton Faith Respiratory rate 2020-06-25 11:48:28 20 /min Wilberto ton Faith Oxygen saturation in 2020-06-25 11:48:28 95 /min Harshad Rae Arterial blood by Pulse oximetry Body height 2020-06-21 00:38:00 154.9 cm Harshad Rae Body weight 2020-06-21 00:38:00 49.896 kg Harshad Rae BMI 2020-06-21 00:38:00 20.78 kg/m2 Harshad Rae Respitory Rate 2016-09-21 02:30:00 Memori al [place] Systolic (mm Hg) 2016-09-21 02:30:00 Hiro rial [place] Diastolic (mm Hg) 2016-09-21 02:30:00 Mem orial [place] Respitory Rate 2016-09-21 01:45:00 Memori al Prasanna Systolic (mm Hg) 2016-09-21 01:45:00 Hiro rial [place] Diastolic (mm Hg) 2016-09-21 01:45:00 Mem orial Prasanna Systolic (mm Hg) 2016-09-21 01:30:00 Hiro rial [place] Diastolic (mm Hg) 2016-09-21 01:30:00 Mem orial Prasanna Respitory Rate 2016-09-21 01:30:00 Memori al [place] Heart [facility] 16:[facility]:00 [facility] Height 2016-09-16 16:41:[address] [facility] Weight 2016-09-16 16:41:00 [facility] BMI Calculated 2016-09-16 16:41:00 [facility] [place] Procedures Procedure Date / Time Performing Clinician Source Performed BASIC METABOLIC PANEL 2020-06-25 04:00:00 Cj Casanova on Faith Jetsen Benny ESTIMATED GFR 2020-06-25 04:00:00 Harshad Casanova Met hodist [place] BASIC METABOLIC PANEL 2020-06-24 04:00:00 Cj Casanova on Faith Jetsen Benny MAGNESIUM LEVEL 2020-06-24 04:00:00 Dilma Muniz Met hodist ESTIMATED GFR 2020-06-24 04:00:00 Harshad Casanova Met hodist [place]en [place]enny SURGICAL PATHOLOGY 2020-06-23 10:10:00 Dilma Muniz Faith REQUEST COLONOSCOPY 2020-06-23 07:59:00 Mirela Mendez Meth odist BASIC METABOLIC PANEL 2020-06-23 04:00:00 Cj Casanova on Faith Jetsen Benny C-REACTIVE PROTEIN 2020-06-23 04:00:00 Michelle Schulte Faith ESTIMATED GFR 2020-06-23 04:00:00 Harshad Casanova Met hodist Jetsen Benny SEDIMENTATION RATE 2020-06-23 03:45:00 Michelle Schulte Faith ECG PRE/POST OP 2020-06-22 20:40:52 GianaLinsey Harshad Meth odist XR ABDOMEN 1 VW PORTABLE 2020-06-22 09:06:37 Dilma Muniz Faith BASIC METABOLIC PANEL 2020-06-22 04:00:00 Dilma Muniz on Faith MAGNESIUM LEVEL 2020-06-22 04:00:00 Dilma Muniz Met hodist ESTIMATED GFR 2020-06-22 04:00:00 Dilma Muniz Met hodist HC COMPLETE BLD COUNT 2020-06-21 05:00:00 Warren Severino Faith W/AUTO DIFF BASIC METABOLIC PANEL 2020-06-21 04:00:00 Warren Severino ESTIMATED GFR 2020-06-21 04:00:00 Warren Severino ethodist COVID-19 QUALITATIVE PCR 2020-06-21 00:05:00 Shamika Muniz Faithpancho [place] XR ABDOMEN 1 VW 2020-06-20 23:27:11 Flavio Shamika Garcia odpancho [place] HC COMPLETE BLD COUNT 2020-06-20 21:29:00 Vipin Garcia Faith W/AUTO DIFF COMPREHENSIVE METABOLIC 2020-06-20 21:29:00 Vipin Garcia Faith PANEL LACTIC ACID LEVEL 2020-06-20 21:29:00 Vipin Garcia ESTIMATED GFR 2020-06-20 21:29:00 MunizRon halekatlyn Patricia Meth odpancho [facility] CT ABD/PELVIC EXTERNAL 2020-06-20 16:40:00 Shamika Muniz on Faith STUDY Jc Resection<sup>1</sup> [facility] Plan of Care Planned Activity Planned Date Details Comments Source Future Scheduled 2023-11-[address] [facility]00 (procedure) [code = Medical Center 11389625] Future Scheduled 2020-07-11 INFLUENZA VACCINE Wilbertoto n Faith Test 00:00:00 [code = INFLUENZA VACCINE] Future Scheduled 2020-07-[address] [facility] - Test 00:00:00 (#1) [code = Medical Center INFLUENZA VACCINE (#1)] Future Scheduled 2009 BREAST CANCER [place] [facility] Test 00:00:00 SCREENING [code = BREAST CANCER SCREENING] Future Scheduled 2009 COLONOSCOPY SCREENING [facility] Faith Test 00:00:00 [code = COLONOSCOPY SCREENING] Future Scheduled 2009 SHINGLES VACCINES [place] [facility] Test 00:00:00 (#1) [code = SHINGLES VACCINES (#1)] Future Scheduled 1980-02-07 Screening for [place] [facility] Test 00:00:00 malignant neoplasm of cervix (procedure) [code = 858903030] Future Scheduled 1980-02-[address] [facility] - Test 00:00:00 malignant neoplasm of Medica l Center cervix (procedure) [code = 269956335] Future Scheduled [address] [facility] - Test 00:00:00 malignant neoplasm of Medica l Center breast (procedure) [code = 517929388] Future Scheduled [address] [facility] - Test 00:00:00 malignant neoplasm of Medica l Center colon (procedure) [code = 369711176] Encounters Start End Encounter Admission Attending Care Care Encounter Source Date/Time Date/Time Type Type Clinicians Facility Department ID 2020-07-13 2020-07-13 Office ESTELA Olson [id number] 14:47:57 16:54:20 Visit Agusto E AMBULATOR [id number] Y [id number] 2020-06-20 2020-06-25 Inpatient [facility] Radha [id number] 26 [place] 00:00:00 00:00:00 DILMA [address] 2020-06-20 2020-06-20 Emergency [facility] [id number] 25 [place] 00:00:00 00:00:00 SHAMIKA [address] 2020-05-15 2020-05-15 Outpatient KILEY PEDROZA MDA MDA [id number] 13:54:25 13:54:25 [place] 2016-09-20 2016-09-20 Outpatient Jakub, [facility] [id number] 13:31:00 23:59:00 Kostas Leon 00 Kamaljit Results Test Description Test Time Test Comments Results Result Comments Source MAGNESIUM 2020-07-31 06:44:00 Test Item Value Reference Range Interpretation Comme nts MAGNESIUM (test code = MAG) 1.8 mg/dL 1.8-2.4 N CHEMISTRY 7 [id number] 06:31:00 Test Item Value Reference Range Interpretation Comments SODIUM (test code = NA) 138 mEq/L 135-145 N POTASSIUM (test code = K) 3.8 mEq/L 3.5-5.0 N CHLORIDE (test code = CL) 105 mEq/L 100-115 N CARBON DIOXIDE (test code = CO2) 27 mEq/L 22-31 N ANION GAP (test code = GAP) 9.70 10-20 L GLUCOSE (test code = GLU) 102 mg/dL 65-110 N BLOOD UREA NITROGEN (test code = 4 mg/dL 7-18 L BUN) GLOMERULAR FILTRATION RATE (test 102 ml/min >60 N code = GFR) CREATININE (test code = CREAT) 0.6 mg/dL 0.5-1.0 N CALCIUM (test code = CA) 7.5 mg/dL 8.4-10.2 L [id number] 06:31:00 Test Item Value Reference Range Interpretation Comments MAGNESIUM (test code = MAG) 1.3 mg/dL 1.8-2.4 L CBC W/AUTO [id number] 06:06:00 Test Item Value Reference Range Interpretation Comments WHITE BLOOD CELL (test code = WBC) 5.9 K/mm3 6.6-12.1 L RED BLOOD CELL (test code = RBC) 3.21 M/mm3 3.45-5.01 L HEMOGLOBIN (test code = HGB) 9.6 g/dL 10.7-13.9 L HEMATOCRIT (test code = HCT) 31.0 % 32.1-42.1 L MEAN CELL VOLUME (test code = MCV) 97 fL 84.1-94.8 H MEAN CELL HGB (test code = MCH) 29.9 pg 27-35 N MEAN CELL HGB CONCETRATION (test 31.0 gm/dL 32.2-34.1 L code = MCHC) RED CELL DISTRIBUTION WIDTH (test 16.8 % 12.4-16.5 H code = RDW) PLATELET COUNT (test code = PLT) 548 K/mm3 133-385 H MEAN PLATELET VOLUME (test code = 8.7 fl 9.1-12.7 L MPV) NEUTROPHIL % (test code = NT%) 65.2 % 56.5-79.4 N LYMPHOCYTE % (test code = LY%) 19.7 % 14.3-34.3 N MONOCYTE % (test code = MO%) 11.5 % 5.1-10.4 H EOSINOPHIL % (test code = EO%) 0.8 % 0.1-3.0 N BASOPHIL % (test code = BA%) 0.3 % 0.1-1.0 N NEUTROPHIL # (test code = NT#) 3.8 K/mm3 LYMPHOCYTE # (test code = LY#) 1.2 K/mm3 MONOCYTE # (test code = MO#) 0.7 K/mm3 EOSINOPHIL # (test code = EO#) 0.05 K/mm3 BASOPHIL # (test code = BA#) 0.0 K/mm3 RBC MORPHOLOGY REQUIRED (test code NORMAL NORMAL = RBCM) PLATELET MORPHOLOGY REQUIRED (test NORMAL NORMAL code = PLTMR) [id number] 10:35:00 Test Item Value Reference Range Interpretation Comments PHOSPHOROUS (test code = PHOS) 3.4 mg/dL 2.5-4.9 N [id number] 10:35:00 Test Item Value Reference Range Interpretation Comments MAGNESIUM (test code = MAG) 1.4 mg/dL 1.8-2.4 L CHEMISTRY 7 [id number] 06:47:00 Test Item Value Reference Range Interpretation Comments SODIUM (test code = NA) 139 mEq/L 135-145 N POTASSIUM (test code = K) 3.3 mEq/L 3.5-5.0 L CHLORIDE (test code = CL) 106 mEq/L 100-115 N CARBON DIOXIDE (test code = CO2) 26 mEq/L 22-31 N ANION GAP (test code = GAP) 10.30 10-20 N GLUCOSE (test code = GLU) 98 mg/dL 65-110 N BLOOD UREA NITROGEN (test code = 4 mg/dL 7-18 L BUN) GLOMERULAR FILTRATION RATE (test 102 ml/min >60 N code = GFR) CREATININE (test code = CREAT) 0.6 mg/dL 0.5-1.0 N CALCIUM (test code = CA) 7.6 mg/dL 8.4-10.2 L CBC W/AUTO [id number] 06:30:00 Test Item Value Reference Range Interpretation Comments WHITE BLOOD CELL (test code = WBC) 3.8 K/mm3 6.6-12.1 L RED BLOOD CELL (test code = RBC) 3.29 M/mm3 3.45-5.01 L HEMOGLOBIN (test code = HGB) 9.9 g/dL 10.7-13.9 L HEMATOCRIT (test code = HCT) 31.1 % 32.1-42.1 L MEAN CELL VOLUME (test code = MCV) 95 fL 84.1-94.8 H MEAN CELL HGB (test code = MCH) 30.1 pg 27-35 N MEAN CELL HGB CONCETRATION (test 31.8 gm/dL 32.2-34.1 L code = MCHC) RED CELL DISTRIBUTION WIDTH (test 16.8 % 12.4-16.5 H code = RDW) PLATELET COUNT (test code = PLT) 505 K/mm3 133-385 H MEAN PLATELET VOLUME (test code = 8.8 fl 9.1-12.7 L MPV) NEUTROPHIL % (test code = NT%) 55.7 % 56.5-79.4 L LYMPHOCYTE % (test code = LY%) 26.6 % 14.3-34.3 N MONOCYTE % (test code = MO%) 13.8 % 5.1-10.4 H EOSINOPHIL % (test code = EO%) 1.6 % 0.1-3.0 N BASOPHIL % (test code = BA%) 0.5 % 0.1-1.0 N NEUTROPHIL # (test code = NT#) 2.1 K/mm3 LYMPHOCYTE # (test code = LY#) 1.0 K/mm3 MONOCYTE # (test code = MO#) 0.5 K/mm3 EOSINOPHIL # (test code = EO#) 0.06 K/mm3 BASOPHIL # (test code = BA#) 0.0 K/mm3 RBC MORPHOLOGY REQUIRED (test code NORMAL NORMAL = RBCM) PLATELET MORPHOLOGY REQUIRED (test NORMAL NORMAL code = PLTMR) CHEMISTRY 7 [id number] 07:17:00 Test Item Value Reference Range Interpretation Comments SODIUM (test code = NA) 137 mEq/L 135-145 N POTASSIUM (test code = K) 4.1 mEq/L 3.5-5.0 N CHLORIDE (test code = CL) 105 mEq/L 100-115 N CARBON DIOXIDE (test code = CO2) 24 mEq/L 22-31 N ANION GAP (test code = GAP) 11.80 10-20 N GLUCOSE (test code = GLU) 95 mg/dL 65-110 N BLOOD UREA NITROGEN (test code = 5 mg/dL 7-18 L BUN) GLOMERULAR FILTRATION RATE (test 102 ml/min >60 N code = GFR) CREATININE (test code = CREAT) 0.6 mg/dL 0.5-1.0 N CALCIUM (test code = CA) 7.4 mg/dL 8.4-10.2 L CBC W/AUTO [id number] 06:47:00 Test Item Value Reference Range Interpretation Comments WHITE BLOOD CELL (test code = WBC) 5.8 K/mm3 6.6-12.1 L RED BLOOD CELL (test code = RBC) 3.45 M/mm3 3.45-5.01 N HEMOGLOBIN (test code = HGB) 10.4 g/dL 10.7-13.9 L HEMATOCRIT (test code = HCT) 34.2 % 32.1-42.1 N MEAN CELL VOLUME (test code = MCV) 99 fL 84.1-94.8 H MEAN CELL HGB (test code = MCH) 30.1 pg 27-35 N MEAN CELL HGB CONCETRATION (test 30.4 gm/dL 32.2-34.1 L code = MCHC) RED CELL DISTRIBUTION WIDTH (test 17.2 % 12.4-16.5 H code = RDW) PLATELET COUNT (test code = PLT) 550 K/mm3 133-385 H MEAN PLATELET VOLUME (test code = 9.0 fl 9.1-12.7 L MPV) NEUTROPHIL % (test code = NT%) 65.1 % 56.5-79.4 N LYMPHOCYTE % (test code = LY%) 23.4 % 14.3-34.3 N MONOCYTE % (test code = MO%) 7.4 % 5.1-10.4 N EOSINOPHIL % (test code = EO%) 1.7 % 0.1-3.0 N BASOPHIL % (test code = BA%) 0.7 % 0.1-1.0 N NEUTROPHIL # (test code = NT#) 3.8 K/mm3 LYMPHOCYTE # (test code = LY#) 1.4 K/mm3 MONOCYTE # (test code = MO#) 0.4 K/mm3 EOSINOPHIL # (test code = EO#) 0.10 K/mm3 BASOPHIL # (test code = BA#) 0.0 K/mm3 RBC MORPHOLOGY REQUIRED (test code NORMAL NORMAL = RBCM) PLATELET MORPHOLOGY REQUIRED (test NORMAL NORMAL code = PLTMR) CHEMISTRY 7 [id number] 06:43:00 Test Item Value Reference Range Interpretation Comments SODIUM (test code = NA) 138 mEq/L 135-145 N POTASSIUM (test code = K) 4.1 mEq/L 3.5-5.0 N CHLORIDE (test code = CL) 108 mEq/L 100-115 N CARBON DIOXIDE (test code = CO2) 23 mEq/L 22-31 N ANION GAP (test code = GAP) 10.70 10-20 N GLUCOSE (test code = GLU) 106 mg/dL 65-110 N BLOOD UREA NITROGEN (test code = 5 mg/dL 7-18 L BUN) GLOMERULAR FILTRATION RATE (test 102 ml/min >60 N code = GFR) CREATININE (test code = CREAT) 0.6 mg/dL 0.5-1.0 N CALCIUM (test code = CA) 7.7 mg/dL 8.4-10.2 L VBG IONIZED [id number] 06:19:00 Test Item Value Reference Range Interpretation Comments VBG IONIZED CALCIUM (test code = 1.16 mmol/L 0.9-1.29 N ICAL/VBG) CBC W/AUTO [id number] 06:15:00 Test Item Value Reference Range Interpretation Comments WHITE BLOOD CELL (test code = WBC) 9.1 K/mm3 6.6-12.1 N RED BLOOD CELL (test code = RBC) 3.51 M/mm3 3.45-5.01 N HEMOGLOBIN (test code = HGB) 10.8 g/dL 10.7-13.9 N HEMATOCRIT (test code = HCT) 33.8 % 32.1-42.1 N MEAN CELL VOLUME (test code = MCV) 96 fL 84.1-94.8 H MEAN CELL HGB (test code = MCH) 30.8 pg 27-35 N MEAN CELL HGB CONCETRATION (test 32.0 gm/dL 32.2-34.1 L code = MCHC) RED CELL DISTRIBUTION WIDTH (test 17.2 % 12.4-16.5 H code = RDW) PLATELET COUNT (test code = PLT) 525 K/mm3 133-385 H MEAN PLATELET VOLUME (test code = 8.8 fl 9.1-12.7 L MPV) NEUTROPHIL % (test code = NT%) 78.9 % 56.5-79.4 N LYMPHOCYTE % (test code = LY%) 15.0 % 14.3-34.3 N MONOCYTE % (test code = MO%) 3.0 % 5.1-10.4 L EOSINOPHIL % (test code = EO%) 1.8 % 0.1-3.0 N BASOPHIL % (test code = BA%) 0.2 % 0.1-1.0 N NEUTROPHIL # (test code = NT#) 7.2 K/mm3 LYMPHOCYTE # (test code = LY#) 1.4 K/mm3 MONOCYTE # (test code = MO#) 0.3 K/mm3 EOSINOPHIL # (test code = EO#) 0.16 K/mm3 BASOPHIL # (test code = BA#) 0.0 K/mm3 RBC MORPHOLOGY REQUIRED (test code NORMAL NORMAL = RBCM) PLATELET MORPHOLOGY REQUIRED (test NORMAL NORMAL code = PLTMR) CHEMISTRY 7 [id number] 06:31:00 Test Item Value Reference Range Interpretation Comments SODIUM (test code = NA) 143 mEq/L 135-145 N POTASSIUM (test code = K) 3.6 mEq/L 3.5-5.0 N CHLORIDE (test code = CL) 109 mEq/L 100-115 N CARBON DIOXIDE (test code = CO2) 25 mEq/L 22-31 N ANION GAP (test code = GAP) 12.30 10-20 N GLUCOSE (test code = GLU) 97 mg/dL 65-110 N BLOOD UREA NITROGEN (test code = 5 mg/dL 7-18 L BUN) GLOMERULAR FILTRATION RATE (test 85 ml/min >60 N code = GFR) CREATININE (test code = CREAT) 0.7 mg/dL 0.5-1.0 N CALCIUM (test code = CA) 7.9 mg/dL 8.4-10.2 L CBC W/AUTO [id number] 06:23:00 Test Item Value Reference Range Interpretation Comments WHITE BLOOD CELL (test 9.2 K/mm3 6.6-12.1 N code = WBC) RED BLOOD CELL (test 3.71 M/mm3 3.45-5.01 N code = RBC) HEMOGLOBIN (test code = 11.2 g/dL 10.7-13.9 N HGB) HEMATOCRIT (test code = 36.3 % 32.1-42.1 N HCT) MEAN CELL VOLUME (test 98 fL 84.1-94.8 H code = MCV) MEAN CELL HGB (test code 30.2 pg 27-35 N = MCH) MEAN CELL HGB 30.9 gm/dL 32.2-34.1 L CONCETRATION (test code = MCHC) RED CELL DISTRIBUTION 16.9 % 12.4-16.5 H WIDTH (test code = RDW) PLATELET COUNT (test 535 K/mm3 133-385 H Results verified by code = PLT) repeat analysis MEAN PLATELET VOLUME 9.2 fl 9.1-12.7 N (test code = MPV) NEUTROPHIL % (test code 82.6 % 56.5-79.4 H = NT%) LYMPHOCYTE % (test code 11.0 % 14.3-34.3 L = LY%) MONOCYTE % (test code = 3.3 % 5.1-10.4 L MO%) EOSINOPHIL % (test code 2.0 % 0.1-3.0 N = EO%) BASOPHIL % (test code = 0.3 % 0.1-1.0 N BA%) NEUTROPHIL # (test code 7.6 K/mm3 = NT#) LYMPHOCYTE # (test code 1.0 K/mm3 = LY#) MONOCYTE # (test code = 0.3 K/mm3 MO#) EOSINOPHIL # (test code 0.18 K/mm3 = EO#) BASOPHIL # (test code = 0.0 K/mm3 BA#) RBC MORPHOLOGY REQUIRED NORMAL NORMAL (test code = RBCM) PLATELET MORPHOLOGY NORMAL NORMAL REQUIRED (test code = PLTMR) CBC W/AUTO [id number] 08:48:00 Test Item Value Reference Range Interpretation Comments WHITE BLOOD CELL (test code = WBC) 8.3 K/mm3 6.6-12.1 N RED BLOOD CELL (test code = RBC) 3.49 M/mm3 3.45-5.01 N HEMOGLOBIN (test code = HGB) 10.8 g/dL 10.7-13.9 N HEMATOCRIT (test code = HCT) 36.2 % 32.1-42.1 N MEAN CELL VOLUME (test code = MCV) 104 fL 84.1-94.8 H MEAN CELL HGB (test code = MCH) 30.9 pg 27-35 N MEAN CELL HGB CONCETRATION (test 29.8 gm/dL 32.2-34.1 L code = MCHC) RED CELL DISTRIBUTION WIDTH (test 17.2 % 12.4-16.5 H code = RDW) PLATELET COUNT (test code = PLT) 348 K/mm3 133-385 N MEAN PLATELET VOLUME (test code = 9.2 fl 9.1-12.7 N MPV) MANUAL DIFF REQUIRED (test code = YES MDIFF) RBC MORPHOLOGY REQUIRED (test code NORMAL NORMAL = RBCM) PLATELET MORPHOLOGY REQUIRED (test NORMAL NORMAL code = PLTMR) WBC [id number] 08:48:00 Test Item Value Reference Range Interpretation Comments TOTAL CELLS COUNTED (test code = 100 #CELLS TCC) SEGMENTED NEUTROPHILS (test code = 64 % 56.5-79.4 N SEG) BAND NEUTROPHIL (test code = BAND) 26 % 0-5 H LYMPHOCYTE (test code = LYMPH) 8 % 20-40 L MONOCYTE (test code = MON) 2 % 0-8 N PLATELET ESTIMATE (test code = ADEQUATE ADEQ PLTEST) CHEMISTRY 7 [id number] 07:40:00 Test Item Value Reference Range Interpretation Comments SODIUM (test code = NA) 140 mEq/L 135-145 N POTASSIUM (test code = K) 3.7 mEq/L 3.5-5.0 N CHLORIDE (test code = CL) 107 mEq/L 100-115 N CARBON DIOXIDE (test code = CO2) 23 mEq/L 22-31 N ANION GAP (test code = GAP) 13.60 10-20 N GLUCOSE (test code = GLU) 133 mg/dL 65-110 H BLOOD UREA NITROGEN (test code = 5 mg/dL 7-18 L BUN) GLOMERULAR FILTRATION RATE (test 85 ml/min >60 N code = GFR) CREATININE (test code = CREAT) 0.7 mg/dL 0.5-1.0 N CALCIUM (test code = CA) 6.8 mg/dL 8.4-10.2 L CBC W/AUTO [id number] 07:37:00 Test Item Value Reference Range Interpretation Comments WHITE BLOOD CELL (test code = WBC) 8.3 K/mm3 6.6-12.1 N RED BLOOD CELL (test code = RBC) 3.49 M/mm3 3.45-5.01 N HEMOGLOBIN (test code = HGB) 10.8 g/dL 10.7-13.9 N HEMATOCRIT (test code = HCT) 36.2 % 32.1-42.1 N MEAN CELL VOLUME (test code = MCV) 104 fL 84.1-94.8 H MEAN CELL HGB (test code = MCH) 30.9 pg 27-35 N MEAN CELL HGB CONCETRATION (test 29.8 gm/dL 32.2-34.1 L code = MCHC) RED CELL DISTRIBUTION WIDTH (test 17.2 % 12.4-16.5 H code = RDW) PLATELET COUNT (test code = PLT) 348 K/mm3 133-385 N MEAN PLATELET VOLUME (test code = 9.2 fl 9.1-12.7 N MPV) MANUAL DIFF REQUIRED (test code = YES MDIFF) RBC MORPHOLOGY REQUIRED (test code NORMAL = RBCM) PLATELET MORPHOLOGY REQUIRED (test NORMAL code = PLTMR) WBC [id number] 07:37:00 Test Item Value Reference Range Interpretation Comments SEGMENTED NEUTROPHILS (test code = SEG) % 56.5-79.4 LYMPHOCYTE (test code = LYMPH) % 20-40 CBC W/AUTO [id number] 07:37:00 Test Item Value Reference Range Interpretation Comments WHITE BLOOD CELL (test code = WBC) 8.3 K/mm3 6.6-12.1 N RED BLOOD CELL (test code = RBC) 3.49 M/mm3 3.45-5.01 N HEMOGLOBIN (test code = HGB) 10.8 g/dL 10.7-13.9 N HEMATOCRIT (test code = HCT) 36.2 % 32.1-42.1 N MEAN CELL VOLUME (test code = MCV) 104 fL 84.1-94.8 H MEAN CELL HGB (test code = MCH) 30.9 pg 27-35 N MEAN CELL HGB CONCETRATION (test 29.8 gm/dL 32.2-34.1 L code = MCHC) RED CELL DISTRIBUTION WIDTH (test 17.2 % 12.4-16.5 H code = RDW) PLATELET COUNT (test code = PLT) 348 K/mm3 133-385 N MEAN PLATELET VOLUME (test code = 9.2 fl 9.1-12.7 N MPV) MANUAL DIFF REQUIRED (test code = YES MDIFF) RBC MORPHOLOGY REQUIRED (test code NORMAL = RBCM) PLATELET MORPHOLOGY REQUIRED (test NORMAL code = PLTMR) WBC [id number] 07:37:00 Test Item Value Reference Range Interpretation Comments SEGMENTED NEUTROPHILS (test code = SEG) % 56.5-79.4 LYMPHOCYTE (test code = LYMPH) % 20-40 COVID 19 Asymptomatic IH [id number] 19:52:00 Test Item Value Reference Range Interpretation Comments COVID 19 NEGATIVE NEGATIVE This test has b een Asymptomatic IH AG authorize d only for the (test code = detection ofpro teins from COVNONPUIAG) SARS-CoV-2, not for any other viruses orpathogens. N egative results should be treated as presumptive andconfirmed wi th a molecular assay , if necessary for patientmanageme nt. Negative result s do not rule out COVID- 19 andshould not b e used as the sole basis for treatment orpat ient management deci sions, including infec tion controldecision s. Negative result s should be considered i n thecontext of a patient's recent exposure s, history and thepresence of clinical signs and symptoms consis tent withCOVID-19. T his test has not been FD A cleared or approved; th e test hasbeen authori zed by FDA under an Emerge ncy Use Authorization(E UA) for use by laborato kal certified under the CLIA thatmeet the re quirements to perform mode rate, high or waivedcomple xity tests. This tacho t is authorized for use at thePoint of Car e (POC), i.e., in patien t care settingsoperati ng under a CLIA Certificat e of Waiver, Certifi quentin ofCompliance, o r Certificate of Accreditation. This test is only authori zed for the duration of thedeclaration that circumstances e xist justifying theauthorizatio n of emergency use o f in vitro diagnostic test sfor detection and/o r diagnosis of CO VID-19 under Zkuupgh39 4(b)(1) of the Act, 21 U.S .C. 360bbb-3(b)(1), unless theauthorizatio n is terminated or r evoked sooner. HGB [id number] 17:52:00 Test Item Value Reference Range Interpretation Comments HEMOGLOBIN (test code = HGB) 13.3 g/dL 10.7-13.9 N HEMATOCRIT (test code = HCT) 42.1 % 32.1-42.1 N Surgical pathology [id number] 12:44:15 Test Item Value Reference Range Interpretation Comments Case number (test code = [id number]) Surgical pathology See link below for report (test code = PDF Lab Report [id number]) Result status (test code This is Final Report = [id number]) [facility] [id number] [facility] [id number] 06:23:42 Test Item Value Reference Range Interpretation Comments Sodium (test code = 2951-2) 140 135- 148 mEq/L Potassium (test code = 2823-3) 4.0 3.5- 5.0 mEq/L Chloride (test code = 2075-0) 108 98- 112 mEq/L CO2 (test code = 8-9) 23 24- 31 mEq/L L Anion gap (test code = 84540-9) 9@ANIO 7- 15 mEq/L BUN (test code = 3094-0) 4 mg/dL 8-23 L Creatinine (test code = 2160-0) 0.64 mg/dL 0.5-0.9 Glucose (test code = 2345-7) 80 mg/dL 65-99 Calcium (test code = 17345-8) 8.5 mg/dL 8.8-10.2 L Lab Interpretation (test code = Abnormal 82928-4) [facility] MethodistEstimated [id number] 06:23:41 Test Item Value Reference Range Interpretation Comments Estimated GFR (test >=90 mL/min/1.73 m2 Caterg ory Units code = 5488) InterpretationG 1 >=90 Normal or highG2 60-89 Mildly yglamzbrjR3l 45-59 Mildly to mode rately vfgmnhqlzM9z 30-44 Moderately to severely decreasedG4 15-29 Severely decre asedG5 <15 Kidn ey failureThe eGFR was calculated beatrice de luna the Chronic Kidney Disease Epidemiology Co llaboration (CKD-EPI) equat ion. Interpretation is based on recommendations of the National Kidney Foundation-Kidn ey Disease Outcomes Qualit y Initiative (NKF-KDOQI) pub lished in 2014. [facility] MethodistMagnesium [id number] 06:30:10 Test Item Value Reference Range Interpretation Comments Magnesium (test code = 29652-8) 2.2 mg/dL 1.6-2.4 [facility] MethodistECG Pre/Post [id number] 10:36:35 Test Item Value Reference Range Interpretation Comments Ventricular rate (test 92 code = 253) Atrial rate (test code = 92 255) LA interval (test code = 146 266) QRSD interval (test code 74 = 260) QT interval (test code = 378 264) QTC interval (test code 467 = 265) P axis 1 (test code = 51 267) QRS axis 1 (test code = 35 268) T wave axis (test code = 36 270) EKG impression (test Normal sinus code = 273) rhythm-Septal infarct , age undetermined-Abnormal ECG-No previous ECGs available-Electronica lly Signed By Elroy ISRAEL, Bradford Frankel ([id number]) on 06/23/2020 10:36:31 AM Patricia MethodistSedimentation [id number] 06:19:01 Test Item Value Reference Range Interpretation Comments Sedimentation rate (test code = 17 0- 20 mm/hr 41374-7) [facility] MethodistC-reactive [id number] 04:58:59 Test Item Value Reference Range Interpretation Comments CRP (test code = 1988-5) 0.69 mg/dL 0-0.5 H Lab Interpretation (test code = Abnormal 35360-3) [facility] MethodistXR Abdomen 1 Vw [id number] 09:12:36Hm Interface, Radiology Results Incoming - 06/22/2020 9:15 AM CDTEXAMINATION: XR ABDOMEN 1 VW PORTABLECLINICAL HISTORY: sbo f u.COMPARISON: 06/20/2020IMPRESSION:NG tube remains in the gastric fundus. Stomach is nondistended. Increased small bowel dilatation measuring up to 6.2 cm suggesting high-grade SBO.No gross pneumatosis or free air.[facility]-[id number] MethodistCBC with platelet and differential 2020-06-21 05:56:41 Test Item Value Reference Range Interpretation Comments WBC (test code = 34447-2) 5.65 4.50- 11.00 k/uL RBC (test code = 32060-3) 3.71 m/uL 4.2-5.5 L HGB (test code = 718-7) 11.3 g/dL 12-16 L HCT (test code = 4544-3) 35.3 % 37-47 L MCV (test code = 787-2) 95.1 fL 82-100 MCH (test code = 785-6) 30.5 pg 27-34 MCHC (test code = 786-4) 32.0 g/dL 31-37 RDW - SD (test code = 56.2 fL 37-55 H 09140-6) MPV (test code = 61047-9) 9.0 fL 8.8-13.2 Platelet count (test code 492 150- 400 k/uL H = 35063-1) Nucleated RBC (test code 0.00 /100 WBC = 26685-3) Neutrophils (test code = 64.6 % 39-69 45584-5) Lymphocytes (test code = 21.1 % 25-45 L 94309-5) Monocytes (test code = 10.1 % 0-10 H 43250-3) Eosinophils (test code = 3.0 % 0-5 04355-8) Basophils (test code = 0.7 % 0-1 07115-4) Immature granulocytes 0.5 % 0-1 "Immat ure (test code = 65246-1) granul ocytes" (promyelocytes, myelocytes, metamyelocytes) Lab Interpretation (test Abnormal code = 21921-0) [facility] [id number] 05:16:14 Test Item Value Reference Range Interpretation Comments Interpretation (test Negative results do code = 8409278) not preclude 2019-nCoV infection and should not be used as the sole basis for treatment or other patient management decisions. Negative results must be combined with clinical observations, patient history, and epidemiological information. COVID-19 qualitative Not-Detected Not-Detected PCR result (test code = 76674-5) COVID-19 qualitative See link below for C ase Number: PCR (test code = PDF Lab Report [id number]) [place] [facility] Abdomen 1 [id number] 23:45:18Hm Interface, Radiology Results - 06/20/2020 11:48 PM CDTEXAMINATION: XR ABDOMEN 1 VWCLINICAL HISTORY: Nausea vomitingCOMPARISON: External CT abdomen pelvis 06/20/2020IMPRESSION:Gastric tube tip overlies the gastric fundus.Multiple dilated loops of small bowel consistent with small bowel obstruction seen on same-day CT. No free air. Punctate high density material throughout the stomach and proximal small bowel like represents ingested material/medication. Visualized lung bases are free of acute disease. Regional skeletal structures are within normal limits for age.[facility]-[id number] approved by radiology nurse/fellow: Tonja Davidson, Michele Vences M.D., personally reviewed the images and resident's/fellow's findings and agree with the final report.[facility] RockComprehensive metabolic [id number] 22:31:51 Test Item Value Reference Range Interpretation Comments Sodium (test code = 136 135- 148 mEq/L 2951-2) Potassium (test code = 3.6 3.5- 5.0 mEq/L 2823-3) Chloride (test code = 96 98- 112 mEq/L L 5-0) CO2 (test code = 2027-9) 24 24- 31 mEq/L Anion gap (test code = 16@ANIO 7- 15 mEq/L H 58816-5) BUN (test code = 3094-0) 8 mg/dL 8-23 Creatinine (test code = 0.76 mg/dL 0.5-0.9 2160-0) Glucose (test code = 121 mg/dL 65-99 H 2345-7) Calcium (test code = 9.5 mg/dL 8.8-10.2 68875-3) Protein (test code = 6.6 g/dL 6.3-8.3 -[place] n 2885-2) 4.6-7.0 g/dL1 week 4.4-7 .6 g/dL7 months-1y ear 5.1-7 .3 g/dL1-2 years 5.6-7 .5 g/dL>3 years 6.0-8 .0 g/uU22-397 6.3-8 .3 g/dL Albumin (test code = 3.4 g/dL 3.5-5 L 1751-7) A/G ratio (test code = 1.1 0.7-3.8 1759-0) Alkaline phosphatase 51 U/L 35-104 (test code = 6768-6) AST (test code = 1920-8) 23 U/L 10-35 ALT (test code = 1742-6) 8 U/L 5-50 Total bilirubin (test 0.3 mg/dL 0-1.2 code = 1975-2) Lab Interpretation (test Abnormal code = 00848-1) [place] MethodistLactic acid [id number] 22:24:41 Test Item Value Reference Range Interpretation Comments Lactic acid (test code = 65200-8) 1.0 mmol/L 0.5-2.2 [place] MethodistCT Abd/Pelvic External [id number] 22:19:38This exam was not acquired at a [facility] facility and has not been interpreted by a [facility] Provider. The exam was imported into our imaging system.[facility] W/PLT COUNT & AUTO [id number] 12:28:00 Test Item Value Reference Range Interpretation Comments WHITE BLOOD CELL COUNT (BEAKER) 11.4 K/ L 3.5-10.5 H (test code = 775) RED BLOOD CELL COUNT (BEAKER) 3.20 M/ L 3.93-5.22 L (test code = 761) HEMOGLOBIN (BEAKER) (test code = 9.8 GM/DL 11.2-15.7 L 410) HEMATOCRIT (BEAKER) (test code = 31.1 % 34.1-44.9 L 411) MEAN CORPUSCULAR VOLUME (BEAKER) 97.2 fL 79.4-94.8 H (test code = 753) MEAN CORPUSCULAR HEMOGLOBIN 30.6 pg 25.6-32.2 (BEAKER) (test code = 751) MEAN CORPUSCULAR HEMOGLOBIN CONC 31.5 GM/DL 32.2-35.5 L (BEAKER) (test code = 752) RED CELL DISTRIBUTION WIDTH 14.9 % 11.7-14.4 H (BEAKER) (test code = 412) PLATELET COUNT (BEAKER) (test 410 K/CU MM 150-450 code = 756) MEAN PLATELET VOLUME (BEAKER) 9.9 fL 9.4-12.3 (test code = 754) NUCLEATED RED BLOOD CELLS 0 /100 WBC 0-0 (BEAKER) (test code = 413) NEUTROPHILS RELATIVE PERCENT 83 % (BEAKER) (test code = 429) LYMPHOCYTES RELATIVE PERCENT 10 % (BEAKER) (test code = 430) MONOCYTES RELATIVE PERCENT 5 % (BEAKER) (test code = 431) EOSINOPHILS RELATIVE PERCENT 1 % (BEAKER) (test code = 432) BASOPHILS RELATIVE PERCENT 0 % (BEAKER) (test code = 437) NEUTROPHILS ABSOLUTE COUNT 9.42 K/ L 1.56-6.13 H (BEAKER) (test code = 670) LYMPHOCYTES ABSOLUTE COUNT 1.14 K/ L 1.18-3.74 L (BEAKER) (test code = 414) MONOCYTES ABSOLUTE COUNT (BEAKER) 0.62 K/ L 0.24-0.36 H (test code = 415) EOSINOPHILS ABSOLUTE COUNT 0.09 K/ L 0.04-0.36 (BEAKER) (test code = 416) BASOPHILS ABSOLUTE COUNT (BEAKER) 0.03 K/ L 0.01-0.08 (test code = 417) IMMATURE GRANULOCYTES-RELATIVE 1 % 0-1 PERCENT (BEAKER) (test code = 2801) PROTHROMBIN [id number] 09:30:00 Test Item Value Reference Range Interpretation Comments PROTIME (BEAKER) (test code = 14.8 seconds 11.7-14.7 H 759) INR (BEAKER) (test code = 370) 1.2 <=5.9 RECOMMENDED COUMADIN/WARFARIN INR THERAPY RANGESSTANDARD DOSE: 2.0 - 3.0 Includes: PROPHYLAXIS forvenous thrombosis, systemic embolization; TREATMENT for venous thrombosis and/or pulmonary embolus.HIGH RISK: Target INR is 2.5-3.5 for patients with mechanical heart valves.CBC W/PLT COUNT & AUTO DIFFERENTIAL 2018-11-04 05:58:00 Test Item Value Reference Range Interpretation Comments WHITE BLOOD CELL COUNT (BEAKER) 12.4 K/ L 3.5-10.5 H (test code = 775) RED BLOOD CELL COUNT (BEAKER) 3.11 M/ L 3.93-5.22 L (test code = 761) HEMOGLOBIN (BEAKER) (test code = 9.3 GM/DL 11.2-15.7 L 410) HEMATOCRIT (BEAKER) (test code = 29.6 % 34.1-44.9 L 411) MEAN CORPUSCULAR VOLUME (BEAKER) 95.2 fL 79.4-94.8 H (test code = 753) MEAN CORPUSCULAR HEMOGLOBIN 29.9 pg 25.6-32.2 (BEAKER) (test code = 751) MEAN CORPUSCULAR HEMOGLOBIN CONC 31.4 GM/DL 32.2-35.5 L (BEAKER) (test code = 752) RED CELL DISTRIBUTION WIDTH 14.9 % 11.7-14.4 H (BEAKER) (test code = 412) PLATELET COUNT (BEAKER) (test 324 K/CU MM 150-450 code = 756) MEAN PLATELET VOLUME (BEAKER) 9.6 fL 9.4-12.3 (test code = 754) NUCLEATED RED BLOOD CELLS 0 /100 WBC 0-0 (BEAKER) (test code = 413) NEUTROPHILS RELATIVE PERCENT 90 % (BEAKER) (test code = 429) LYMPHOCYTES RELATIVE PERCENT 5 % (BEAKER) (test code = 430) MONOCYTES RELATIVE PERCENT 4 % (BEAKER) (test code = 431) EOSINOPHILS RELATIVE PERCENT 0 % (BEAKER) (test code = 432) BASOPHILS RELATIVE PERCENT 0 % (BEAKER) (test code = 437) NEUTROPHILS ABSOLUTE COUNT 11.22 K/ L 1.56-6.13 H (BEAKER) (test code = 670) LYMPHOCYTES ABSOLUTE COUNT 0.60 K/ L 1.18-3.74 L (BEAKER) (test code = 414) MONOCYTES ABSOLUTE COUNT (BEAKER) 0.51 K/ L 0.24-0.36 H (test code = 415) EOSINOPHILS ABSOLUTE COUNT 0.02 K/ L 0.04-0.36 L (BEAKER) (test code = 416) BASOPHILS ABSOLUTE COUNT (BEAKER) 0.02 K/ L 0.01-0.08 (test code = 417) IMMATURE GRANULOCYTES-RELATIVE 1 % 0-1 PERCENT (BEAKER) (test code = 2801) CBC W/PLT COUNT & AUTO [id number] 21:19:00 Test Item Value Reference Range Interpretation Comments WHITE BLOOD CELL COUNT (BEAKER) 8.7 K/ L 3.5-10.5 (test code = 775) RED BLOOD CELL COUNT (BEAKER) 3.21 M/ L 3.93-5.22 L (test code = 761) HEMOGLOBIN (BEAKER) (test code = 9.6 GM/DL 11.2-15.7 L 410) HEMATOCRIT (BEAKER) (test code = 31.1 % 34.1-44.9 L 411) MEAN CORPUSCULAR VOLUME (BEAKER) 96.9 fL 79.4-94.8 H (test code = 753) MEAN CORPUSCULAR HEMOGLOBIN 29.9 pg 25.6-32.2 (BEAKER) (test code = 751) MEAN CORPUSCULAR HEMOGLOBIN CONC 30.9 GM/DL 32.2-35.5 L (BEAKER) (test code = 752) RED CELL DISTRIBUTION WIDTH 14.7 % 11.7-14.4 H (BEAKER) (test code = 412) PLATELET COUNT (BEAKER) (test 378 K/CU MM 150-450 code = 756) MEAN PLATELET VOLUME (BEAKER) 9.7 fL 9.4-12.3 (test code = 754) NUCLEATED RED BLOOD CELLS 0 /100 WBC 0-0 (BEAKER) (test code = 413) NEUTROPHILS RELATIVE PERCENT 69 % (BEAKER) (test code = 429) LYMPHOCYTES RELATIVE PERCENT 19 % (BEAKER) (test code = 430) MONOCYTES RELATIVE PERCENT 8 % (BEAKER) (test code = 431) EOSINOPHILS RELATIVE PERCENT 2 % (BEAKER) (test code = 432) BASOPHILS RELATIVE PERCENT 0 % (BEAKER) (test code = 437) NEUTROPHILS ABSOLUTE COUNT 6.03 K/ L 1.56-6.13 (BEAKER) (test code = 670) LYMPHOCYTES ABSOLUTE COUNT 1.69 K/ L 1.18-3.74 (BEAKER) (test code = 414) MONOCYTES ABSOLUTE COUNT (BEAKER) 0.72 K/ L 0.24-0.36 H (test code = 415) EOSINOPHILS ABSOLUTE COUNT 0.19 K/ L 0.04-0.36 (BEAKER) (test code = 416) BASOPHILS ABSOLUTE COUNT (BEAKER) 0.02 K/ L 0.01-0.08 (test code = 417) IMMATURE GRANULOCYTES-RELATIVE 1 % 0-1 PERCENT (BEAKER) (test code = 2801) HEMOGLOBIN [id number] 07:37:00 Test Item Value Reference Range Interpretation Comments HEMOGLOBIN A1C (BEAKER) (test code = 5.9 % 4.3-6.1 368) TROPONIN [id number] 05:16:00 Test Item Value Reference Range Interpretation Comments TROPONIN I (BEAKER) (test code = 0.06 ng/mL 0.00-0.03 H 397) Troponin I (TnI) levels must be interpreted [...] failure, acidosis, acute neurological disease, and persistent tachyarrhythmia.[id number] 05:07:00 Test Item Value Reference Range Interpretation Comments MAGNESIUM (BEAKER) (test code = 1.9 mg/dL 1.6-2.6 627) BASIC METABOLIC [id number] 05:07:00 Test Item Value Reference Range Interpretation Comments SODIUM (BEAKER) 141 meq/L 136-145 (test code = 381) POTASSIUM (BEAKER) 4.0 meq/L 3.5-5.1 (test code = 379) CHLORIDE (BEAKER) 111 meq/L 98-107 H (test code = 382) CO2 (BEAKER) (test 24 meq/L 22-29 code = 355) BLOOD UREA NITROGEN 11 mg/dL 7-21 (BEAKER) (test code = 354) CREATININE (BEAKER) 0.66 mg/dL 0.57-1.25 (test code = 358) GLUCOSE RANDOM 91 mg/dL 70-105 (BEAKER) (test code = 652) CALCIUM (BEAKER) 8.8 mg/dL 8.4-10.2 (test code = 697) EGFR (BEAKER) (test 92 mL/min/1.73 ESTIMA MARNI GFR IS code = 1092) sq m NOT ACCURATE CREATININE CLEARANCE IN PREDICTING GLOMERULAR FILTRATION RATE . ESTIMATED GFR I S NOT APPLICABLE FOR DIALYSIS PATIEN TS. CBC W/PLT COUNT & AUTO [id number] 04:51:00 Test Item Value Reference Range Interpretation Comments WHITE BLOOD CELL COUNT (BEAKER) 7.6 K/ L 3.5-10.5 (test code = 775) RED BLOOD CELL COUNT (BEAKER) 3.92 M/ L 3.93-5.22 L (test code = 761) HEMOGLOBIN (BEAKER) (test code = 11.7 GM/DL 11.2-15.7 410) HEMATOCRIT (BEAKER) (test code = 37.9 % 34.1-44.9 411) MEAN CORPUSCULAR VOLUME (BEAKER) 96.7 fL 79.4-94.8 H (test code = 753) MEAN CORPUSCULAR HEMOGLOBIN 29.8 pg 25.6-32.2 (BEAKER) (test code = 751) MEAN CORPUSCULAR HEMOGLOBIN CONC 30.9 GM/DL 32.2-35.5 L (BEAKER) (test code = 752) RED CELL DISTRIBUTION WIDTH 15.0 % 11.7-14.4 H (BEAKER) (test code = 412) PLATELET COUNT (BEAKER) (test 415 K/CU MM 150-450 code = 756) MEAN PLATELET VOLUME (BEAKER) 9.7 fL 9.4-12.3 (test code = 754) NUCLEATED RED BLOOD CELLS 0 /100 WBC 0-0 (BEAKER) (test code = 413) NEUTROPHILS RELATIVE PERCENT 69 % (BEAKER) (test code = 429) LYMPHOCYTES RELATIVE PERCENT 20 % (BEAKER) (test code = 430) MONOCYTES RELATIVE PERCENT 7 % (BEAKER) (test code = 431) EOSINOPHILS RELATIVE PERCENT 3 % (BEAKER) (test code = 432) BASOPHILS RELATIVE PERCENT 0 % (BEAKER) (test code = 437) NEUTROPHILS ABSOLUTE COUNT 5.30 K/ L 1.56-6.13 (BEAKER) (test code = 670) LYMPHOCYTES ABSOLUTE COUNT 1.54 K/ L 1.18-3.74 (BEAKER) (test code = 414) MONOCYTES ABSOLUTE COUNT (BEAKER) 0.54 K/ L 0.24-0.36 H (test code = 415) EOSINOPHILS ABSOLUTE COUNT 0.21 K/ L 0.04-0.36 (BEAKER) (test code = 416) BASOPHILS ABSOLUTE COUNT (BEAKER) 0.03 K/ L 0.01-0.08 (test code = 417) IMMATURE GRANULOCYTES-RELATIVE 0 % 0-1 PERCENT ([facility]) (test code = 2801) [id number] 23:52:00 Test Item Value Reference Range Interpretation Comments ACTIVATED CLOTTING TIME 142 sec TEST ED AT [place] [id number] ([facility]) (test code = ALVARO Crook [place] [address]) [id number] 23:52:00 Test Item Value Reference Range Interpretation Comments ACTIVATED CLOTTING TIME 147 sec TEST ED AT [place] [address] ([facility]) (test code = ALVARO Crook [place] [address]) [id number] 23:52:00 Test Item Value Reference Range Interpretation Comments ACTIVATED CLOTTING TIME 164 sec TEST ED AT [place] [address] ([facility]) (test code = ALVARO Crook [place] [address]) [id number] TROPONIN [id number] 23:03:00 Test Item Value Reference Range Interpretation Comments TROPONIN I ([facility]) (test code = 0.08 ng/mL 0.00-0.03 H 397) Troponin I (TnI) levels must be interpreted [...] failure, acidosis, acute neurological disease, and persistent tachyarrhythmia.[id number] 17:46:00 Test Item Value Reference Range Interpretation Comments ACTIVATED CLOTTING TIME 263 sec TEST ED AT [place] [address] ([facility]) (test code = ALVARO Crook [place] [address]) [id number] 17:46:00 Test Item Value Reference Range Interpretation Comments ACTIVATED CLOTTING TIME 252 sec TEST ED AT [place] [address] ([facility]) (test code = KYGA Ambreen [place] [address]) [id number] TSH/FREE T4 IF [id number] 16:53:00 Test Item Value Reference Range Interpretation Comments THYROID STIMULATING HORMONE 1.01 uIU/mL 0.35-4.94 ([facility]) (test code = 772) TROPONIN [id number] 16:39:00 Test Item Value Reference Range Interpretation Comments TROPONIN I (BEAKER) (test code = 0.06 ng/mL 0.00-0.03 H 397) Troponin I (TnI) levels must be interpreted [...] disease, and persistent tachyarrhythmia.B-TYPE NATRIURETIC FACTOR (BNP) 2018-11-02 16:39:00 Test Item Value Reference Range Interpretation Comments B-TYPE NATRIURETIC PEPTIDE (BEAKER) 92 pg/mL 0-100 (test code = 700) LIPID [id number] 16:33:00 Test Item Value Reference Range Interpretation Comments TRIGLYCERIDES (BEAKER) (test code = 96 mg/dL 540) CHOLESTEROL (BEAKER) (test code = 188 mg/dL 631) HDL CHOLESTEROL (BEAKER) (test code 53 mg/dL = 976) LDL CHOLESTEROL CALCULATED (BEAKER) 116 mg/dL (test code = 633) Triglyceride Reference Range: Low Risk <150 Borderline 150-199 High Risk 200-499 Very High Risk >=500Cholesterol Reference Range: Low Risk <200 Borderline 200-239 High Risk >240HDL Cholesterol Reference Range: Low Risk >=60 High Risk <40LDL Cholesterol Reference Range: Optimal <100 Near Optimal 100-129 Borderline 130-159 High 160-189 Very High >=[id number] 16:33:00 Test Item Value Reference Range Interpretation Comments MAGNESIUM (BEAKER) (test code = 2.0 mg/dL 1.6-2.6 627) COMPREHENSIVE METABOLIC [id number] 16:33:00 Test Item Value Reference Range Interpretation Comments TOTAL PROTEIN 6.7 gm/dL 6.0-8.3 (BEAKER) (test code = 770) ALBUMIN (BEAKER) 4.0 g/dL 3.5-5.0 (test code = 1145) ALKALINE PHOSPHATASE 23 U/L 40-150 L (BEAKER) (test code = 346) BILIRUBIN TOTAL 0.6 mg/dL 0.2-1.2 (BEAKER) (test code = 377) SODIUM (BEAKER) (test 141 meq/L 136-145 code = 381) POTASSIUM (BEAKER) 3.8 meq/L 3.5-5.1 (test code = 379) CHLORIDE (BEAKER) 106 meq/L 98-107 (test code = 382) CO2 (BEAKER) (test 28 meq/L 22-29 code = 355) BLOOD UREA NITROGEN 11 mg/dL 7-21 (BEAKER) (test code = 354) CREATININE (BEAKER) 0.68 mg/dL 0.57-1.25 (test code = 358) GLUCOSE RANDOM 87 mg/dL 70-105 (BEAKER) (test code = 652) CALCIUM (BEAKER) 9.3 mg/dL 8.4-10.2 (test code = 697) AST (SGOT) (BEAKER) 18 U/L 5-34 (test code = 353) ALT (SGPT) (BEAKER) < U/L 6-55 L (test code = 347) EGFR (BEAKER) (test 89 mL/min/1.73 ESTIMA MARNI GFR IS code = 1092) sq m NOT ACCURATE CREATININE CLEARANCE IN PREDICTING GLOMERULAR FILTRATION RATE . ESTIMATED GFR I S NOT APPLICABLE FOR DIALYSIS PATIEN TS. [id number] 16:31:00 Test Item Value Reference Range Interpretation Comments PARTIAL THROMBOPLASTIN TIME 35.6 seconds 22.5-36.0 (BEAKER) (test code = 760) PROTHROMBIN TIME/[id number] 16:30:00 Test Item Value Reference Range Interpretation Comments PROTIME (BEAKER) (test code = 13.5 seconds 11.7-14.7 759) INR (BEAKER) (test code = 370) 1.0 <=5.9 RECOMMENDED COUMADIN/WARFARIN INR THERAPY RANGESSTANDARD DOSE: 2.0 - 3.0 Includes: PROPHYLAXIS forvenous thrombosis, systemic embolization; TREATMENT for venous thrombosis and/or pulmonary embolus.HIGH RISK: Target INR is 2.5-3.5 for patients with mechanical heart valves.BLOOD BANK [id number] 20:30:00 Negative (09/20/16 2:30 PM)[facility]
[2020-08-01] MEDS ORDERED: ONDANSETRON 4 MG/2 ML VIAL ONE (22:28)
[2020-08-01] MEDS ORDERED: FAMOTIDINE 20 MG/2 ML VIAL IV ONE (22:28)
[2020-08-01 22:39] LABS: Absolute Lymphocytes (CBC) 1.7 K/uL (0.7-4.9); Basophils % 0.2 % (0-1.3); Hematocrit 28.9 % (36.0-45.0); Lymphocytes % 18.6 % (15.3-44.8); MPV 7.4 fL (7.6-11.3); RBC Red Blood Cell Count 3.16 M/uL (3.86-4.86)
[2020-08-01 22:50] LABS: ALT/SGPT 11 U/L (12-78); AST/SGOT 18 U/L (15-37); Albumin 2.3 g/dL (3.4-5.0); Alkaline Phosphatase 131 U/L (45-117); BUN Blood Urea Nitrogen 8 mg/dL (7-18); Bicarbonate 31 mmol/L (21-32); Bilirubin Direct < 0.1 mg/dL (0-0.2); Bilirubin Total 0.2 mg/dL (0.2-1.0); Glucose Level 121 mg/dL (74-106); Lipase 132 U/L (73-393); Potassium 3.6 mmol/L (3.5-5.1); Protein, Total 6.8 g/dL (6.4-8.2); Sodium Level 140 mmol/L (136-145)
[2020-08-01 23:46] LABS: Urine Blood NEGATIVE (NEG); Urine Glucose NEGATIVE (NEG); Urine Protein NEGATIVE (NEG); Urine pH 6.5 (5.0-7.0)
[2020-08-01 23:56] LABS: Urine Bacteria <20 /HPF (<20); Urine Culture Reflex Order NOT NEEDED; Urine RBC NONE SEEN /HPF (NONE SEEN); Urine Urothelial Cells <5 /HPF (NONE SEEN)
[2020-08-02 00:34] LABS: Blood Morphology Comment NOT SEEN (NOT SEEN); Platelet Estimate INCR; White Blood Cell Scan OK (OK)
[2020-08-02] MEDS ORDERED: CIPROFLOXACIN 400mg IV 400 MG/200 ML BAG IV ONE (00:46)
[2020-08-02] MEDS ORDERED: METRONIDAZOLE 500mg IVPB 500 MG/100 ML BAG IV ONE (00:46)
--- NOTE | 2020-08-02 01:32 | EDPHYS ---
Physician Documentation [facility] Name: Lola Elliott Age: 60 yrs Sex: Female : 1960 Arrival Date: 08/01/2020 Time: 20:28 Bed 5 Private MD: Emile Rushing HPI: 08/01 22:05 This 60 yrs old Female presents to ER via Ambulatory with complaints of cp Abdominal Pain, Fever, MOUTH SORES. 22:05 The patient presents with abdominal pain. Onset: The symptoms/episode began/occurred 8 cp day(s) ago. Associated signs and symptoms: Pertinent positives: diarrhea, fever. Historical: - Allergies: 20:45 PENICILLINS; ll1 - PMHx: 20:45 Crohn's; Myocardial infarction; Small bowel CA; ll1 - PSHx: 20:45 colon resection; Heart stents; ll1 - Immunization history:: Flu vaccine is not up to date. - Social history:: Smoking status: Patient denies any tobacco usage or history of. ROS: 22:10 Constitutional: Negative for body aches, chills, fever, poor PO intake. cp 22:10 Eyes: Negative for injury, pain, redness, and discharge. cp 22:10 ENT: Negative for ear pain, sore throat, difficulty swallowing, difficulty handling secretions. 22:10 Cardiovascular: Negative for chest pain, palpitations. 22:10 Respiratory: Negative for cough, shortness of breath, wheezing. 22:10 Abdomen/GI: Positive for abdominal pain, diarrhea, abdominal distension, Negative for vomiting, constipation, black/tarry stool, rectal bleeding. 22:10 Back: Negative for radiated pain. 22:10 : Negative for urinary symptoms. 22:10 Neuro: Negative for altered mental status, headache, weakness. 22:10 All other systems are negative. Exam: 22:15 Constitutional: The patient appears in no acute distress, alert, awake, cp non-diaphoretic, non-toxic, well developed, well nourished. 22:15 Head/Face: Normocephalic, atraumatic. cp 22:15 Eyes: Periorbital structures: appear normal, Conjunctiva: normal, no exudate, no injection, Sclera: no appreciated abnormality, Lids and lashes: appear normal, bilaterally. 22:15 ENT: External ear(s): are unremarkable, Nose: is normal, Posterior pharynx: Airway: no evidence of obstruction, patent. 22:15 Chest/axilla: Inspection: normal, Palpation: is normal, no crepitus, no tenderness. 22:15 Cardiovascular: Rate: normal, Rhythm: regular, Edema: is not appreciated, JVD: is not appreciated. 22:15 Respiratory: the patient does not display signs of respiratory distress, Respirations: normal, no use of accessory muscles, no retractions, labored breathing, is not present, Breath sounds: are clear throughout, no decreased breath sounds, no stridor, no wheezing. 22:15 Abdomen/GI: Inspection: distension, is not seen, surgical incisions appear w/o erythema and/or dehiscence, Bowel sounds: active, all quadrants, Palpation: soft, in all quadrants, mild abdominal tenderness, in all quadrants. 22:15 Skin: no rash present. 22:15 Neuro: Orientation: to person, place \T\ time. Mentation: is normal. Vital Signs: 20:43 BP 120 / 67; Pulse 96; Resp 18; Temp 98.3; Pulse Ox 97% ; Pain 8/10; ll1 21:55 BP 130 / 63; Pulse 90; Resp 16 S; Pulse Ox 99% on R/A; bb 23:00 BP 108 / 68; Pulse 68; Resp 16 S; Pulse Ox 98% on R/A; bb 08/02 00:00 BP 109 / 57; Pulse 90; Resp 16 S; Pulse Ox 98% on R/A; bb 01:00 BP 121 / 86; Pulse 89; Resp 18; Pulse Ox 98% on R/A; rv 01:30 BP 117 / 69; Pulse 89; Resp 18; Pulse Ox 100% on R/A; rv MDM: 08/01 21:55 Patient medically screened. cp 08/02 00:20 Data reviewed: vital signs, nurses notes, lab test result(s), radiologic studies, CT cp scan, I have discussed the patient's presentation/case with the attending Emergency Department Physician;. 00:20 Physician consultation: DR Modi, colorectal surgeon, who recommends antibiotics, cp discharge and will f/u with patient later today. 08/01 21:57 Order name: Basic Metabolic Panel; Complete Time: 23:29 cp 08/01 23:29 Interpretation: Normal except: GLUC 121. 08/01 21:57 Order name: CBC with Diff 08/01 22:45 Interpretation: Normal except: RBC 3.16; HGB 9.7; HCT 28.9; PLT 948; RDW 16.8; MPV 7.4. 08/01 21:57 Order name: Hepatic Function; Complete Time: 23:29 08/01 23:29 Interpretation: Normal except: ALT 11; ALK 131; ALB 2.3; GLOB 4.5; A/G 0.5. 08/01 21:57 Order name: Lipase; Complete Time: 23:29 08/01 21:57 Order name: Urine Microscopic Only; Complete Time: 00:15 08/01 21:59 Order name: Lactate; Complete Time: 23:29 08/01 21:59 Order name: Procalcitonin; Complete Time: 00:15 08/01 21:59 Order name: Blood Culture Adult (2) 08/01 22:31 Order name: Magnesium; Complete Time: 23:29 [facility] 08/01 22:44 Order name: CBC Smear Scan [facility] 08/01 23:38 Order name: Urine Dipstick--Ancillary (enter results); Complete Time: 00:15 [facility] 08/01 21:57 Order name: IV Saline Lock; Complete Time: 22:39 08/01 21:57 Order name: Labs collected and sent; Complete Time: 22:39 08/01 21:57 Order name: Urine Dipstick-Ancillary (obtain specimen); Complete Time: 01:12 08/01 21:57 Order name: XRAY Chest (1 view) 08/01 22:46 Order name: CT Abd/Pelvis - IV Contrast Only cp Administered Medications: 08/01 22:30 Drug: Pepcid 20 mg Route: IVP; Site: left antecubital; bb 22:39 Drug: Zofran (Ondansetron) 4 mg Route: IVP; Site: left antecubital; bb 08/02 00:44 Drug: metroNIDAZOLE 500 mg Volume: 100 ml; Route: IVPB; Infused Over: 30 mins; Site: bb left antecubital; :58 Follow up: Response: No adverse reaction bb :58 Follow up: IV Status: Completed infusion; IV Intake: 100ml bb 00:58 Drug: Ciprofloxacin 400 mg Volume: 200 ml; Route: IVPB; Infused Over: 60 mins; Site: bb left antecubital; :58 Follow up: Response: No adverse reaction bb :58 Follow up: IV Status: Completed infusion; IV Intake: 100ml bb Disposition: 11:07 Co-signature as Attending Physician, Emile Stephenson MD I agree with the assessment and [facility] plan of care. Disposition: 08/02/20 01:32 Discharged to Home. Impression: Unspecified abdominal pain, Diarrhea, unspecified. - Condition is Stable. - Discharge Instructions: Abdominal Pain, Adult, Diarrhea, Adult. - Prescriptions for Cipro 500 mg Oral Tablet - take 1 tablet by ORAL route every 12 hours for 10 days; 20 tablet. Metronidazole 500 mg Oral Tablet - take 1 tablet by ORAL route every 8 hours; 30 tablet. Zofran 4 mg Oral Tablet - take 1 tablet by ORAL route every 12 hours As needed; 20 tablet. - Medication Reconciliation Form, Thank You Letter, Antibiotic Education, Prescription Opioid Use form. - Follow up: Private Physician; When: Today; Reason: Recheck today's complaints, DR Modi. - Problem is new. - Symptoms have improved. Signatures: Dispatcher [employer] [facility] Emile Stephenson MD MD cha Ballard, Brenda, RN RN Emile Vega PA PA cp Lewis, Lynsay, RN RN ll1 Corrections: (The following items were deleted from the chart) 08/01 22:30 22:00 MAGNESIUM+C.LAB.BRZ ordered. [facility] 08/02 02:30 01:32 08/02/2020 01:32 Discharged to Home. Impression: Unspecified abdominal pain; bb Diarrhea, unspecified. Condition is Stable. Forms are Medication Reconciliation Form, Thank You Letter, Antibiotic Education, Prescription Opioid Use. Follow up: Private Physician; When: Today; Reason: Recheck today's complaints, DR Modi. Problem is new. Symptoms have improved. cp
--- NOTE | 2020-08-02 01:32 | ER ---
Nurse's Notes [facility] Name: Lola Elliott Age: 60 yrs Sex: Female : 1960 Arrival Date: 08/01/2020 Time: 20:28 Bed 5 Private MD: Diagnosis: Unspecified abdominal pain;Diarrhea, unspecified Presentation: 08/01 20:43 Chief complaint: Patient states: Abdominal pain with diarrhea and bloating for 8 days. ll1 Fever up to 100.[address] Modi sent here in for WBC check and CT scan. Reports sores in her mouth. Coronavirus screen: Client denies travel out of the [place] in the last 14 days. At this time, the client does not indicate any symptoms associated with coronavirus-19. Ebola Screen: Patient denies travel to an Ebola-affected area in the 21 days before illness onset. Initial Sepsis Screen: Does the patient meet any 2 criteria? HR > 90 bpm. Risk Assessment: Do you want to hurt yourself or someone else? Patient reports no desire to harm self or others. Onset of symptoms was August 03, 2020. 20:43 Method Of Arrival: Ambulatory ll1 20:43 Acuity: NATHAN 3 ll1 Historical: - Allergies: 20:45 PENICILLINS; ll1 - PMHx: 20:45 Crohn's; Myocardial infarction; Small bowel CA; ll1 - PSHx: 20:45 colon resection; Heart stents; ll1 - Immunization history:: Flu vaccine is not up to date. - Social history:: Smoking status: Patient denies any tobacco usage or history of. Screenin:30 Abuse screen: Denies threats or abuse. Nutritional screening: No deficits noted. bb Tuberculosis screening: No symptoms or risk factors identified. Fall Risk None identified. Assessment: 21:30 General: Appears in no apparent distress. slender, well groomed, Behavior is calm, bb cooperative. Pain: Complains of pain in abdomen. Neuro: Level of Consciousness is awake, alert, obeys commands, Oriented to person, place, time, situation. Cardiovascular: Capillary refill < 3 seconds Patient's skin is warm and dry. Respiratory: Airway is patent Respiratory effort is even, unlabored, Respiratory pattern is regular. GI: Abdomen is round slightly distended, incision sites intact, no erythema noted. Derm: Skin is pink, warm \T\ dry. Musculoskeletal: Circulation, motion, and sensation intact. 22:30 Reassessment: No changes from previously documented assessment. bb 23:30 Reassessment: pt ambulated with steady gait to bathroom denies dizziness. bb 08/02 00:08 Reassessment: Patient is alert, oriented x 3, equal unlabored respirations, skin bb warm/dry/pink. pt awaiting CT results, family at bedside. 00:44 Reassessment: Patient is alert, oriented x 3, equal unlabored respirations, skin bb warm/dry/pink. pt resting quietly Dr Stephenson at bedside to discuss findings and recommendations. IV site intact, patent, with fluids infusing, family at bedside. 02:28 Reassessment: Patient is alert, oriented x 3, equal unlabored respirations, skin bb warm/dry/pink. pt verbalized understanding of and agrees to plan of care discharge instructions given pt instructed her surgeon would contact her today for an appointment, pt ambulated with steady gait to exit accompanied by spouse. Vital Signs: 08/01 20:43 BP 120 / 67; Pulse 96; Resp 18; Temp 98.3; Pulse Ox 97% ; Pain 8/10; ll1 21:55 BP 130 / 63; Pulse 90; Resp 16 S; Pulse Ox 99% on R/A; bb 23:00 BP 108 / 68; Pulse 68; Resp 16 S; Pulse Ox 98% on R/A; bb 08/02 00:00 BP 109 / 57; Pulse 90; Resp 16 S; Pulse Ox 98% on R/A; bb 01:00 BP 121 / 86; Pulse 89; Resp 18; Pulse Ox 98% on R/A; rv 01:30 BP 117 / 69; Pulse 89; Resp 18; Pulse Ox 100% on R/A; rv ED Course: 08/01 20:28 Patient arrived in ED. cf2 20:44 Triage completed. ll1 20:45 Arm band placed on Patient placed in an exam room, on a stretcher. ll1 21:30 Patient has correct armband on for positive identification. Placed in gown. Bed in low bb position. Call light in reach. Side rails up X2. Adult w/ patient. Pulse ox on. NIBP on. Warm blanket given. 21:43 Shun Jackson RN is Primary Nurse. rv 21:51 Emile Cruz PA is PHCP. cp 21:51 Emile Stephenson MD is Attending Physician. cp 22:23 XRAY Chest (1 view) In Process Unspecified. EDMS 22:35 Inserted saline lock: 22 gauge in left antecubital area, using aseptic technique. Blood ds4 collected. 23:19 CT Abd/Pelvis - IV Contrast Only In Process Unspecified. EDMS 23:45 Urine collected: clean catch specimen, clear. bb 08/02 02:30 No provider procedures requiring assistance completed. IV discontinued, intact, bb bleeding controlled, No redness/swelling at site. Pressure dressing applied. Administered Medications: 08/01 22:30 Drug: Pepcid 20 mg Route: IVP; Site: left antecubital; bb 22:39 Drug: Zofran (Ondansetron) 4 mg Route: IVP; Site: left antecubital; bb 08/02 00:44 Drug: metroNIDAZOLE 500 mg Volume: 100 ml; Route: IVPB; Infused Over: 30 mins; Site: left antecubital; 01:58 Follow up: Response: No adverse reaction bb 01:58 Follow up: IV Status: Completed infusion; IV Intake: 100ml bb 00:58 Drug: Ciprofloxacin 400 mg Volume: 200 ml; Route: IVPB; Infused Over: 60 mins; Site: left antecubital; 01:58 Follow up: Response: No adverse reaction bb 01:58 Follow up: IV Status: Completed infusion; IV Intake: 100ml bb Intake: 01:58 IV: 100ml; Total: 100ml. bb 01:58 IV: 100ml; Total: 200ml. bb Outcome: 01:32 Discharge ordered by MD. cp 02:30 Discharged to home ambulatory, with family. bb 02:30 Condition: stable 02:30 Discharge instructions given to patient, Instructed on discharge instructions, follow up and referral plans. medication usage, Demonstrated understanding of instructions, follow-up care, medications, Prescriptions given X 3. 02:30 Patient left the ED. bb Signatures: Dispatcher [employer] EDMS Akua Perez RN RN bb Humberto Jimenez ds4 Emile Cruz PA PA cp Shun Jackson RN RN rv Frederick Tariq 2 Di Rashid RN RN ll1 Corrections: (The following items were deleted from the chart) 08/01 21:42 20:43 Chief complaint: Patient states: Abdominal pain with diarrhea and bloating for [address] Modi sent here in for WBC check and CT scan. ll1
[2020-08-02 02:38] VITALS: TEMP 98.3
[2020-08-02 02:44] VITALS: BP 117/69; O2SAT 100
--- NOTE | 2020-08-02 08:17 | RAD REPORT ---
EXAM DESCRIPTION: Mariaa Single View08/01/2020 10:25 pm CLINICAL HISTORY: Fever COMPARISON: 2018 FINDINGS: The lungs appear clear of acute infiltrate. The heart is normal size IMPRESSION: No acute abnormalities displayed
--- NOTE | 2020-08-02 09:52 | RAD REPORT ---
EXAM DESCRIPTION: CT - Abdomen Pelvis W Contrast - 08/02/2020 7:00 am COMPARISON: CT abdomen pelvis June 20, 2020 CLINICAL HISTORY: Diarrhea, abdominal pain TECHNIQUE: Multiple helical axial images were obtained through the abdomen and pelvis using intraven ous contrast. Coronal and sagittal reformatted images were obtained. All CT scans at this facility use dose modulation, iterative reconstruction, and/or weight-based dosi ng when appropriate to reduce radiation dose to as low as reasonably achievable. FINDINGS: Lung bases: Breast implants are present. Liver: Homogenous attenuation is noted. Gallbladder/biliary: A few small stones in the gallbladder are present. Gallbladder appears normal in size. No evidence of pericholecystic inflammation. Mild biliary ductal dilatation in the right hepat ic lobe is again demonstrated. No evidence of common bile duct dilatation. Pancreas: Unremarkable. No evidence of ductal enlargement. Spleen: Appears unremarkable. No splenomegaly. Adrenals: Unremarkable. Kidneys and ureters: No evidence of hydronephrosis. Normal enhancement. A few subcentimeter hypoden sities in the right kidney are present suggestive of cysts. Bladder: Punctate focus of air in the bladder is present. Pelvic organs: Unremarkable. Bowel: Multiple dilated fluid containing small bowel loops are demonstrated with air-fluid levels. Th ere appears to be a transition between dilated and decompressed small bowel in the right lower abdome n in the region of anastomotic sutures concerning for distal small bowel obstruction. There is a 3.5 cm x 3 cm fluid/air collection within the mesentery near the small bowel anastomosis with mild adjace nt stranding of uncertain sterility (series 501, image 58). Small bowel distal to the anastomotic sut ures appears mildly thickened. Appendix is not visualized. Vasculature: Mild aortic atherosclerosis is demonstrated. Peritoneum: No free air. There is a small amount of free fluid in the pelvis. Lymph nodes: Unremarkable. Soft tissues: Small amount of air within the ventral abdominal wall noted. Bones: Degenerative changes of the lumbar spine noted. There is slight anterior subluxation of L3 rel ative to L4. IMPRESSION: 1. Findings suggestive of distal small bowel obstruction with transition point in the ri ght lower abdomen near anastomotic sutures. Small fluid/air collection near the distal small bowel an astomosis of uncertain sterility which may be related to recent surgery versus developing abscess, an astomotic dehiscence not excluded. 2. Thickened appearance of the distal small bowel distal to the anastomosis which may be related to e nteritis versus contraction. 3. Intrahepatic biliary ductal dilatation in the right hepatic lobe again demonstrated which could be related to intrahepatic biliary stricture or obstructive lesion, consider nonemergent follow-up MRCP . 4. Cholelithiasis. 5. Punctate focus of air in the bladder which is nonspecific and can be seen in recent catheterizatio n or urinary tract infection. THIS REPORT CONTAINS FINDINGS THAT MAY BE CRITICAL TO PATIENT CARE: The findings were verbally discu ssed via telephone conference with GUILHERME Cruz by Dr. Gonzalez at 0010 hours central time on July 122019. The results were acknowledged and understood. Electronically signed by: Tavo Gonzalez MD 08/02/2020 12:10 AM CDT Due to temporary technical issues with the PACS/Fluency reporting system, reports are being signed by the in house radiologist without review as a courtesy to ensure prompt reporting. The interpreting r adiologist is fully responsible for the content of the report.
== END 2020-08-02 02:30 | disposition home or self-care (01) ==
LOC: ER 20:25
DX: R19.7 Diarrhea, unspecified (principal); R50.9 Fever, unspecified; I25.2 Old myocardial infarction; Z85.068 Personal history of other malignant neoplasm of small intestine; Z95.818 Presence of other cardiac implants and grafts; Z88.0 Allergy status to penicillin
CPT/HCPCS: 87040 ×2; 85025; 80048; 36415; 83735; 80076; 83605; 83690; 84145; 74177; 71045; Q9967; J2405; J0744; 81003; 81015

== ENCOUNTER 2021-09-06 10:22 | Day surgery (SDC) | payer OTHER ==
[2021-09-06] MEDS ORDERED: Ringers Lactate 1,000 ML IV ONE (11:13)
[2021-09-06] MEDS ORDERED: LIDOCAINE 1% MPF 5 ML VIAL ONE (12:17)
[2021-09-06] MEDS ORDERED: propofoL 200 MG/20 ML VIAL IV ONE (12:17)
--- NOTE | 2021-09-06 12:49 | ENDO RPT ---
[address], [address] COLONOSCOPY PROCEDURE REPORT EXAM DATE: 09/06/2021 PATIENT NAME: Lola Elliott MR #: [id number] BIRTHDATE: 1960 ATTENDING: Nimesh Lawson Dr STATUS: outpatient [employer] SUPERVISOR: Madison Ansari RN and Maria Teresa Chase CST INDICATIONS: The patient is a 61 yr old Female here for a colonoscopy due to personal history of colon polyps, extent of chronic inflammatory bowel disease, abdominal pain, change in bowel habits, unexplained chronic diarrhea, and history of small bowel cancer with surgical resection PROCEDURE PERFORMED: Colonoscopy with biopsy MEDICATIONS: Per Anesthesia. ESTIMATED BLOOD LOSS: None CONSENT: The patient understands the risks and benefits of the procedure and understands that these risks include, but are not limited to: sedation, allergic reaction, infection, perforation and/or bleeding. Alternative means of evaluation and treatment include, among others: physical exam, x-rays, and/or surgical intervention. The patient elects to proceed with this endoscopic procedure. DESCRIPTION OF PROCEDURE: During intra-op preparation period all mechanical medical equipment was checked for proper function. Hand hygiene and appropriate measures for infection prevention was taken. Procedure, possible complications, alternatives including, but not limited to possibility of bleeding, perforation, tear, infection, sepsis, need for surgery, need for blood transfusion, were explained to the patient. After the risks, benefits and alternatives of the procedure were thoroughly explained, Informed consent was verified, confirmed and timeout was successfully executed by the treatment team. The patient was placed in the left lateral position. A digital rectal exam was performed and revealed no abnormalities of the rectum. After appropriate level of anesthesia, the scope was passed. The EC-[id number] ([id number]) endoscope was introduced through the anus and advanced to the ileum. The quality of the prep was good. The instrument was then slowly withdrawn as the colon was fully examined. Scope withdrawal time was 9 minutes. COLON FINDINGS: Three areas of inflammation / edema / erythema / loss of vascular pattern / ulcers / nodular mucosa in the terminal ileum with largest being a medium sized, 3 x 1 cm, third-circumferential abnormal mucosa was found in the terminal ileum. The mucosa was edematous, erythematous, nodular, friable, ulcerated and had loss of vascularity and deep ulcers. Multiple biopsies were performed; the other two areas were 2 and 1.5 cm in size in the ileum; ileum proximal to the mild ileo-colonic anastomosis was mildly dilated with flattening of the mucosa (making differential of small bowel versus colon mucosa somewhat difficult. There was evidence of a prior end-to-end ileocolonic surgical anastomosis with mild stricture / inflammation / 3 mm ulcer in the transverse colon. Mild diverticulosis was noted in the sigmoid colon. No bleeding was noted from the diverticulosis. Random biopsies of the terminal ileum / colon / rectum obtained. Small internal hemorrhoids were found. Retroflexed views revealed small hemorrhoids. The scope was then completely withdrawn from the patient and the procedure terminated. ADVERSE EVENTS: There were no complications. IMPRESSIONS: 1. Three areas of inflammation / edema / erythema / loss of vascular pattern / ulcers / nodular mucosa in the terminal ileum with largest being a medium sized, 3 x 1 cm, third-circumferential abnormal mucosa in the terminal ileum; The mucosa was edematous, erythematous, nodular, friable, ulcerated and had loss of vascularity and deep ulcers; multiple biopsies were performed ileocolonic surgical anastomosis in the transverse colon 3. Mild diverticulosis in the sigmoid colon 4. Random biopsies of the terminal ileum / colon / rectum obtained 5. Small internal hemorrhoids 6. Intubation to terminal ileum RECOMMENDATIONS: 1. await biopsy results 2. avoid NSAIDS 3. optimize Crohn's therapy (patient has been reluctant to take biologic therapy but will need to control small bowel inflammation with history of small bowel cancer with surgical resection) RECALL: Return in 3-6 month(s) for Colonoscopy after optimization of Crohn's therapy. Nimesh Lawson Dr eSigned: Nimesh Lawson Dr 09/06/2021 12:48 PM cc: CPT CODES: ICD9 CODES: PATIENT NAME: Lola Elliott MR#: [id number]
[2021-09-06 16:29] VITALS: TEMP 99
[2021-09-06 16:30] VITALS: BP 118/70; O2SAT 100
== END 2021-09-06 13:07 | disposition home or self-care (01) ==
LOC: OR 10:22
PROVIDERS: ATTEND Internal Medicine Gastroenterology
PROC: 0DBE8ZX Excision of Large Intestine, Via Natural or Artificial Opening Endoscopic, Diagnostic (ICD-10-PCS; 2021-09-06)
PROC: 0DBP8ZX Excision of Rectum, Via Natural or Artificial Opening Endoscopic, Diagnostic (ICD-10-PCS; 2021-09-06)
PROC: 0DBB8ZX Excision of Ileum, Via Natural or Artificial Opening Endoscopic, Diagnostic (ICD-10-PCS; principal; 2021-09-06 11:45)
DX: R10.32 Left lower quadrant pain (principal); R10.31 Right lower quadrant pain; R19.4 Change in bowel habit; K50.90 Crohn's disease, unspecified, without complications; K57.30 Diverticulosis of large intestine without perforation or abscess without bleeding; K64.8 Other hemorrhoids; K52.9 Noninfective gastroenteritis and colitis, unspecified; K63.3 Ulcer of intestine; Z86.010 Personal history of colon polyps; Z85.068 Personal history of other malignant neoplasm of small intestine; Z20.822 Contact with and (suspected) exposure to COVID-19
CPT/HCPCS: 88305; 45380; U0003; J2704; J7120